=== PATIENT | male | born 1945 | race Caucasian/White ===

== ENCOUNTER 2018-06-16 11:11 | Inpatient (IN) | payer MEDICARE, SELFPAY ==
[2018-06-16] VITALS (32 sets, daily range): BP systolic 93–190; BP diastolic 40–164; PULSE 57–224; RESP 13–23; TEMP 36.3–37.4; O2SAT 92–99
--- NOTE | 2018-06-16 11:27 | DI.RAD_ITS ---
SYMPTOMS/DIAGNOSIS: COUGH CHEST X-RAY: Comparison is 12/05/15. Comparison x-ray of the left shoulder is 08/25/16. The heart size and pulmonary vasculature are stable and within normal limits. There is an opacity seen in the left upper lobe, not present on prior examinations. The lungs are otherwise clear. There are degenerative changes seen in the spine. Old right rib fractures are seen. IMPRESSION: Left upper lobe opacity suspicious for pneumonia. A follow-up chest x-ray is recommended in this patient to document complete resolution of the left upper lobe infiltrate.
[2018-06-16 11:43] LABS: Lactate-non-spesis 3.7 mmol/L (0.6-1.4)
[2018-06-16 11:46] LABS: Abs Immature Grans 0.09 k/cumm (0.0-0.09); Absolute Basophil Count 0.01 k/cumm (0.0-0.2); Absolute Monocyte Count 1.35 k/cumm (0.11-0.7); Basophils % 0.1; Eosinophils % 0.7; HCT 44.3 % (40.0-50.0); HGB 14.6 g/dL (13.5-17.5); Immature Grans % 0.7; Lymphocytes % 14.6; Mean Corpuscular Hemoglobin 30.6 pg (27.0-33.0); Mean Corpuscular Volume 92.9 fL (80-95); Mean Platelet Volume 10.7 fL (8.0-11.0); Monocytes % 9.8; Neutrophils % 74.1; Platelet Count 268 x1000/uL (130-400); RBC 4.77 m/cumm (4.50-6.00); RBC Distribution Width 13.6 % (11.8-14.1); White Blood Cell Count 13.73 k/cumm (4.4-10.8)
[2018-06-16 11:50] LABS: Absolute Neutrophil Count 10.17 k/cumm (1.2-6.7)
[2018-06-16 12:10] LABS: ALT 31 U/L (12-78); AST 24 U/L (15-37); Albumin 3.4 g/dL (3.4-5.0); Alkaline Phosphatase 129 U/L (46-116); Anion Gap 12.5 mmol/L (3-11); BUN 28 mg/dL (7-18); CO2 27.5 mmol/L (21.0-32.0); CREATININE 2.22 mg/dL (0.70-1.30); Calcium 10.7 mg/dL (8.5-10.1); Chloride 94 mmol/L (98-107); Estimated GFR 29.26 (mL/min/1.73m2); Glucose 130 mg/dL (70-100); Potassium 4.2 mmol/L (3.5-5.1); Sodium 134 mmol/L (136-145)
[2018-06-16 12:14] LABS: NT-proBNP 307 pg/mL; Troponin I < 0.02 ng/mL (0.00-0.06)
--- NOTE | 2018-06-16 12:44 | DI.CT_ITS ---
SYMPTOMS/DIAGNOSIS: ABDOMINAL PAIN CT SCAN OF THE ABDOMEN AND PELVIS: A noncontrast CT scan of the abdomen and pelvis was performed due to the patient 's decreased renal function. Emphysematous changes are seen in the lung bases. Lack of IV contrast does limit evaluation of the abdominal and pelvic organs. There is patient motion artifact, which does limit the examination. The unenhanced visualized portions of the liver, spleen, pancreas, gallbladder and adrenal glands are unremarkable. The kidneys show no evidence of nephrolithiasis or hydronephrosis. The urinary bladder is intact. The reproductive organs are grossly unremarkable. There is atherosclerosis of the abdominal aorta and an infrarenal abdominal aortic aneurysm. Maximum diameter is 4.5 cm. This compares with the ultrasound from 12/05/15, at which time it was measured at 4.9 cm. The bowel shows no evidence of obstruction or inflammation. There is diverticulosis of the colon but no evidence of acute diverticulitis. No evidence of an acute appendix is present. No abdominal or pelvic ascites, adenopathy or pneumoperitoneum is present. Degenerative changes are seen in the spine. IMPRESSION: 1. Stable 4.5 cm infrarenal abdominal aortic aneurysm. 2. No evidence of an acute abdomen. The findings were discussed with Dr. Stefanie Gutierrez of the Emergency Department on the date of the examination.
[2018-06-16] MEDS: LEVOFLOXACIN 500 MG, LEVOFLOXACIN 250 MG 750 MG PO (13:49)
[2018-06-16] MEDS: Normal Saline 1,000 ML 1000 ML IV (13:49)
--- NOTE | 2018-06-16 13:55 | W.ED.GENAD ---
Discharge Plan Disposition Condition: Improving Discharge Details Chief Complaint: Abd Prob Reason For Visit: PNEUMONIA Admit Date/Time: 06/16/18 13:54 Admit Provider: Boaz Ohara Attending Provider: Boaz Ohara Primary Care Provider: Fidelina Goodman ED Provider: Stefanie Gutierrez Discharge Instructions Activity:: Activity as Tolerated Equipment/Supplies:: No Equipment Needed Diet:: As Tolerated Discharge Orders Discharge Orders: Discharge Order (Routine); Ordered 06/19/18 Ordered By: Judith Chen Discharge Data Discharge Date/Time-TO BE ENTERED AT DEPARTURE: 06/16/18 14:27 Medical Decision Making Angelita Segal is a 73 y/o man with h/o multiple medical problems presenting to the emergency department with 2 weeks of abdominal pain, unchanged over that time, several episodes of vomiting. Also notes SOB and cough. On exam Pt is non-toxic appearing, mild diffuse abd TTP without peritoneal signs. Concern for gasritis vs pancreatitis vs IBS vs UTI vs PNA vs metabolic/lyte derangement vs CHF vs other. Given time course doubt acute aortic process, appy, mesenteric ischemia. Doubt ACS. Plan for EKG, CXR, screening labs, IVF hydration. Likely w/o contrast given CKD. Poor GFR. Considered risks/benefits of CTA, CT a/p with contrast, and given 2 week time course without change in abd pain, will hold contrast and perform CT w/o. CT okay. CXR shows PNA. Will treat for CAP and admit. Pt initially wanted to leave AMA, but reconsidered and agrees to stay. Clinical Impession: PNA Disposition: [facility] inpatient Medical Records Medical records reviewed: Yes I reviewed the patient's medical records. Imaging Data Radiologic Study: Attestation: I personally reviewed and interpreted this imaging study as follows: Radiologist's impression: CHEST X-RAY: Comparison is 12/05/15. Comparison x-ray of the left shoulder is 08/25/16. The heart size and pulmonary vasculature are stable and within normal limits. There is an opacity seen in the left upper lobe, not present on prior examinations. The lungs are otherwise clear. There are degenerative changes seen in the spine. Old right rib fractures are seen. IMPRESSION: Left upper lobe opacity suspicious for pneumonia. A follow-up chest x-ray is recommended in this patient to document complete resolution of the left upper lobe infiltrate. Patient Name: ANGELITA SEGAL #: [id number]: [place] Ordering Provider: Stefanie Gutierrez M.D. : ADM IN Primary Care Provider: Fidelina Goodman NPDate of Exam: 06/16/18ex: M : 1945ge: [id number] Exam(s) a CT:CT abdomen & pelvis wo SYMPTOMS/DIAGNOSIS: ABDOMINAL PAIN CT SCAN OF THE ABDOMEN AND PELVIS: A noncontrast CT scan of the abdomen and pelvis was performed due to the patient's decreased renal function. Emphysematous changes are seen in the lung bases. Lack of IV contrast does limit evaluation of the abdominal and pelvic organs. There is patient motion artifact, which does limit the examination. The unenhanced visualized portions of the liver, spleen, pancreas, gallbladder and adrenal glands are unremarkable. The kidneys show no evidence of nephrolithiasis or hydronephrosis. The urinary bladder is intact. The reproductive organs are grossly unremarkable. There is atherosclerosis of the abdominal aorta and an infrarenal abdominal aortic aneurysm. Maximum diameter is 4.5 cm. This compares with the ultrasound from 12/05/15, at which time it was measured at 4.9 cm. The bowel shows no evidence of obstruction or inflammation. There is diverticulosis of the colon but no evidence of acute diverticulitis. No evidence of an acute appendix is present. No abdominal or pelvic ascites, adenopathy or pneumoperitoneum is present. Degenerative changes are seen in the spine. IMPRESSION: 1. Stable 4.5 cm infrarenal abdominal aortic aneurysm. 2. No evidence of an acute abdomen. Lab Data Lab results reviewed: Yes I reviewed the patient's lab results. ECG Data Attestation: I personally reviewed and interpreted this ECG (s) as follows: Interpretation: EKG shows normal sinus rhythm at 78 with normal axis, diffuse ST changes with similar morphology seen on prior, no STEMI. HPI General Date/Time Provider Initiated Documentation: 06/16/18 11:26. Limitations to Documentation: no limitations. Information obtained by: patient, RN notes reviewed and old records reviewed. HPI Narrative: Angelita Segal is a 73-year-old man with h/o COPD, HLD, AAA, HTN, IBS, CKD, CAD presenting to the emergency department with 2 weeks of abdominal pain. Pt reports that pain is per-umbilical, non-radiating, and unchanged since onset. Pain is dull and constant. Pt was sent here for further eval by PCP's office. He reports that he feels essentially at baseline, but pain is nagging. Has continued to eat and drink normally. He denies any other pain, fever, d/c, weakness, n/t, lightheadedness. He reports that he has had a few episodes of non-bilious non-bloody emesis and cough over the past few days, also has been mildly SOB. Abdominal worse with movement and improved with rest, no other modifiers. No recent travel. No other recent illness. Not hospitalized in the past few months. Related Data Home Medications Medication Instructions Recorded Confirmed aspirin [Aspir-81] 81 mg PO DAILY tab-cap 12/12/15 06/23/18 fluticasone-salmeterol [Advair 1 ea INHALATION BID #3 inhaler 08/12/17 06/23/18 Diskus] albuterol sulfate [ProAir HFA] 1 - 2 puff INHALATION Q4-6H PRN #3 09/06/17 06/23/18 inhaler nitroglycerin [Nitrostat] 0.4 mg SUBLINGUAL PRN #25 tab 11/26/17 06/23/18 umeclidinium [Incruse Ellipta] 62.5 mcg INHALATION DAILY #3 11/26/17 06/23/18 inhaler hydrochlorothiazide 12.5 mg PO DAILY #90 tab-cap 12/19/17 06/23/18 lisinopril 20 mg PO DAILY #90 tab 12/19/17 06/23/18 loratadine 10 mg PO DAILY #90 tab-cap 12/19/17 06/23/18 metoprolol succinate 100 mg PO DAILY #90 tab 12/19/17 06/23/18 omeprazole 40 mg PO BID #30 cap 06/19/18 06/23/18 sennosides 8.6 mg tablet 8.6 mg PO BID PRN #20 tab 06/23/18 06/23/18 Previous Rx's Medication Instructions Recorded fluticasone-salmeterol [Advair 1 ea INHALATION BID #3 inhaler 08/12/17 Diskus] albuterol sulfate [ProAir HFA] 1 - 2 puff INHALATION Q4-6H PRN #3 09/06/17 inhaler nitroglycerin [Nitrostat] 0.4 mg SUBLINGUAL PRN #25 tab 11/26/17 umeclidinium [Incruse Ellipta] 62.5 mcg INHALATION DAILY #3 11/26/17 inhaler hydrochlorothiazide 12.5 mg PO DAILY #90 tab-cap 12/19/17 lisinopril 20 mg PO DAILY #90 tab 12/19/17 loratadine 10 mg PO DAILY #90 tab-cap 12/19/17 metoprolol succinate 100 mg PO DAILY #90 tab 12/19/17 omeprazole 40 mg PO BID #30 cap 06/19/18 sennosides 8.6 mg tablet 8.6 mg PO BID PRN #20 tab 06/23/18 Allergies Allergy/AdvReac Type Severity Reaction Status Date / Time benazepril Allergy Mild unknown Unverified 06/23/18 14:10 ezetimibe Allergy Mild NO Unverified 06/23/18 14:10 REACTION NOTED pravastatin Allergy Mild NO Unverified 06/23/18 14:10 REACTION NOTED erythromycin base AdvReac Mild GI SYMPTOMS Unverified 06/23/18 14:10 fenofibrate AdvReac Mild ABDOMINAL Unverified 06/23/18 14:10 PAIN niacin AdvReac Mild FLUSHING Unverified 06/23/18 14:10 REDNESS nortriptyline AdvReac Mild NAUSEA Unverified 06/23/18 14:10 omeprazole AdvReac Mild BACK PAIN Unverified 06/23/18 14:10 General Stated Complaint: Abd Prob LUIS: 2 Review of Systems Review of Systems Constitutional: denies fevers Eyes: denies eye pain ENT: denies facial pain, dental pain, sore throat Cardiovascular: denies chest pain, edema Respiratory: reports SOB, cough GI: reports abdominal pain, vomiting, denies diarrhea : denies flank pain MSK: denies back pain, neck pain, arthralgias, myalgias Skin: denies rash Neuro: denies headaches, lightheadedness, weakness PFSH Family History Mother No problems noted. Father Myocardial infarction Medical History AAA (abdominal aortic aneurysm) ASCVD (arteriosclerotic cardiovascular disease) Headache HLD (hyperlipidemia) COPD (chronic obstructive pulmonary disease) GERD (gastroesophageal reflux disease) HTN (hypertension) IBS (irritable bowel syndrome) ASCVD (arteriosclerotic cardiovascular disease) (Chronic 03/04/13) Essential hypertension (Chronic 03/04/13) PVD (peripheral vascular disease) (Chronic 04/08/15) Hyperlipidemia, unspecified (Chronic 03/04/13) Gastroesophageal reflux disease (Chronic 10/02/11) Chronic obstructive pulmonary disease (COPD) (Chronic 10/02/11) Chronic kidney disease (CKD), stage III (moderate) (Chronic 09/23/13) 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) Anxiety (Chronic 10/02/11) Abdominal aortic aneurysm (AAA) (Chronic 10/02/11) Hypercalcemia (Resolved 07/19/16) Social History Smoking/Tobacco Use Status: Former Tobacco Use Surgical History Coronary Stent (08/05/06) Repair of inguinal hernia Trigger Finger release (05/06/16) Exam Narrative Exam Narrative: Constitutional: [id number], pleasant, conversing normally HENT: head atraumatic, normocephalic normal inspection, mucous membranes moist Eyes: conjunctiva normal, sclera normal, pupils 3mm b/l Neck: no stridor, normal ROM, trachea midline Chest: normal inspection Resp: normal work of breathing, LCTAB Cardio: normal rate, normal rhythm, no murmur appreciated GI: abdomen soft, non-distended, mild generalized TTP without peritoneal signs, neg McBpt TTP, neg murphys, no mass Back: normal inspection, no rash Skin: warm, dry, normal color, no rash Neuro: alert, not altered, grossly non-focal, normal tone Ext: no edema Psych: normal mood, normal affect, normal behavior Course Vital Signs Temperature 36.3 C L 06/16/18 11:17 Pulse 78 06/16/18 11:17 Respiratory Rate 20 06/16/18 11:17 Blood Pressure 102/51 L 06/16/18 11:17 Pulse Oximetry 98 06/16/18 11:17 Temperature 37 C 06/16/18 12:27 Temperature Source Temporal Artery Scan 06/16/18 12:27 Pulse 80 06/16/18 12:27 Respiratory Rate 14 06/16/18 12:27 Respiratory Effort Non-Labored 06/16/18 11:25 Blood Pressure 93/52 L 06/16/18 12:27 Blood Pressure Position Sitting 06/16/18 11:17 Pulse Oximetry 97 06/16/18 12:27 Oxygen Delivery Method Room Air 06/16/18 12:27 Oxygen Flow Rate 0 06/16/18 12:27 Pain Level 10 06/16/18 12:27 Lab/Test Results Lab/Test Results: 06/16/18 11:30 Nasopharynx Influenza Types A,B Antigen - Final Laboratory Tests Range/Units 06/16/18 06/16/18 06/16/18 11:25 11:25 11:25 WBC (4.4-10.8) k/cumm 13.73 H RBC (4.50-6.00) m/cumm 4.77 Hgb (13.5-17.5) g/dL 14.6 Hct (40.0-50.0) % 44.3 MCV (80-95) fL 92.9 MCH (27.0-33.0) pg 30.6 MCHC (32.0-36.0) g/dL 33.0 RDW (11.8-14.1) % 13.6 Plt Count (130-400) x1000/uL 268 MPV (8.0-11.0) fL 10.7 Immature Gran % 0.7 Neutrophils % 74.1 Lymphocytes % 14.6 Monocytes % 9.8 Eosinophils % 0.7 Basophils % 0.1 Absolute Neutrophils (1.2-6.7) k/cumm 10.17 H Absolute Lymphocytes (1.2-3.4) k/cumm 2.00 Absolute Monocytes (0.11-0.7) k/cumm 1.35 H Absolute Eosinophils (0.0-0.7) k/cumm 0.10 Absolute Basophils (0.0-0.2) k/cumm 0.01 Sodium (136-145) mmol/L 134 L Potassium (3.5-5.1) mmol/L 4.2 Chloride (98-107) mmol/L 94 L Carbon Dioxide (21.0-32.0) mmol/L 27.5 Anion Gap (3-11) mmol/L 12.5 H BUN (7-18) mg/dL 28 H Creatinine (0.70-1.30) mg/dL 2.22 H Estimated GFR/1.73 m2 (mL/min/1.73m2) 29.26 Glucose (70-100) mg/dL 130 H Lactate (0.6-1.4) mmol/L Calcium (8.5-10.1) mg/dL 10.7 H Total Bilirubin (0.2-1.0) mg/dL 1.0 AST (15-37) U/L 24 ALT (12-78) U/L 31 Alkaline Phosphatase (46-116) U/L 129 H Troponin I (0.00-0.06) ng/mL < 0.02 NT-Pro-B Natriuret Pep ( - 299) pg/mL 307 H Total Protein (6.4-8.2) g/dL 8.0 Albumin (3.4-5.0) g/dL 3.4 Range/Units 06/16/18 11:25 WBC (4.4-10.8) k/cumm RBC (4.50-6.00) m/cumm Hgb (13.5-17.5) g/dL Hct (40.0-50.0) % MCV (80-95) fL MCH (27.0-33.0) pg MCHC (32.0-36.0) g/dL RDW (11.8-14.1) % Plt Count (130-400) x1000/uL MPV (8.0-11.0) fL Immature Gran % Neutrophils % Lymphocytes % Monocytes % Eosinophils % Basophils % Absolute Neutrophils (1.2-6.7) k/cumm Absolute Lymphocytes (1.2-3.4) k/cumm Absolute Monocytes (0.11-0.7) k/cumm Absolute Eosinophils (0.0-0.7) k/cumm Absolute Basophils (0.0-0.2) k/cumm Sodium (136-145) mmol/L Potassium (3.5-5.1) mmol/L Chloride (98-107) mmol/L Carbon Dioxide (21.0-32.0) mmol/L Anion Gap (3-11) mmol/L BUN (7-18) mg/dL Creatinine (0.70-1.30) mg/dL Estimated GFR/1.73 m2 (mL/min/1.73m2) Glucose (70-100) mg/dL Lactate (0.6-1.4) mmol/L 3.7 H Calcium (8.5-10.1) mg/dL Total Bilirubin (0.2-1.0) mg/dL AST (15-37) U/L ALT (12-78) U/L Alkaline Phosphatase (46-116) U/L Troponin I (0.00-0.06) ng/mL NT-Pro-B Natriuret Pep ( - 299) pg/mL Total Protein (6.4-8.2) g/dL Albumin (3.4-5.0) g/dL
[2018-06-16] MEDS: LEVOFLOXACIN 750 MG/150 ML BAG 150 MG IVPB (14:08)
--- NOTE | 2018-06-16 14:27 | W.PM.HP.N ---
Date of service: 06/16/18 Time of Service: 14:27 Assessment and Plan (1) Pneumonia involving left lung: Current visit: Yes Status: Acute Mild leukocytosis with cough. The abdominal pain could be related to his left-sided pneumonia. Empirically treated with Levofloxacin. He received a 750 mg IV bolus. Given his acute renal dysfunction will put him on 48-hour dosing of 500 mg daily. He is not hypoxic nor in any respiratory distress. PRN albuterol updrafts. (2) Abdominal pain: Current visit: Yes Status: Acute He has had this abdominal pain off and on for the last 2 weeks. He has a number of potential reasons for the abdominal pain including an abdominal aortic aneurysm, irritable bowel disease, pneumonia, heart disease. No clear etiology at this time. His exam is quite benign and the abdominal CT scan is reassuring. Will repeat his lactate level and troponins. Monitor for any signs or symptoms of bleeding. (3) AAA (abdominal aortic aneurysm): Current visit: Yes Status: None 4.9 cm aortic aneurysm by ultrasound 12/05/2015. This does not appear further enlarged by CT scan today. No evidence of leakage. Serial exams and close monitoring. (4) IBS (irritable bowel syndrome): Current visit: Yes Status: None Likely cause of his ongoing intermittent abdominal pain. Continue as needed Levsin. (5) ASCVD (arteriosclerotic cardiovascular disease): Current visit: No Status: Chronic History of prior stent placement. There does not appear to be an acute coronary syndrome at this time. History of Present Illness Chief Complaint: Abdominal pain with cough Narrative: This is a 73-year-old male who has had about a 2-week history of diffuse abdominal pain. Workup to date has been negative. He states there is been associated vomiting. He described the pain as so bad he cannot lay down flat. He describes the pain as around his umbilicus. Workup in the emergency room was negative including a noncontrast abdominal CT scan. He does have a mild leukocytosis and chest x-ray shows a left upper lobe pneumonia. He does have an associated cough but denied fever chills or Reiger's. He is admitted for further monitoring. He does have a history of an abdominal aortic aneurysm but that does not appear to be playing a role in his symptomatology at this time. He will be treated for pneumonia and serial abdominal exams. Review of Systems Review of Systems All systems reviewed & are unremarkable except as noted in HPI and below Constitutional Denies excessive sweating, Denies frequent falls and Denies headache(s) Comments: Describes severe periumbilical abdominal pain such that he cannot even lay down flat ENT Denies headache(s) and Denies throat swelling Cardiovascular Denies chest pain, Denies edema, Denies dyspnea, Denies dyspnea on exertion and Denies orthopnea Respiratory Reports cough (He states this is better), Denies dyspnea and Denies dyspnea on exertion Gastrointestinal Reports abdominal pain (Naveen umbilical), Denies coffee ground emesis, Denies diarrhea and Reports vomiting Genitourinary Denies urinary frequency and Denies urinary incontinence Musculoskeletal Denies back pain and Denies deformity Integumentary/Breasts Denies rash, Denies sores and Denies wounds Neurologic Denies confusion, Denies frequent falls and Denies headache(s) Psychiatric Denies confusion, Denies depression and Denies suicidal ideation Endocrine Denies excessive sweating Hematologic/Lymphatic Denies easy bleeding and Denies easy bruising Allergic/Immunologic Denies urticaria and Denies throat swelling PFSH Family History Mother No problems noted. Father Myocardial infarction Medical History AAA (abdominal aortic aneurysm) ASCVD (arteriosclerotic cardiovascular disease) Headache HLD (hyperlipidemia) COPD (chronic obstructive pulmonary disease) GERD (gastroesophageal reflux disease) HTN (hypertension) IBS (irritable bowel syndrome) ASCVD (arteriosclerotic cardiovascular disease) (Chronic 03/04/13) Essential hypertension (Chronic 03/04/13) PVD (peripheral vascular disease) (Chronic 04/08/15) Hyperlipidemia, unspecified (Chronic 03/04/13) Gastroesophageal reflux disease (Chronic 10/02/11) Chronic obstructive pulmonary disease (COPD) (Chronic 10/02/11) Chronic kidney disease (CKD), stage III (moderate) (Chronic 09/23/13) 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) Anxiety (Chronic 10/02/11) Abdominal aortic aneurysm (AAA) (Chronic 10/02/11) Hypercalcemia (Resolved 07/19/16) Social History Smoking/Tobacco Use Status: Former Tobacco Use Surgical History Coronary Stent (08/05/06) Repair of inguinal hernia Trigger Finger release (05/06/16) Meds Home Medications Medication Instructions Recorded Confirmed Type aspirin [Aspir-81] 81 mg PO DAILY tab-cap 12/12/15 06/16/18 History hyoscyamine sulfate [Levsin] 0.125 - 0.25 mg PO Q4H PRN #100 tab 07/24/17 06/16/18 Rx dexlansoprazole [Dexilant] 30 mg PO DAILY #90 tab-cap 08/12/17 06/16/18 Rx fluticasone-salmeterol [Advair 1 ea INHALATION BID #3 inhaler 08/12/17 06/16/18 Rx Diskus] albuterol sulfate [ProAir HFA] 1 - 2 puff INHALATION Q4-6H PRN #3 09/06/17 06/16/18 Rx inhaler nitroglycerin [Nitrostat] 0.4 mg SUBLINGUAL PRN #25 tab 11/26/17 06/16/18 Rx umeclidinium [Incruse Ellipta] 62.5 mcg INHALATION DAILY #3 11/26/17 06/16/18 Rx inhaler hydrochlorothiazide 12.5 mg PO DAILY #90 tab-cap 12/19/17 06/16/18 Rx lisinopril 20 mg PO DAILY #90 tab 12/19/17 06/16/18 Rx loratadine 10 mg PO DAILY #90 tab-cap 12/19/17 06/16/18 Rx metoprolol succinate 100 mg PO DAILY #90 tab 12/19/17 06/16/18 Rx Atorvastatin Calcium 20 mg PO DAILY #90 tab-cap 04/02/18 06/16/18 Clinic Allergies Allergy/AdvReac Type Severity Reaction Status Date / Time benazepril Allergy Mild unknown Unverified 06/16/18 10:41 ezetimibe Allergy Mild NO Unverified 06/16/18 10:41 REACTION NOTED pravastatin Allergy Mild NO Unverified 06/16/18 10:41 REACTION NOTED erythromycin base AdvReac Mild GI SYMPTOMS Unverified 06/16/18 10:41 fenofibrate AdvReac Mild ABDOMINAL Unverified 06/16/18 10:41 PAIN niacin AdvReac Mild FLUSHING Unverified 06/16/18 10:41 REDNESS nortriptyline AdvReac Mild NAUSEA Unverified 06/16/18 10:41 omeprazole AdvReac Mild BACK PAIN Unverified 06/16/18 10:41 Exam Narrative Exam Narrative: Generally pleasant and in no apparent distress. He is lying flat on the stretcher. He had no cough or dyspnea during my exam Const General: cooperative, comfortable, no acute distress and not diaphoretic Nutritional Appearance: overweight Orientation: alert, awake and oriented x3 HENMT Head: normal to inspection Ears: hearing grossly normal bilaterally General nose exam: external nose normal Face and sinus: normal facial exam Mouth: oral mucosae normal Eyes General: appearance normal, both eyes and all related structures Neck Neck: normal visual inspection Chest Chest: normal inspection of the chest Resp Effort & Inspection: normal respiratory effort Auscultation: clear to auscultation bilaterally Cardio Rate: regular rate Rhythm: regular rhythm Heart Sounds: S1 normal, S2 normal and no murmurs GI Inspection: normal to inspection and no abdominal wall ecchymosis Palpation: soft, no hepatosplenomegaly, no aortic enlargement, no hepatosplenomegaly and nontender (Subjective tenderness in a bandlike pattern across the upper abdomen) Percussion: normal to percussion Auscultation: normal bowel sounds Back/Spine/Pelvis Back: no CVA tenderness Thoracic/Lumbar Spine: thoracic and lumbar spine normal to inspection Skin General skin exam: no rashes or lesions noted Lesions: no lesions Neuro General: moves all extremities Speech: speech normal Extrem General: normal to inspection and no edema Psych Appearance: grossly normal Mental Status: mental status grossly normal Speech and Movement: speech and movement normal Mood: congruent mood Affect: normal affect Attitude: cooperative Thought Process: normal Results Labs : 06/16/18 11:25 06/16/18 11:25 Laboratory Results - last 24 hr 06/16/18 06/16/18 06/16/18 11:25 11:25 11:25 WBC 13.73 H RBC 4.77 Hgb 14.6 Hct 44.3 MCV 92.9 MCH 30.6 MCHC 33.0 RDW 13.6 Plt Count 268 MPV 10.7 Immature Gran % 0.7 Neutrophils % 74.1 Lymphocytes % 14.6 Monocytes % 9.8 Eosinophils % 0.7 Basophils % 0.1 Absolute Neutrophils 10.17 H Absolute Lymphocytes 2.00 Absolute Monocytes 1.35 H Absolute Eosinophils 0.10 Absolute Basophils 0.01 Sodium 134 L Potassium 4.2 Chloride 94 L Carbon Dioxide 27.5 Anion Gap 12.5 H BUN 28 H Creatinine 2.22 H Estimated GFR/1.73 m2 29.26 Glucose 130 H Lactate Calcium 10.7 H Total Bilirubin 1.0 AST 24 ALT 31 Alkaline Phosphatase 129 H Troponin I < 0.02 NT-Pro-B Natriuret Pep 307 H Total Protein 8.0 Albumin 3.4 06/16/18 11:25 WBC RBC Hgb Hct MCV MCH MCHC RDW Plt Count MPV Immature Gran % Neutrophils % Lymphocytes % Monocytes % Eosinophils % Basophils % Absolute Neutrophils Absolute Lymphocytes Absolute Monocytes Absolute Eosinophils Absolute Basophils Sodium Potassium Chloride Carbon Dioxide Anion Gap BUN Creatinine Estimated GFR/1.73 m2 Glucose Lactate 3.7 H Calcium Total Bilirubin AST ALT Alkaline Phosphatase Troponin I NT-Pro-B Natriuret Pep Total Protein Albumin Last Vital Signs Temp 37 C 06/16/18 12:27 Pulse 80 06/16/18 12:27 Resp 14 06/16/18 12:27 BP 93/52 L 06/16/18 12:27 Pulse Ox 97 06/16/18 12:27
[2018-06-16] MEDS: Normal Saline 1,000 ML 75 ML IV (15:04)
[2018-06-16] MEDS: Enoxaparin 30 MG/0.3 ML SYR SC (15:14)
[2018-06-16] MEDS: Normal Saline Flush 10 ML SYR (15:41)
[2018-06-16 15:45] LABS: Lactate-non-spesis 1.7 mmol/L (0.6-1.4)
[2018-06-16 16:29] LABS: Troponin I < 0.02 ng/mL (0.00-0.06)
--- NOTE | 2018-06-16 17:01 | PDOC.CMIN ---
- If Service Date Differs Date of service: 06/16/18 Time of Service: 17:01 Care Management Initial Assess REASON FOR HOSPITALIZATION:: Pneumonia PAST MEDICAL HISTORY/PAST SURGICAL HISTORY:: AAA, ASCVD, COPD, HTN, IBS, GERD, CKD, Nava's esophagus, anxiety. PREVIOUS FUNCTIONAL STATUS/SOCIAL/FAMILY SUPPORTS:: John is retierd from [place] after 45 years. He has no children he and his brother care for his 97 year old mother. He lives in his own home with his mother and brother. He is independent at baseline with ADL's and transportation. CURRENT FUNCTIONAL STATUS:: Jhon is in the ED when CM into visit he alert and engaged. He is worried about being admitted to the hospital and the cost. CM reviewed benefits with the patient related to his medicare and offered to complete fiancial assitance applicaiton with the patient. He agrees to be admitted for IV antibiotics. ADVANCE DIRECTIVES:: None on file at [facility] Has patient been provided with information about the portal?: Yes Did the patient sign up for the portal?: No CODE STATUS:: Full Code INSURANCE COVERAGE / FINANCIAL ISSUES:: Medicare CURRENT HOME/COMMUNITY SERVICES/EQUIPMENT:: None at this time per pt report. PRIMARY CARE PHYSICIAN:: [facility] Internal med POTENTIAL DISCHARGE NEEDS:: Follow up appointment ivette with primary care provider prior to discharge. PATIENT/FAMILY EDUCATION NEEDS:: Discharge education. limitations and follow up plan of care. ANTICIPATED BARRIERS TO DISCHARGE:: None identified TRANSPORTATION:: Via private car at time of discharge. PLAN:: John is being admitted for abdomial pain and pneumonia. He is receiving IV antibiotics and fluids. He will be discharged home when medically ready no anticipated services at time of discharge. CM to complete financial assistance application with patient prior to discharge.
--- NOTE | 2018-06-16 17:22 | INITIAL_ITS ---
- If Service Date Differs Date of service: 06/16/18 Time of Service: 17:01 Care Management Initial Assess REASON FOR HOSPITALIZATION:: Pneumonia PAST MEDICAL HISTORY/PAST SURGICAL HISTORY:: AAA, ASCVD, COPD, HTN, IBS, GERD, CKD, Nava's esophagus, anxiety. PREVIOUS FUNCTIONAL STATUS/SOCIAL/FAMILY SUPPORTS:: John is retierd from [place] after 45 years. He has no children he and his brother care for his 97 year old mother. He lives in his own home with his mother and brother. He is independent at baseline with ADL's and transportation. CURRENT FUNCTIONAL STATUS:: John is in the ED when CM into visit he alert and engaged. He is worried about being admitted to the hospital and the cost. CM reviewed benefits with the patient related to his medicare and offered to complete fiancial assitance applicaiton with the patient. He agrees to be admitted for IV antibiotics. ADVANCE DIRECTIVES:: None on file at [facility] Has patient been provided with information about the portal?: Yes Did the patient sign up for the portal?: No CODE STATUS:: Full Code INSURANCE COVERAGE / FINANCIAL ISSUES:: Medicare CURRENT HOME/COMMUNITY SERVICES/EQUIPMENT:: None at this time per pt report. PRIMARY CARE PHYSICIAN:: [facility] Internal med POTENTIAL DISCHARGE NEEDS:: Follow up appointment ivette with primary care provider prior to discharge. PATIENT/FAMILY EDUCATION NEEDS:: Discharge education. limitations and follow up plan of care. ANTICIPATED BARRIERS TO DISCHARGE:: None identified TRANSPORTATION:: Via private car at time of discharge. PLAN:: John is being admitted for abdomial pain and pneumonia. He is receiving IV antibiotics and fluids. He will be discharged home when medically ready no anticipated services at time of discharge. CM to complete financial assistance application with patient prior to discharge.
[2018-06-16] MEDS: Budesonide/Formoterol 160/4.5 6 GM 60 PUFF INH IH (19:42)
[2018-06-16 21:07] LABS: Troponin I < 0.02 ng/mL (0.00-0.06)
[2018-06-16] MEDS: Atorvastatin 20 MG TAB PO (21:21)
[2018-06-16] MEDS: Acetaminophen 325 MG TAB PO (23:38)
[2018-06-17] VITALS (10 sets, daily range): BP systolic 105–179; BP diastolic 57–80; PULSE 54–89; RESP 4–19; TEMP 36.3–37.3; O2SAT 92–97
[2018-06-17] MEDS: Normal Saline 1,000 ML 75 ML IV (04:04)
[2018-06-17 05:59] LABS: Bilirubin Negative (Negative); Blood Negative (Negative); Clarity Sl Cloudy; Glucose Negative (Negative); Ketones Trace mg/dL (Negative); Leukocyte Esterase Negative (Negative); Nitrite Negative (Negative); Urobilinogen 0.2 EU/dL (Up TO 0.2); pH 5.5 (5-8)
[2018-06-17] MEDS: Acetaminophen 325 MG TAB PO ×2 (06:49→21:17)
[2018-06-17 06:57] LABS: Abs Immature Grans 0.04 k/cumm (0.0-0.09); Absolute Basophil Count 0.01 k/cumm (0.0-0.2); Absolute Eosinophil Count 0.12 k/cumm (0.0-0.7); Absolute Lymphocyte Count 1.31 k/cumm (1.2-3.4); Absolute Monocyte Count 0.75 k/cumm (0.11-0.7); Basophils % 0.2; Eosinophils % 1.9; HCT 36.8 % (40.0-50.0); HGB 12.1 g/dL (13.5-17.5); Immature Grans % 0.6; Lymphocytes % 21.2; Mean Corp. HGB Concentration 32.9 g/dL (32.0-36.0); Mean Corpuscular Hemoglobin 30.7 pg (27.0-33.0); Mean Corpuscular Volume 93.4 fL (80-95); Mean Platelet Volume 10.4 fL (8.0-11.0); Monocytes % 12.1; Platelet Count 162 x1000/uL (130-400); RBC 3.94 m/cumm (4.50-6.00); RBC Distribution Width 13.2 % (11.8-14.1); White Blood Cell Count 6.18 k/cumm (4.4-10.8)
[2018-06-17 06:58] LABS: Absolute Neutrophil Count 3.96 k/cumm (1.2-6.7)
[2018-06-17 07:18] LABS: ALT 22 U/L (12-78); AST 20 U/L (15-37); Albumin 2.4 g/dL (3.4-5.0); Alkaline Phosphatase 97 U/L (46-116); Anion Gap 6.2 mmol/L (3-11); BUN 26 mg/dL (7-18); Bilirubin, Total 0.5 mg/dL (0.2-1.0); CO2 27.8 mmol/L (21.0-32.0); CREATININE 1.83 mg/dL (0.70-1.30); Calcium 9.2 mg/dL (8.5-10.1); Chloride 104 mmol/L (98-107); Estimated GFR 36.57 (mL/min/1.73m2); Glucose 101 mg/dL (70-100); Potassium 4.7 mmol/L (3.5-5.1); Sodium 138 mmol/L (136-145); Total Protein 6.1 g/dL (6.4-8.2)
[2018-06-17] MEDS: Umeclidinium 7 CAP INHALER 1 CAP IH (07:42)
[2018-06-17] MEDS: Budesonide/Formoterol 160/4.5 6 GM 60 PUFF INH IH ×2 (07:45→21:13)
[2018-06-17] MEDS: Dexlansoprazole 30 MG CAP PO (08:00)
[2018-06-17 09:16] LABS: Lactate-non-spesis 0.9 mmol/L (0.6-1.4)
--- NOTE | 2018-06-17 10:07 | PT.INIE ---
Date of service: 06/17/18 Time of Service: 10:07 PT Notes Inpatient Physical Therapy Evaluation Date: 06/17/18 Referring Doctor: Boaz Ohara PT Orders: PT CONSULT: elderly male with pneumonia and abdominal pain. deconditioned. Precautions: Fall precautions Patient Profile/Admitting Diagnosis: Pt is a 73yr old male admitted abdominal pain and pneumonia. PMHX: chronic obstructive pulmonary disease, abdominal aortic aneurysm, arteriosclerotic cardiovascular disease, myocardial infarction, peripheral vascular disease, compression fracture, anxiety, chronic kidney disease, hypertension, hyperlipidemia, gastroesophageal reflux disease, Nava's Esophagus Social History/Home Situation: Lives in a house, 2 steps with railing to enter, baseline mobility independent gait with no device, independent with ADLS. Equipment Owned/DME: none Subjective: Pt sitting in recliner chair, alert and agreeable to PT Consult. Pt states he can walk. Objective: General Observation: telemetry Mental Status: A & Ox3 Pain: no c/o pain Bed Mobility/Transfers: Sit-stand: independent Stand-sit: independent Gait: independent with no device 300ft, steady step through gait pattern no loss of balance Stairs: up/down 5 steps with single railing, independent, step over step sequence Balance: Static Sitting: normal Dynamic Sitting: normal Static Standing: normal Dynamic Standing: good Special Tests: Mobility Limitations Standardized Measure [facility] 6 clicks Basic Mobility Inpatient Short Form: Raw Score: 24 Standardized Score: 61.14 CMS Score: 0% CMS Modifier: CH Informed Consent/Education: Patient instructed in purpose of PT consult and plan of care. Assessment: Pt is a 73yr old male admitted abdominal pain and pneumonia in setting of chronic obstructive pulmonary disease, abdominal aortic aneurysm. Patient presents at baseline level of functional mobility, independent with transfers, independent gait with no device, independent with stairs. Pt is not in need of skilled therapy services, recommend nursing walk patient's in hallway until discharge to maintain, anticipate return to home setting when medically cleared. Impairments are contributing to the following functional limitations: AMPAC score CMS Score: 0% Patient is assessed as a Low 29841 complexity based on the following: History: see above Examination: see above Presentation: stable Decision Making: AMPAC score CMS Score: 0% Goals: not applicable Plan of Care/Treatment Plan: PT eval DISCHARGE RECOMMENDATIONS: Home TREATMENT CODE/TIME: 24 IE 10:05 G Codes in the area mobility of walking and moving around: current status [id number] []; projected status GP G8979-[]. Discharge status (if discharging) GP G8980 -[facility] score [facility] Score: 0% Sue Cm PT
--- NOTE | 2018-06-17 10:24 | PDOC.CMPRO ---
- If Service Date Differs Date of service: 06/17/18 Time of Service: 10:24 Care Management Progress Note S/O: CM met with the patient at the bedside and provided the financial assistance application and will follow up with patient in the morning. CM to send it to patient accounts he will need to follow up with additional information. John will have an ultra sound today to evaluate his aortic aneurism. He continues on IV antibiotics and pain control for his abdominal pain. A:John is a 73 year old male admitted with pneumonia and abdominal pain P:John remains on IV antibiotic he will have an ultra sound today. John will be discharged home when medically ready per provider.
[2018-06-17] MEDS: Pantoprazole 40 MG VIAL IVP (10:38)
--- NOTE | 2018-06-17 11:43 | NUR.NOTE ---
Nursing Note: Pt arrived from PACU, VSS, A&Ox3, denies pain. Home CPAP with Pt. Goodwin in place, cryo cuff on, IV patent. HR reg, LS clear. Back sl bloody from spinal, not actively bleeding. CMST's WNL. will con't to monitor.
--- NOTE | 2018-06-17 14:16 | CHAPLAIN ---
John was up in his chair when I visited. He was pleasant and engaged in a conversation. He doesn't expect any family member will be in to visit, due to the weather. He and his brother care for their mother in John's home. John tells me he retired 5 years ago from working at [employer] for many years, at a job he really enjoyed. I explained my role and offered support. John said he knew there were chaplains here at the [facility].
--- NOTE | 2018-06-17 14:43 | PHARADMIT ---
Admission Pharmacy Clinical Review pneumonia Code Status Full Code Current Weight 75.3 kg Renally Cleared and Narrow Therapeutic Index Meds Crcl ~34.00 mL/min current meds okay QTc Value / Action Taken QTc 483 has levofloxacin and formotorol ordered BP Control, Fever BP 179/73 afebrile Electrolytes reviewed within normal limits DVT Prophylaxis enoxaparin Opiate Usage / Scheduled Bowel Regimen Ordered no/prn Plt/SCr for Heparin / Enoxaparin plt 162 (down from 268) SCr 1.83 INR for Warfarin n/a H/H stable, WBC/Bands h/h 12.1/36.8 wbc 6.18 Antibiotic appropriateness levofloxacin Cultures and Sensitivities influenza negative Surgical ABX d/c within 24 hr n/a DM control / Insulin Dosing BG 101 none Heart Failure (Check EF%) (ALYSSIA's, B-Block, Diuretics) lisinopril, HCTZ, metoprolol (all home meds/not currently ordered) IV to PO Switch n/a Home Meds Reviewed multiple anticholinergic meds- umeclidinium, hyoscyamine, loratadine Home Meds Not Ordered aspirin, dexlansoprazole (has pantoprazole ordered), advair (has symbicort ordered), HCTZ, lisinopril, loratadine, metoprolol Comments watch platelets
--- NOTE | 2018-06-17 15:47 | PGE_ITS ---
Date of Service Date of service: 06/17/18 Time of Service: 15:46 Assessment and Plan (1) Pneumonia involving left lung: Current visit: Yes Status: Acute Continue Levofloxacin day #2 - increase dose secondary to improved renal function. Continue prn nebs. (2) Abdominal pain: Current visit: Yes Status: Acute Intermittent, mild, achy upper abdominal pain over the last few weeks. CT with stable AAA, as confirmed by conversation with radiologist. Patient also with a prior history of IBS, but cannot perform CT with contrast to rule out potential mesenteric ischemia given history of Global Vascular Disease, but symptoms are not related to eating. No clear etiology at this time. LFTs are normal. Check a lipase but doubt pancreatitis. Change oral to IV PPI therapy. Mild anemia, not microcytic - monitor. His exam is and remains benign, and abdominal imaging is reassuring. Monitor for any signs or symptoms of bleeding. (3) AAA (abdominal aortic aneurysm): Current visit: Yes Status: None 4.9 cm aortic aneurysm by ultrasound 12/05/2015, confirmed stable by CT as above. Discussed with radiology - while cannot confirm lack of dissection without IV Contrast, no utility in repeat imaging with Ultrasound. Monitor. Plan on reinitiation of ALYSSIA-I and BB tomorrow. Continue statin therapy as well. Chronically on antiplatelet therapy with aspirin. (4) IBS (irritable bowel syndrome): Current visit: Yes Status: None Potential cause of his ongoing intermittent abdominal pain. (5) ASCVD (arteriosclerotic cardiovascular disease): Current visit: No Status: Chronic History of prior stent placement. Appears quiescent. BB on hold. Continue ASA, statin. (6) ROGER (acute kidney injury): Current visit: Yes Status: Acute ROGER superimposed on CKD. Improved. Monitor renal function, renally dose medications, and avoid nephrotoxins. (7) DVT prophylaxis: Current visit: Yes Status: Acute Renally dosed SC Lovenox. Subjective Interval history since last seen: 73-year-old man with a prior history of Global Vascular disease with AAA, PVD, and CAD s/p stents, as well as IBS, COPD , and CKD III admitted on 06/16 from [facility] emergency department with a diagnosis of Pneumonia. Mr. Segal initially reported a 2-week history of diffuse abdominal pain and vomiting, which today he states has been ongoing for approximately one month. Workup to date has been reportedly negative. Workup in the emergency room was negative including a noncontrast abdominal CT scan that showed a stable 4.5 cm infrarenal AAA without other acute abnormalities. CXR performed however showed evidence of a PAU infiltrate. He also had mild leukocytosis, elevated lactate, and chest x-ray shows a left upper lobe pneumonia. He also reported an associated cough but denied fevers or chills. The patient's leukocytosis has resolved and lactate normalized this morning. His vitals have improved, and he feels better from a respiratory standpoint. However, he reports a continued, dull, and mild epigastric pain that is essentially unchanged. No other events reported. Remains afebrile. Exam Narrative Exam Narrative: General: Patient appears comfortable, AAOX3, NAD Neck: Supple CV: Regular, nontachycardic, S1S2, No rubs, murmurs, or gallops. Pulmonary: Decreased left sided breath sounds, more pronounced in the upper lobe , no crackles, wheezing, or rhonchi Abdomen: + Bowel Sounds, soft, nondistended, minimal tenderness with palpation of epigastrium/LUQ Vascular: No lower extremity edema Psych: Normal mood and affect. Objective Objective Clinical Data: Abnormal lab results 06/16/18 06/16/18 06/17/18 Range/Units 15:37 23:10 06:15 RBC (4.50-6.00) m/cumm Hgb (13.5-17.5) g/dL Hct (40.0-50.0) % Absolute Monocytes (0.11-0.7) k/cumm BUN 26 H (7-18) mg/dL Creatinine 1.83 H (0.70-1.30) mg/dL Glucose 101 H (70-100) mg/dL Lactate 1.7 H (0.6-1.4) mmol/L Total Protein 6.1 L (6.4-8.2) g/dL Albumin 2.4 L (3.4-5.0) g/dL Urine Ketones Trace H (Negative) mg/dL 06/17/18 Range/Units 06:15 RBC 3.94 L (4.50-6.00) m/cumm Hgb 12.1 L D (13.5-17.5) g/dL Hct 36.8 L (40.0-50.0) % Absolute Monocytes 0.75 H (0.11-0.7) k/cumm BUN (7-18) mg/dL Creatinine (0.70-1.30) mg/dL Glucose (70-100) mg/dL Lactate (0.6-1.4) mmol/L Total Protein (6.4-8.2) g/dL Albumin (3.4-5.0) g/dL Urine Ketones (Negative) mg/dL Vital Signs Temperature 36.9 C 06/17/18 15:26 Temperature Source Tympanic 06/17/18 15:26 Pulse 83 06/17/18 15:26 Pulse Rhythm Regular 06/17/18 08:03 Pulse 83 06/16/18 14:20 Respiratory Rate 19 06/17/18 15:26 Respiratory Effort 06/17/18 08:03 Respiratory Depth Normal 06/17/18 08:03 Respiratory Pattern Normal 06/17/18 08:03 Blood Pressure 145/78 H 06/17/18 15:26 Blood Pressure Mean 50 06/16/18 14:16 Blood Pressure Position Sitting 06/16/18 11:17 Pulse Oximetry 95 06/17/18 15:26 Oxygen Delivery Method Room Air 06/17/18 15:26 Oxygen Flow Rate 0 06/17/18 15:26 Pain Level 0 06/16/18 19:40 Intake & Output 06/16/18 06/17/18 06/17/18 23:59 11:59 23:59 Intake Total 2490 / 2490 1215 / 1215 240 / 240 Output Total 600 / 600 800 / 800 800 / 800 Balance 1890 / 1890 415 / 415 -560 / -560 Weight 79.379 kg 75.3 kg Intake: IV 1999 / 1999 975 / 975 Oral 490 / 490 240 / 240 240 / 240 Output: Urine 600 / 600 800 / 800 800 / 800 Other: Urine Color Yellow Yellow Yellow Urine Appearance Clear Clear Clear Urine Odor Normal Normal Voiding Methods Toilet Toilet Toilet Laboratory Results WBC 6.18 k/cumm (4.4-10.8) D 06/17/18 06:15 RBC 3.94 m/cumm (4.50-6.00) L 06/17/18 06:15 Hgb 12.1 g/dL (13.5-17.5) L D 06/17/18 06:15 Hct 36.8 % (40.0-50.0) L 06/17/18 06:15 MCV 93.4 fL (80-95) 06/17/18 06:15 MCH 30.7 pg (27.0-33.0) 06/17/18 06:15 MCHC 32.9 g/dL (32.0-36.0) 06/17/18 06:15 RDW 13.2 % (11.8-14.1) 06/17/18 06:15 Plt Count 162 x1000/uL (130-400) D 06/17/18 06:15 MPV 10.4 fL (8.0-11.0) 06/17/18 06:15 Immature Gran % 0.6 06/17/18 06:15 Neutrophils % 64.0 06/17/18 06:15 Lymphocytes % 21.2 06/17/18 06:15 Monocytes % 12.1 06/17/18 06:15 Eosinophils % 1.9 06/17/18 06:15 Basophils % 0.2 06/17/18 06:15 Absolute Neutrophils 3.96 k/cumm (1.2-6.7) 06/17/18 06:15 Absolute Lymphocytes 1.31 k/cumm (1.2-3.4) 06/17/18 06:15 Absolute Monocytes 0.75 k/cumm (0.11-0.7) H 06/17/18 06:15 Absolute Eosinophils 0.12 k/cumm (0.0-0.7) 06/17/18 06:15 Absolute Basophils 0.01 k/cumm (0.0-0.2) 06/17/18 06:15 Sodium 138 mmol/L (136-145) 06/17/18 06:15 Potassium 4.7 mmol/L (3.5-5.1) 06/17/18 06:15 Chloride 104 mmol/L (98-107) 06/17/18 06:15 Carbon Dioxide 27.8 mmol/L (21.0-32.0) 06/17/18 06:15 Anion Gap 6.2 mmol/L (3-11) 06/17/18 06:15 BUN 26 mg/dL (7-18) H 06/17/18 06:15 Creatinine 1.83 mg/dL (0.70-1.30) H 06/17/18 06:15 Estimated GFR/1.73 m2 36.57 (mL/min/1.73m2) 06/17/18 06:15 Glucose 101 mg/dL (70-100) H 06/17/18 06:15 Lactate 0.9 mmol/L (0.6-1.4) 06/17/18 09:10 Calcium 9.2 mg/dL (8.5-10.1) 06/17/18 06:15 Total Bilirubin 0.5 mg/dL (0.2-1.0) 06/17/18 06:15 AST 20 U/L (15-37) 06/17/18 06:15 ALT 22 U/L (12-78) 06/17/18 06:15 Alkaline Phosphatase 97 U/L (46-116) 06/17/18 06:15 Troponin I < 0.02 ng/mL (0.00-0.06) 06/16/18 20:19 NT-Pro-B Natriuret Pep 307 pg/mL (-299) H 06/16/18 11:25 Total Protein 6.1 g/dL (6.4-8.2) L 06/17/18 06:15 Albumin 2.4 g/dL (3.4-5.0) L 06/17/18 06:15 Urine Color Cancelled 06/16/18 23:17 Urine Clarity Cancelled 06/16/18 23:17 Urine pH Cancelled 06/16/18 23:17 Ur Specific [place] Cancelled 06/16/18 23:17 Urine Protein Cancelled 06/16/18 23:17 Urine Ketones Cancelled 06/16/18 23:17 Urine Blood Cancelled 06/16/18 23:17 Urine Nitrite Cancelled 06/16/18 23:17 Urine Bilirubin Cancelled 06/16/18 23:17 Urine Urobilinogen Cancelled 06/16/18 23:17 Ur Leukocyte Esterase Cancelled 06/16/18 23:17 Urine Glucose Cancelled 06/16/18 23:17
[2018-06-17] MEDS: Enoxaparin 30 MG/0.3 ML SYR SC (17:23)
[2018-06-17] MEDS: Normal Saline Flush 10 ML SYR IVP (17:46)
[2018-06-17] MEDS: Albuterol 2.5 MG/3 ML INH SOLN VIAL UPD (17:52)
[2018-06-17] MEDS: Hyoscyamine 0.125 MG SL/ORAL/CHEW PO (18:33)
[2018-06-17] MEDS: Mylanta Suspension 30 ML CUP PO (18:33)
[2018-06-17] MEDS: Docusate Sodium 100 MG CAP PO (21:13)
[2018-06-17] MEDS: Atorvastatin 20 MG TAB PO (22:07)
[2018-06-18] VITALS (9 sets, daily range): BP systolic 120–141; BP diastolic 54–83; PULSE 62–87; RESP 16–19; TEMP 36.3–37; O2SAT 95–98
[2018-06-18] MEDS: Acetaminophen 325 MG TAB PO ×4 (01:40→22:44)
[2018-06-18] MEDS: Normal Saline 1,000 ML 75 ML IV (06:02)
[2018-06-18 07:01] LABS: Abs Immature Grans 0.01 k/cumm (0.0-0.09); Absolute Eosinophil Count 0.13 k/cumm (0.0-0.7); Absolute Lymphocyte Count 1.11 k/cumm (1.2-3.4); Absolute Monocyte Count 0.41 k/cumm (0.11-0.7); Absolute Neutrophil Count 3.51 k/cumm (1.2-6.7); Eosinophils % 2.5; HCT 33.5 % (40.0-50.0); HGB 11.2 g/dL (13.5-17.5); Immature Grans % 0.2; Lymphocytes % 21.5; Mean Corp. HGB Concentration 33.4 g/dL (32.0-36.0); Mean Corpuscular Hemoglobin 30.9 pg (27.0-33.0); Mean Corpuscular Volume 92.3 fL (80-95); Mean Platelet Volume 10.3 fL (8.0-11.0); Monocytes % 7.9; Neutrophils % 67.9; Platelet Count 154 x1000/uL (130-400); RBC 3.63 m/cumm (4.50-6.00); White Blood Cell Count 5.17 k/cumm (4.4-10.8)
[2018-06-18 07:10] LABS: Anion Gap 8.6 mmol/L (3-11); BUN 21 mg/dL (7-18); CO2 25.4 mmol/L (21.0-32.0); CREATININE 1.25 mg/dL (0.70-1.30); Calcium 8.8 mg/dL (8.5-10.1); Chloride 104 mmol/L (98-107); Estimated GFR 56.78 (mL/min/1.73m2); Glucose 108 mg/dL (70-100); Lipase 253 U/L (73-393); Potassium 3.9 mmol/L (3.5-5.1); Sodium 138 mmol/L (136-145)
[2018-06-18] MEDS: Budesonide/Formoterol 160/4.5 6 GM 60 PUFF INH IH ×2 (08:36→20:58)
[2018-06-18] MEDS: Umeclidinium 7 CAP INHALER 1 CAP IH (08:37)
[2018-06-18] MEDS: Normal Saline Flush 10 ML SYR IVP ×2 (08:54→20:59)
[2018-06-18] MEDS: Pantoprazole 40 MG VIAL IVP ×2 (08:54→20:58)
[2018-06-18] MEDS: Hyoscyamine 0.125 MG SL/ORAL/CHEW PO ×2 (08:54→17:01)
[2018-06-18] MEDS: Potassium Chloride 10 MEQ TABCR PO (08:54)
[2018-06-18] MEDS: Mylanta Suspension 30 ML CUP PO (08:55)
[2018-06-18] MEDS: LEVOFLOXACIN 750 MG/150 ML BAG 150 MG IVPB (08:55)
[2018-06-18] MEDS: Milk of Magnesia 30 ML CUP PO (11:35)
[2018-06-18 11:41] LABS: Amylase 35 U/L (25-115); PHOSPHORUS 2.8 mg/dL (2.6-4.7)
--- NOTE | 2018-06-18 11:51 | PDOC.CMPRO ---
- If Service Date Differs Date of service: 06/18/18 Time of Service: 11:52 Care Management Progress Note S/O: SHANAE met with John in the room completed the financial assistance application and sent it to Nataliya Gilmore. He is concerned that he is paying a large amount of money out of pocket for his inhalers including ADVAIR which is costing him 200.00 a month after his Medicare. CM faxed a referral to [employer] for options to assist with insurance and application for [employer]. John is receiving a fixed income and may qualify for additional insurance to assist with medications. John states he feels better, his abdominal pain is minimal and he feels that his breathing has improved. He is on scheduled PPI and IV antibiotics. CM provided education r/t symptom management of GERD and types of foods to avoid including not eating before bed. John states he enjoys ice cream at night before going to bed. A: John is a 73 year old admitted with pneumonia with a history of COPD and abdominal pain. P: John will return home when medically ready per provider. He will transition to oral antibiotics and discharged on BID PPI. CM sent referral to [facility] [employer] to assist with additional insurance coverage and patient assistance application. John will transport home with his brother via private car at time of discharge.
--- NOTE | 2018-06-18 12:02 | CMPROGNOTE_ITS ---
- If Service Date Differs Date of service: 06/18/18 Time of Service: 11:52 Care Management Progress Note S/O: SHANAE met with John in the room completed the financial assistance application and sent it to Nataliya Gilmore. He is concerned that he is paying a large amount of money out of pocket for his inhalers including ADVAIR which is costing him 200.00 a month after his Medicare. CM faxed a referral to [employer] for options to assist with insurance and application for [employer]. John is receiving a fixed income and may qualify for additional insurance to assist with medications. oJhn states he feels better, his abdominal pain is minimal and he feels that his breathing has improved. He is on scheduled PPI and IV antibiotics. CM provided education r/t symptom management of GERD and types of foods to avoid including not eating before bed. John states he enjoys ice cream at night before going to bed. A: John is a 73 year old admitted with pneumonia with a history of COPD and abdominal pain. P: John will return home when medically ready per provider. He will transition to oral antibiotics and discharged on BID PPI. CM sent referral to [employer] to assist with additional insurance coverage and patient assistance application. John will transport home with his brother via private car at time of discharge.
--- NOTE | 2018-06-18 12:12 | W.PM.PROGNOT ---
Date of Service Date of service: 06/18/18 Time of Service: 12:12 Assessment and Plan (1) Pneumonia involving left lung: Current visit: Yes Status: Acute Improving. Leukocytosis has resolved. He is not hypoxic on room air. He is on Levofloxacin day #3, transition to oral today. Continue PRN nebulizer treatments. (2) Abdominal pain: Current visit: Yes Status: Acute Improving with increased PPI dose. CT with stable AAA. Patient also with a prior history of IBS, but cannot perform CT with contrast to rule out potential mesenteric ischemia given history of Global Vascular Disease, but symptoms are not related to eating. Amylase, lipase and phosphorus all normal. Seems to be improving with increased PPI dose. Plan to heme test stools. Reassess hgb and hct in the morning. (3) AAA (abdominal aortic aneurysm): Current visit: Yes Status: None 4.9 cm aortic aneurysm by ultrasound 12/05/2015, confirmed stable by CT as above. (4) IBS (irritable bowel syndrome): Current visit: Yes Status: None Possible cause of abdominal pain. Continue to monitor. (5) ASCVD (arteriosclerotic cardiovascular disease): Current visit: No Status: Chronic With history of prior stent placement. Restart aspirin, metoprolol and lisinopril. Continue statin. (6) ROGER (acute kidney injury): Current visit: Yes Status: Acute Renal function improved today. Continue to monitor. (7) DVT prophylaxis: Current visit: Yes Status: Acute Subcutaneous lovenox. (8) Discharge planning issues: Current visit: Yes Status: Acute He is a full code. This case was discussed with Dr. Lancaster who is in agreement. Subjective Interval history since last seen: John Segal is a 73-year-old man with a prior history of Global Vascular disease with AAA, PVD, and CAD s/p stents, as well as IBS, COPD, and CKD III admitted on 06/16 from [facility] emergency department with a diagnosis of Pneumonia. At the time of his presentation, he reported abdominal pain and vomiting. Workup to date has been negative including a noncontrast abdominal CT scan that showed a stable 4.5 cm infrarenal AAA without other acute abnormalities. Lipase was normal. His PPI was increased. Today he reports improvement in his abdominal pain. His pain is now a 2/10. The pain is primarily epigastric and LUQ. He has not had a bowel movement in a few days. He is passing flatus. He continues to have some shortness of breath with activity, none at rest. His cough has improved, it is nonproductive and less frequent. He denies wheezing. No chest pain, he is eating and drinking without nausea or vomiting. He verbalizes no other concerns. Exam Narrative Exam Narrative: General: Pleasant and cooperative, he is alert and oriented X3, in no acute distress, sitting up in the chair. Neck: Supple, no JVD. Cardiovascular: Regular, nontachycardic, S1S2, No rubs, murmurs, or gallops. Pulmonary: Lung sounds diminished on the left, no rales, rhonchi or wheezing. Abdomen: Normoactive bowel sounds, soft, nondistended, mild tenderness on palpation of epigastric region and LUQ. Extremities: No clubbing, cyanosis or edema. Psych: Normal mood and affect. Objective Objective Clinical Data: Abnormal lab results 06/18/18 06/18/18 Range/Units 06:20 06:20 RBC 3.63 L (4.50-6.00) m/cumm Hgb 11.2 L (13.5-17.5) g/dL Hct 33.5 L (40.0-50.0) % Absolute Lymphocytes 1.11 L (1.2-3.4) k/cumm BUN 21 H (7-18) mg/dL Glucose 108 H (70-100) mg/dL Vital Signs Temperature 36.8 C 06/18/18 11:44 Temperature Source Tympanic 06/18/18 11:44 Pulse 81 06/18/18 11:44 Pulse Rhythm Regular 06/18/18 01:48 Pulse 83 06/16/18 14:20 Respiratory Rate 18 06/18/18 11:44 Respiratory Effort 06/18/18 01:48 Respiratory Depth Shallow 06/18/18 01:48 Respiratory Pattern Normal 06/18/18 01:48 Blood Pressure 141/83 H 06/18/18 11:44 Blood Pressure Mean 50 06/16/18 14:16 Blood Pressure Position Sitting 06/16/18 11:17 Pulse Oximetry 96 06/18/18 11:44 Oxygen Delivery Method Room Air 06/18/18 11:44 Oxygen Flow Rate 0 06/18/18 11:44 Pain Level 2 06/18/18 11:44 Comment 06/18/18 04:05 Intake & Output 06/17/18 06/18/18 06/18/18 23:59 11:59 23:59 Intake Total 1600 / 1600 433.75 / 433.75 Output Total 1000 / 1000 1100 / 1100 Balance 600 / 600 -666.25 / -666.25 Weight 76.3 kg Intake: IV 1000 / 1000 433.75 / 433.75 Oral 600 / 600 Output: Urine 1000 / 1000 1100 / 1100 Other: Urine Color Yellow Yellow Urine Appearance Clear Clear Urine Odor Normal None Voiding Methods Toilet Toilet Laboratory Results WBC 5.17 k/cumm (4.4-10.8) 06/18/18 06:20 RBC 3.63 m/cumm (4.50-6.00) L 06/18/18 06:20 Hgb 11.2 g/dL (13.5-17.5) L 06/18/18 06:20 Hct 33.5 % (40.0-50.0) L 06/18/18 06:20 MCV 92.3 fL (80-95) 06/18/18 06:20 MCH 30.9 pg (27.0-33.0) 06/18/18 06:20 MCHC 33.4 g/dL (32.0-36.0) 06/18/18 06:20 RDW 13.0 % (11.8-14.1) 06/18/18 06:20 Plt Count 154 x1000/uL (130-400) 06/18/18 06:20 MPV 10.3 fL (8.0-11.0) 06/18/18 06:20 Immature Gran % 0.2 06/18/18 06:20 Neutrophils % 67.9 06/18/18 06:20 Lymphocytes % 21.5 06/18/18 06:20 Monocytes % 7.9 06/18/18 06:20 Eosinophils % 2.5 06/18/18 06:20 Basophils % 0.0 06/18/18 06:20 Absolute Neutrophils 3.51 k/cumm (1.2-6.7) 06/18/18 06:20 Absolute Lymphocytes 1.11 k/cumm (1.2-3.4) L 06/18/18 06:20 Absolute Monocytes 0.41 k/cumm (0.11-0.7) 06/18/18 06:20 Absolute Eosinophils 0.13 k/cumm (0.0-0.7) 06/18/18 06:20 Absolute Basophils 0.00 k/cumm (0.0-0.2) 06/18/18 06:20 Sodium 138 mmol/L (136-145) 06/18/18 06:20 Potassium 3.9 mmol/L (3.5-5.1) 06/18/18 06:20 Chloride 104 mmol/L (98-107) 06/18/18 06:20 Carbon Dioxide 25.4 mmol/L (21.0-32.0) 06/18/18 06:20 Anion Gap 8.6 mmol/L (3-11) 06/18/18 06:20 BUN 21 mg/dL (7-18) H 06/18/18 06:20 Creatinine 1.25 mg/dL (0.70-1.30) D 06/18/18 06:20 Estimated GFR/1.73 m2 56.78 (mL/min/1.73m2) 06/18/18 06:20 Glucose 108 mg/dL (70-100) H 06/18/18 06:20 Lactate 0.9 mmol/L (0.6-1.4) 06/17/18 09:10 Calcium 8.8 mg/dL (8.5-10.1) 06/18/18 06:20 Phosphorus 2.8 mg/dL (2.6-4.7) 06/18/18 06:20 Total Bilirubin 0.5 mg/dL (0.2-1.0) 06/17/18 06:15 AST 20 U/L (15-37) 06/17/18 06:15 ALT 22 U/L (12-78) 06/17/18 06:15 Alkaline Phosphatase 97 U/L (46-116) 06/17/18 06:15 Troponin I < 0.02 ng/mL (0.00-0.06) 06/16/18 20:19 NT-Pro-B Natriuret Pep 307 pg/mL (-299) H 06/16/18 11:25 Total Protein 6.1 g/dL (6.4-8.2) L 06/17/18 06:15 Albumin 2.4 g/dL (3.4-5.0) L 06/17/18 06:15 Amylase 35 U/L (25-115) 06/18/18 06:20 Lipase 253 U/L (73-393) 06/18/18 06:20 Urine Color Cancelled 06/16/18 23:17 Urine Clarity Cancelled 06/16/18 23:17 Urine pH Cancelled 06/16/18 23:17 Ur Specific [place] Cancelled 06/16/18 23:17 Urine Protein Cancelled 06/16/18 23:17 Urine Ketones Cancelled 06/16/18 23:17 Urine Blood Cancelled 06/16/18 23:17 Urine Nitrite Cancelled 06/16/18 23:17 Urine Bilirubin Cancelled 06/16/18 23:17 Urine Urobilinogen Cancelled 06/16/18 23:17 Ur Leukocyte Esterase Cancelled 06/16/18 23:17 Urine Glucose Cancelled 06/16/18 23:17
[2018-06-18 12:17] LABS: Iron 49 ug/dL (50-175); Total Iron Binding Capacity 213 ug/dL (250-450); Transferrin Sat 23 % (20-55)
[2018-06-18 13:09] LABS: Ferritin 550 ng/mL (8-388)
[2018-06-18] MEDS: Enoxaparin 30 MG/0.3 ML SYR SC (17:02)
[2018-06-18] MEDS: Atorvastatin 20 MG TAB PO (21:00)
[2018-06-19 03:48] VITALS: BP 150/76; PULSE 57; RESP 17; TEMP 36.3; O2SAT 96
[2018-06-19] MEDS: Acetaminophen 325 MG TAB PO (05:10)
[2018-06-19 07:20] LABS: Abs Immature Grans 0.01 k/cumm (0.0-0.09); Absolute Eosinophil Count 0.16 k/cumm (0.0-0.7); Absolute Lymphocyte Count 1.31 k/cumm (1.2-3.4); Absolute Monocyte Count 0.53 k/cumm (0.11-0.7); Absolute Neutrophil Count 4.91 k/cumm (1.2-6.7); Anion Gap 6.9 mmol/L (3-11); BUN 18 mg/dL (7-18); CO2 27.1 mmol/L (21.0-32.0); CREATININE 1.19 mg/dL (0.70-1.30); Calcium 9.6 mg/dL (8.5-10.1); Chloride 102 mmol/L (98-107); Eosinophils % 2.3; Glucose 96 mg/dL (70-100); HCT 37.6 % (40.0-50.0); HGB 12.4 g/dL (13.5-17.5); Immature Grans % 0.1; Lymphocytes % 18.9; Mean Corpuscular Hemoglobin 30.5 pg (27.0-33.0); Mean Corpuscular Volume 92.4 fL (80-95); Mean Platelet Volume 10.5 fL (8.0-11.0); Monocytes % 7.7; Platelet Count 184 x1000/uL (130-400); Potassium 4.1 mmol/L (3.5-5.1); RBC 4.07 m/cumm (4.50-6.00); RBC Distribution Width 13.1 % (11.8-14.1); Sodium 136 mmol/L (136-145); White Blood Cell Count 6.92 k/cumm (4.4-10.8)
[2018-06-19] MEDS: Normal Saline Flush 10 ML SYR IVP (07:41)
[2018-06-19] MEDS: Metoprolol CR 100 MG TABCR PO (07:42)
[2018-06-19] MEDS: Lisinopril 20 MG TAB PO (07:42)
[2018-06-19] MEDS: Aspirin E.C. 81 MG TABEC PO (07:42)
[2018-06-19 07:45] VITALS: BP 147/81; PULSE 62; RESP 18; TEMP 36.6; O2SAT 96
[2018-06-19] MEDS: Pantoprazole 40 MG VIAL IVP (07:47)
[2018-06-19 07:55] VITALS: O2SAT 95
[2018-06-19] MEDS: Umeclidinium 7 CAP INHALER 1 CAP IH (07:57)
[2018-06-19] MEDS: Budesonide/Formoterol 160/4.5 6 GM 60 PUFF INH IH (07:58)
[2018-06-19] MEDS: LEVOFLOXACIN 750 MG/150 ML BAG 150 MG IVPB (09:57)
--- NOTE | 2018-06-19 10:34 | DSE_ITS ---
Date of service: 06/19/18 Time of Service: 10:32 DS: Diagnosis Discharge Diagnosis (1) Pneumonia involving left lung: Status: Acute (2) Abdominal pain: Status: Acute (3) AAA (abdominal aortic aneurysm): Status: None (4) IBS (irritable bowel syndrome): Status: None (5) ASCVD (arteriosclerotic cardiovascular disease): Status: Chronic (6) ROGER (acute kidney injury): Status: Acute Discharge Plan Disposition Patient Disposition: HOME Condition: Improving Discharge Details Reason For Visit: PNEUMONIA Admit Date/Time: 06/16/18 13:54 Admit Provider: Boaz Ohara Attending Provider: Boaz Ohara Primary Care Provider: RexFidelina tsai Hospital Course Hospital Course: Mr. Segal is a 73-year-old male with a past medical history of stable AAA, ASCVD with history of [place] and stent placement, COPD, GERD, Nava's esophagus, IBS, HTN, and chronic kidney disease. He presented to the ED on 06/16/18 with a 2-week history of diffuse abdominal pain and vomiting. In the ED, he had a noncontrast abdominal CT scan which showed a stable 4.5 cm infrarenal abdominal aortic aneurysm, no acute process. Chest x-ray revealed a Left upper lobe opacity suspicious for pneumonia. He also reported a cough and some shortness of breath with activity. A follow up x-ray was recommended to document complete resolution of the left upper lobe infiltrate. This can be done as an outpatient when he has completed his course of antibiotics. He was admitted to the [facility] floor and started on antibiotics including IV Levaquin. He improved from a respiratory standpoint. He did continue to have some abdominal pain, so his PPI was increased to twice daily dosing and his abdominal pain almost completely resolved. The abdominal pain is likely due to GERD versus gastritis. He did have a dip in his hemoglobin and hematocrit while on IV fluids, however, his hemoglobin and hematocrit are stable on the day of discharge. He did have a bowel movement but nursing was unable to collect a sample for heme testing. Heme testing could be completed as an outpatient if there is ongoing concern for blood loss. He will be discharged home on twice daily dosing of a PPI. He will complete a 7 -day course of Levaquin. He will follow-up with his primary care provider as scheduled on 06/24/2018 at 1300. Home Meds and New Rx's Prescriptions: New levofloxacin 750 mg tablet 750 mg PO DAILY Qty: 3 RF: 0 omeprazole 40 mg capsule,delayed release(DR/EC) 40 mg PO BID Qty: 30 RF: 0 Continue aspirin [Aspir-81] 81 MG tablet,delayed release (DR/EC) 81 mg PO DAILY RF: 0 hyoscyamine sulfate [Levsin] 0.125 MG tablet 0.125 - 0.25 mg PO Q4H PRN Qty: 100 RF: 6 fluticasone-salmeterol [Advair Diskus] 1 EACH blister with device 1 ea Inhalation BID Qty: 3 RF: 3 albuterol sulfate [ProAir HFA] 8.5 GM HFA aerosol inhaler 1 - 2 puff Inhalation Q4-6H PRN Qty: 3 RF: 3 nitroglycerin [Nitrostat] 0.4 MG tablet, sublingual 0.4 mg Sublingual PRN Qty: 25 RF: 3 umeclidinium [Incruse Ellipta] 62.5 MCG blister with device 62.5 mcg Inhalation DAILY Qty: 3 RF: 3 lisinopril 20 MG tablet 20 mg PO DAILY Qty: 90 RF: 3 metoprolol succinate 100 MG tablet extended release 24 hr 100 mg PO DAILY Qty: 90 RF: 3 loratadine 10 MG tablet 10 mg PO DAILY Qty: 90 RF: 3 hydrochlorothiazide 12.5 MG tablet 12.5 mg PO DAILY Qty: 90 RF: 3 Atorvastatin Calcium 20 MG tablet 20 mg PO DAILY Qty: 90 RF: 3 Discontinued dexlansoprazole [Dexilant] 30 MG capsule,biphase delayed releas 30 mg PO DAILY Qty: 90 RF: 3 Discharge Instructions Instructions: Gastroesophageal Reflux Disease (DC), Community Acquired Pneumonia (DC) Additional Instructions: Take Levaquin (antibiotics) until they are gone, 3 more days. Take the omeprazole twice daily (morning and night). Follow up with your PCP as scheduled. Take care! Activity:: Activity as Tolerated Equipment/Supplies:: No Equipment Needed Diet:: As Tolerated Discharge Orders Discharge Orders: Discharge Order (Routine); Ordered 06/19/18 Ordered By: Judith Chen Exam Narrative Exam Narrative: General: Pleasant and cooperative, he is alert and oriented X3, in no acute distress, sitting up in the chair. Neck: Supple, no JVD. Cardiovascular: Regular, nontachycardic, S1S2, No rubs, murmurs, or gallops. Pulmonary: Lung sounds diminished on the left, no rales, rhonchi or wheezing. Abdomen: Normoactive bowel sounds, soft, nondistended, minimal tenderness on palpation of the LUQ. Extremities: No clubbing, cyanosis or edema. Psych: Normal mood and affect. DS: Data Vitals/I&O Vitals and I&O: Vital Signs Temperature 36.6 C 06/19/18 07:45 Temperature Source Tympanic 06/19/18 07:45 Pulse 62 06/19/18 07:45 Pulse Rhythm Regular 06/19/18 08:00 Pulse 83 06/16/18 14:20 Respiratory Rate 18 06/19/18 07:45 Respiratory Effort Non-Labored 06/19/18 08:00 Respiratory Depth Normal 06/19/18 08:00 Respiratory Pattern Normal 06/19/18 08:00 Blood Pressure 147/81 H 06/19/18 07:45 Blood Pressure Mean 50 06/16/18 14:16 Blood Pressure Position Sitting 06/16/18 11:17 Pulse Oximetry 96 06/19/18 07:45 Oxygen Delivery Method Room Air 06/19/18 07:45 Oxygen Flow Rate 0 06/19/18 07:45 Pain Level 2 06/19/18 07:45 Comment 06/18/18 04:05 Intake & Output 06/18/18 06/18/18 06/19/18 11:59 23:59 11:59 Intake Total 823.75 / 823.75 993.75 / 993.75 400 / 400 Output Total 1400 / 1400 400 / 400 1500 / 1500 Balance -576.25 / -576.25 593.75 / 593.75 -1100 / -1100 Weight 76.3 kg 74.2 kg Intake: IV 583.75 / 583.75 433.75 / 433.75 Oral 240 / 240 560 / 560 400 / 400 Output: Urine 1400 / 1400 400 / 400 1500 / 1500 Other: Urine Color Yellow Yellow Yellow Urine Appearance Clear Clear Clear Urine Odor None Normal None Comment Void x1 in the toilet. Stool Characteristics Liquid Voiding Methods Toilet Toilet Toilet Completed studies during hospitalization [Text1]: 06/16/18: CT SCAN OF THE ABDOMEN AND PELVIS: A noncontrast CT scan of the abdomen and pelvis was performed due to the patient 's decreased renal function. Emphysematous changes are seen in the lung bases. Lack of IV contrast does limit evaluation of the abdominal and pelvic organs. There is patient motion artifact, which does limit the examination. The unenhanced visualized portions of the liver, spleen, pancreas, gallbladder and adrenal glands are unremarkable. The kidneys show no evidence of nephrolithiasis or hydronephrosis. The urinary bladder is intact. The reproductive organs are grossly unremarkable. There is atherosclerosis of the abdominal aorta and an infrarenal abdominal aortic aneurysm. Maximum diameter is 4.5 cm. This compares with the ultrasound from 12/05/15, at which time it was measured at 4.9 cm. The bowel shows no evidence of obstruction or inflammation. There is diverticulosis of the colon but no evidence of acute diverticulitis. No evidence of an acute appendix is present. No abdominal or pelvic ascites, adenopathy or pneumoperitoneum is present. Degenerative changes are seen in the spine. IMPRESSION: 1. Stable 4.5 cm infrarenal abdominal aortic aneurysm. 2. No evidence of an acute abdomen. CHEST X-RAY: Comparison is 12/05/15. Comparison x-ray of the left shoulder is 08/25/16. The heart size and pulmonary vasculature are stable and within normal limits. There is an opacity seen in the left upper lobe, not present on prior examinations. The lungs are otherwise clear. There are degenerative changes seen in the spine. Old right rib fractures are seen. IMPRESSION: Left upper lobe opacity suspicious for pneumonia. A follow-up chest x-ray is recommended in this patient to document complete resolution of the left upper lobe infiltrate. Labs on day of discharge: Labs from last 24 hours 06/19/18 06/19/18 06/18/18 06:27 06:27 11:15 WBC 6.92 D RBC 4.07 L Hgb 12.4 L Hct 37.6 L MCV 92.4 MCH 30.5 MCHC 33.0 RDW 13.1 Plt Count 184 MPV 10.5 Immature Gran % 0.1 Neutrophils % 71.0 Lymphocytes % 18.9 Monocytes % 7.7 Eosinophils % 2.3 Basophils % 0.0 Absolute Neutrophils 4.91 Absolute Lymphocytes 1.31 Absolute Monocytes 0.53 Absolute Eosinophils 0.16 Absolute Basophils 0.00 Sodium 136 Potassium 4.1 Chloride 102 Carbon Dioxide 27.1 Anion Gap 6.9 BUN 18 Creatinine 1.19 Estimated GFR/1.73 m2 >= 60.00 Glucose 96 Calcium 9.6 Phosphorus Iron TIBC Transferrin % Sat Ferritin 550 H Amylase 06/18/18 06/18/18 11:15 06:20 WBC RBC Hgb Hct MCV MCH MCHC RDW Plt Count MPV Immature Gran % Neutrophils % Lymphocytes % Monocytes % Eosinophils % Basophils % Absolute Neutrophils Absolute Lymphocytes Absolute Monocytes Absolute Eosinophils Absolute Basophils Sodium Potassium Chloride Carbon Dioxide Anion Gap BUN Creatinine Estimated GFR/1.73 m2 Glucose Calcium Phosphorus 2.8 Iron 49 L TIBC 213 L Transferrin % Sat 23 Ferritin Amylase 35 PFSH Family History Mother No problems noted. Father Myocardial infarction Medical History AAA (abdominal aortic aneurysm) ASCVD (arteriosclerotic cardiovascular disease) Headache HLD (hyperlipidemia) COPD (chronic obstructive pulmonary disease) GERD (gastroesophageal reflux disease) HTN (hypertension) IBS (irritable bowel syndrome) ASCVD (arteriosclerotic cardiovascular disease) (Chronic 03/04/13) Essential hypertension (Chronic 03/04/13) PVD (peripheral vascular disease) (Chronic 04/08/15) Hyperlipidemia, unspecified (Chronic 03/04/13) Gastroesophageal reflux disease (Chronic 10/02/11) Chronic obstructive pulmonary disease (COPD) (Chronic 10/02/11) Chronic kidney disease (CKD), stage III (moderate) (Chronic 09/23/13) 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) Anxiety (Chronic 10/02/11) Abdominal aortic aneurysm (AAA) (Chronic 10/02/11) Hypercalcemia (Resolved 07/19/16) Social History Smoking/Tobacco Use Status: Former Tobacco Use Surgical History Coronary Stent (08/05/06) Repair of inguinal hernia Trigger Finger release (05/06/16)
[2018-06-19 11:40] VITALS: BP 118/81; PULSE 64; RESP 18; TEMP 36.8; O2SAT 96
--- NOTE | 2018-06-19 11:41 | PDOC.CMDIS ---
- If Service Date Differs Date of service: 06/19/18 Time of Service: 11:41 LACE Index Scoring Tool - Questions: Length of Stay (in days): 4 - 6 Acuity (Admit via E.D.?): Yes Comorbidities: Chronic Pulmonary Disease E.D. Visits: 2 - Answers: Total Score: 11 Risk of Readmission: High Risk Care Management Discharge Reason for Hospitalization: Pneumonia Discharge Plan: John will be discharged home today with antibiotics and follow up with his primary care. CM reviewed the importance of completing antibioitcs and PPI twice a day to relieve symptoms of GERD. He reports he feels better and is ready to return home. CM compelted and sent Pt finanical assitance application to patient accounts, Pt will need to suppy taxes and statement of his SSI to the business office. John will be transported home via private car with his brother at time of discharge. CM did fax a referral to vocational rehabilitation counselor on aging follow-up options counseling. Patient/Family Education Needs: Education, limitations, follow-up plan of care, ask me 3 and self-management discussion.
--- NOTE | 2018-06-19 11:45 | CMDISCH_ITS ---
- If Service Date Differs Date of service: 06/19/18 Time of Service: 11:41 LACE Index Scoring Tool - Questions: Length of Stay (in days): 4 - 6 Acuity (Admit via E.D.?): Yes Comorbidities: Chronic Pulmonary Disease E.D. Visits: 2 - Answers: Total Score: 11 Risk of Readmission: High Risk Care Management Discharge Reason for Hospitalization: Pneumonia Discharge Plan: John will be discharged home today with antibiotics and follow up with his primary care. CM reviewed the importance of completing antibioitcs and PPI twice a day to relieve symptoms of GERD. He reports he feels better and is ready to return home. CM compelted and sent Pt finanical assitance application to patient accounts, Pt will need to suppy taxes and statement of his SSI to the business office. John will be transported home via private car with his brother at time of discharge. CM did fax a referral to area counselor on aging follow-up options counseling. Patient/Family Education Needs: Education, limitations, follow-up plan of care, ask me 3 and self-management discussion.
--- NOTE | 2018-06-21 20:44 | ED.GENADUL_ITS ---
Discharge Plan Disposition Condition: Improving Discharge Details Chief Complaint: Abd Prob Reason For Visit: PNEUMONIA Admit Date/Time: 06/16/18 13:54 Admit Provider: Boaz Ohara Attending Provider: Boaz Ohara Primary Care Provider: Fidelina Goodman ED Provider: Stefanie Gutierrez Discharge Instructions Activity:: Activity as Tolerated Equipment/Supplies:: No Equipment Needed Diet:: As Tolerated Discharge Orders Discharge Orders: Discharge Order (Routine); Ordered 06/19/18 Ordered By: Judith Chen Discharge Data Discharge Date/Time-TO BE ENTERED AT DEPARTURE: 06/16/18 14:27 Medical Decision Making Angelita Segal is a 73 y/o man with h/o multiple medical problems presenting to the emergency department with 2 weeks of abdominal pain, unchanged over that time, several episodes of vomiting. Also notes SOB and cough. On exam Pt is non- toxic appearing, mild diffuse abd TTP without peritoneal signs. Concern for gasritis vs pancreatitis vs IBS vs UTI vs PNA vs metabolic/lyte derangement vs CHF vs other. Given time course doubt acute aortic process, appy, mesenteric ischemia. Doubt ACS. Plan for EKG, CXR, screening labs, IVF hydration. Likely w/ o contrast given CKD. Poor GFR. Considered risks/benefits of CTA, CT a/p with contrast, and given 2 week time course without change in abd pain, will hold contrast and perform CT w /o. CT okay. CXR shows PNA. Will treat for CAP and admit. Pt initially wanted to leave AMA, but reconsidered and agrees to stay. Clinical Impession: PNA Disposition: [facility] inpatient Medical Records Medical records reviewed: Yes I reviewed the patient's medical records. Imaging Data Radiologic Study: Attestation: I personally reviewed and interpreted this imaging study as follows: Radiologist's impression: CHEST X-RAY: Comparison is 12/05/15. Comparison x-ray of the left shoulder is 08/25/16. The heart size and pulmonary vasculature are stable and within normal limits. There is an opacity seen in the left upper lobe, not present on prior examinations. The lungs are otherwise clear. There are degenerative changes seen in the spine. Old right rib fractures are seen. IMPRESSION: Left upper lobe opacity suspicious for pneumonia. A follow-up chest x-ray is recommended in this patient to document complete resolution of the left upper lobe infiltrate. Patient Name: ANGELITA SEGAL #: [id number]: MS Ordering Provider: Stefanie Gutierrez M.D. : ADM IN Primary Care Provider: Fidelina Goodman NPDate of Exam: 06/16/18ex: M : 1945ge: [id number] Exam(s) a CT:CT abdomen & pelvis wo SYMPTOMS/DIAGNOSIS: ABDOMINAL PAIN CT SCAN OF THE ABDOMEN AND PELVIS: A noncontrast CT scan of the abdomen and pelvis was performed due to the patient 's decreased renal function. Emphysematous changes are seen in the lung bases. Lack of IV contrast does limit evaluation of the abdominal and pelvic organs. There is patient motion artifact, which does limit the examination. The unenhanced visualized portions of the liver, spleen, pancreas, gallbladder and adrenal glands are unremarkable. The kidneys show no evidence of nephrolithiasis or hydronephrosis. The urinary bladder is intact. The reproductive organs are grossly unremarkable. There is atherosclerosis of the abdominal aorta and an infrarenal abdominal aortic aneurysm. Maximum diameter is 4.5 cm. This compares with the ultrasound from 12/05/15, at which time it was measured at 4.9 cm. The bowel shows no evidence of obstruction or inflammation. There is diverticulosis of the colon but no evidence of acute diverticulitis. No evidence of an acute appendix is present. No abdominal or pelvic ascites, adenopathy or pneumoperitoneum is present. Degenerative changes are seen in the spine. IMPRESSION: 1. Stable 4.5 cm infrarenal abdominal aortic aneurysm. 2. No evidence of an acute abdomen. Lab Data Lab results reviewed: Yes I reviewed the patient's lab results. ECG Data Attestation: I personally reviewed and interpreted this ECG (s) as follows: Interpretation: EKG shows normal sinus rhythm at 78 with normal axis, diffuse ST changes with similar morphology seen on prior, no STEMI. HPI General Date/Time Provider Initiated Documentation: 06/16/18 11:26 . Limitations to Documentation: no limitations . Information obtained by: patient, RN notes reviewed and old records reviewed . HPI Narrative: Angelita Segal is a 73-year-old man with h/o COPD, HLD, AAA, HTN , IBS, CKD, CAD presenting to the emergency department with 2 weeks of abdominal pain. Pt reports that pain is per-umbilical, non-radiating, and unchanged since onset. Pain is dull and constant. Pt was sent here for further eval by PCP's office. He reports that he feels essentially at baseline, but pain is nagging. Has continued to eat and drink normally. He denies any other pain, fever, d/c, weakness, n/t, lightheadedness. He reports that he has had a few episodes of non-bilious non-bloody emesis and cough over the past few days, also has been mildly SOB. Abdominal worse with movement and improved with rest, no other modifiers. No recent travel. No other recent illness. Not hospitalized in the past few months. Related Data Home Medications Medication Instructions Recorded Confirmed aspirin [Aspir-81] 81 mg PO DAILY tab-cap 12/12/15 06/23/18 fluticasone-salmeterol [Advair 1 ea INHALATION BID #3 inhaler 08/12/17 06/23/18 Diskus] albuterol sulfate [ProAir HFA] 1 - 2 puff INHALATION Q4-6H PRN #3 09/06/1706/23 inhaler nitroglycerin [Nitrostat] 0.4 mg SUBLINGUAL PRN #25 tab 11/26/17 06/23/18 umeclidinium [Incruse Ellipta] 62.5 mcg INHALATION DAILY #3 11/26/17 06/23/18 inhaler hydrochlorothiazide 12.5 mg PO DAILY #90 tab-cap 12/19/17 06/23/18 lisinopril 20 mg PO DAILY #90 tab 12/19/17 06/23/18 loratadine 10 mg PO DAILY #90 tab-cap 12/19/17 06/23/18 metoprolol succinate 100 mg PO DAILY #90 tab 12/19/17 06/23/18 omeprazole 40 mg PO BID #30 cap 06/19/18 06/23/18 sennosides 8.6 mg tablet 8.6 mg PO BID PRN #20 tab 06/23/18 06/23/18 Previous Rx's Medication Instructions Recorded fluticasone-salmeterol [Advair 1 ea INHALATION BID #3 inhaler 08/12/17 Diskus] albuterol sulfate [ProAir HFA] 1 - 2 puff INHALATION Q4-6H PRN #3 09/06/17 inhaler nitroglycerin [Nitrostat] 0.4 mg SUBLINGUAL PRN #25 tab 11/26/17 umeclidinium [Incruse Ellipta] 62.5 mcg INHALATION DAILY #3 11/26/17 inhaler hydrochlorothiazide 12.5 mg PO DAILY #90 tab-cap 12/19/17 lisinopril 20 mg PO DAILY #90 tab 12/19/17 loratadine 10 mg PO DAILY #90 tab-cap 12/19/17 metoprolol succinate 100 mg PO DAILY #90 tab 12/19/17 omeprazole 40 mg PO BID #30 cap 06/19/18 sennosides 8.6 mg tablet 8.6 mg PO BID PRN #20 tab 06/23/18 Allergies Allergy/AdvReac Type Severity Reaction Status Date / Time benazepril Allergy Mild unknown Unverified 06/23/18 14:10 ezetimibe Allergy Mild NO Unverified 06/23/18 14:10 REACTION NOTED pravastatin Allergy Mild NO Unverified 06/23/18 14:10 REACTION NOTED erythromycin base AdvReac Mild GI SYMPTOMS Unverified 06/23/18 14:10 fenofibrate AdvReac Mild ABDOMINAL Unverified 06/23/18 14:10 PAIN niacin AdvReac Mild FLUSHING Unverified 06/23/18 14:10 REDNESS nortriptyline AdvReac Mild NAUSEA Unverified 06/23/18 14:10 omeprazole AdvReac Mild BACK PAIN Unverified 06/23/18 14:10 General Stated Complaint: Abd Prob LUIS: 2 Review of Systems Review of Systems Constitutional: denies fevers Eyes: denies eye pain ENT: denies facial pain, dental pain, sore throat Cardiovascular: denies chest pain, edema Respiratory: reports SOB, cough GI: reports abdominal pain, vomiting, denies diarrhea : denies flank pain MSK: denies back pain, neck pain, arthralgias, myalgias Skin: denies rash Neuro: denies headaches, lightheadedness, weakness PFSH Family History Mother No problems noted. Father Myocardial infarction Medical History AAA (abdominal aortic aneurysm) ASCVD (arteriosclerotic cardiovascular disease) Headache HLD (hyperlipidemia) COPD (chronic obstructive pulmonary disease) GERD (gastroesophageal reflux disease) HTN (hypertension) IBS (irritable bowel syndrome) ASCVD (arteriosclerotic cardiovascular disease) (Chronic 03/04/13) Essential hypertension (Chronic 03/04/13) PVD (peripheral vascular disease) (Chronic 04/08/15) Hyperlipidemia, unspecified (Chronic 03/04/13) Gastroesophageal reflux disease (Chronic 10/02/11) Chronic obstructive pulmonary disease (COPD) (Chronic 10/02/11) Chronic kidney disease (CKD), stage III (moderate) (Chronic 09/23/13) 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) Anxiety (Chronic 10/02/11) Abdominal aortic aneurysm (AAA) (Chronic 10/02/11) Hypercalcemia (Resolved 07/19/16) Social History Smoking/Tobacco Use Status: Former Tobacco Use Surgical History Coronary Stent (08/05/06) Repair of inguinal hernia Trigger Finger release (05/06/16) Exam Narrative Exam Narrative: Constitutional: [id number], pleasant, conversing normally HENT: head atraumatic, normocephalic normal inspection, mucous membranes moist Eyes: conjunctiva normal, sclera normal, pupils 3mm b/l Neck: no stridor, normal ROM, trachea midline Chest: normal inspection Resp: normal work of breathing, LCTAB Cardio: normal rate, normal rhythm, no murmur appreciated GI: abdomen soft, non-distended, mild generalized TTP without peritoneal signs, neg McBpt TTP, neg murphys, no mass Back: normal inspection, no rash Skin: warm, dry, normal color, no rash Neuro: alert, not altered, grossly non-focal, normal tone Ext: no edema Psych: normal mood, normal affect, normal behavior Course Vital Signs Temperature 36.3 C L 06/16/18 11:17 Pulse 78 06/16/18 11:17 Respiratory Rate 20 06/16/18 11:17 Blood Pressure 102/51 L 06/16/18 11:17 Pulse Oximetry 98 06/16/18 11:17 Temperature 37 C 06/16/18 12:27 Temperature Source Temporal Artery Scan 06/16/18 12:27 Pulse 80 06/16/18 12:27 Respiratory Rate 14 06/16/18 12:27 Respiratory Effort Non-Labored 06/16/18 11:25 Blood Pressure 93/52 L 06/16/18 12:27 Blood Pressure Position Sitting 06/16/18 11:17 Pulse Oximetry 97 06/16/18 12:27 Oxygen Delivery Method Room Air 06/16/18 12:27 Oxygen Flow Rate 0 06/16/18 12:27 Pain Level 10 06/16/18 12:27 Lab/Test Results Lab/Test Results: 06/16/18 11:30 Nasopharynx Influenza Types A,B Antigen - Final Laboratory Tests Range/Units 06/16/18 06/16/18 06/16/18 11:25 11:25 11:25 WBC (4.4-10.8) k/cumm 13.73 H RBC (4.50-6.00) m/cumm 4.77 Hgb (13.5-17.5) g/dL 14.6 Hct (40.0-50.0) % 44.3 MCV (80-95) fL 92.9 MCH (27.0-33.0) pg 30.6 MCHC (32.0-36.0) g/dL 33.0 RDW (11.8-14.1) % 13.6 Plt Count (130-400) x1000/uL 268 MPV (8.0-11.0) fL 10.7 Immature Gran % 0.7 Neutrophils % 74.1 Lymphocytes % 14.6 Monocytes % 9.8 Eosinophils % 0.7 Basophils % 0.1 Absolute Neutrophils (1.2-6.7) k/cumm 10.17 H Absolute Lymphocytes (1.2-3.4) k/cumm 2.00 Absolute Monocytes (0.11-0.7) k/cumm 1.35 H Absolute Eosinophils (0.0-0.7) k/cumm 0.10 Absolute Basophils (0.0-0.2) k/cumm 0.01 Sodium (136-145) mmol/L 134 L Potassium (3.5-5.1) mmol/L 4.2 Chloride (98-107) mmol/L 94 L Carbon Dioxide (21.0-32.0) mmol/L 27.5 Anion Gap (3-11) mmol/L 12.5 H BUN (7-18) mg/dL 28 H Creatinine (0.70-1.30) mg/dL 2.22 H Estimated GFR/1.73 m2 (mL/min/1.73m2) 29.26 Glucose (70-100) mg/dL 130 H Lactate (0.6-1.4) mmol/L Calcium (8.5-10.1) mg/dL 10.7 H Total Bilirubin (0.2-1.0) mg/dL 1.0 AST (15-37) U/L 24 ALT (12-78) U/L 31 Alkaline Phosphatase (46-116) U/L 129 H Troponin I (0.00-0.06) ng/mL < 0.02 NT-Pro-B Natriuret Pep ( - 299) pg/mL 307 H Total Protein (6.4-8.2) g/dL 8.0 Albumin (3.4-5.0) g/dL 3.4 Range/Units 06/16/18 11:25 WBC (4.4-10.8) k/cumm RBC (4.50-6.00) m/cumm Hgb (13.5-17.5) g/dL Hct (40.0-50.0) % MCV (80-95) fL MCH (27.0-33.0) pg MCHC (32.0-36.0) g/dL RDW (11.8-14.1) % Plt Count (130-400) x1000/uL MPV (8.0-11.0) fL Immature Gran % Neutrophils % Lymphocytes % Monocytes % Eosinophils % Basophils % Absolute Neutrophils (1.2-6.7) k/cumm Absolute Lymphocytes (1.2-3.4) k/cumm Absolute Monocytes (0.11-0.7) k/cumm Absolute Eosinophils (0.0-0.7) k/cumm Absolute Basophils (0.0-0.2) k/cumm Sodium (136-145) mmol/L Potassium (3.5-5.1) mmol/L Chloride (98-107) mmol/L Carbon Dioxide (21.0-32.0) mmol/L Anion Gap (3-11) mmol/L BUN (7-18) mg/dL Creatinine (0.70-1.30) mg/dL Estimated GFR/1.73 m2 (mL/min/1.73m2) Glucose (70-100) mg/dL Lactate (0.6-1.4) mmol/L 3.7 H Calcium (8.5-10.1) mg/dL Total Bilirubin (0.2-1.0) mg/dL AST (15-37) U/L ALT (12-78) U/L Alkaline Phosphatase (46-116) U/L Troponin I (0.00-0.06) ng/mL NT-Pro-B Natriuret Pep ( - 299) pg/mL Total Protein (6.4-8.2) g/dL Albumin (3.4-5.0) g/dL
== END 2018-06-19 13:00 | disposition home or self-care (01) | DRG 194 ==
LOC: ER 14:29 → MS 14:37
PROVIDERS: Nurse Practitioner; Admitting Provider Family Medicine; Emergency Provider Student in an Organized Health Care Education/Training Program; PCP Nurse Practitioner Family; Visit Provider Internal Medicine
DX: J18.9 Pneumonia, unspecified organism (principal); N17.9 Acute kidney failure, unspecified; R10.9 Unspecified abdominal pain; I71.4 Abdominal aortic aneurysm, without rupture; K58.9 Irritable bowel syndrome, unspecified; N18.3 Chronic kidney disease, stage 3 (moderate)
CPT/HCPCS: 36415; 80048; 80053; 83690; 87449; 93005; 94640; 96361; 96368; 97161; 99222; 99232; 99233; 99239; 99285; 71046; 74176; 81003; 82150; 82728; 83540; 83550; 83605; 83880; 84100; 84484; 85025; 93010; J1650; J1956; J3490; J7613

== ENCOUNTER 2018-07-03 11:29 | Inpatient (IN) | payer MEDICARE, SELFPAY ==
[2018-07-03] VITALS (60 sets, daily range): BP systolic 124–158; BP diastolic 63–100; PULSE 86–125; RESP 15–36; TEMP 36.4–37; O2SAT 88–100
--- NOTE | 2018-07-03 12:19 | W.ED.GENAD ---
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 Primary Care Provider: Fidelina Goodman ED Provider: Marco Antonio Gutierrez Home Meds and New Rx's Prescriptions: No Action hyoscyamine sulfate 0.125 mg tablet 0.125 - 0.25 mg PO QID PRN (Reason: dyspepsia) Qty: 90 RF: 3 aspirin [Aspir-81] 81 MG tablet,delayed release (DR/EC) 81 mg PO DAILY RF: 0 fluticasone-salmeterol [Advair Diskus] 1 EACH blister with device 1 ea Inhalation BID Qty: 3 RF: 3 albuterol sulfate [ProAir HFA] 8.5 GM HFA aerosol inhaler 1 - 2 puff Inhalation Q4-6H PRN Qty: 3 RF: 3 nitroglycerin [Nitrostat] 0.4 MG tablet, sublingual 0.4 mg Sublingual PRN Qty: 25 RF: 3 umeclidinium [Incruse Ellipta] 62.5 MCG blister with device 62.5 mcg Inhalation DAILY Qty: 3 RF: 3 lisinopril 20 MG tablet 20 mg PO DAILY Qty: 90 RF: 3 metoprolol succinate 100 MG tablet extended release 24 hr 100 mg PO DAILY Qty: 90 RF: 3 loratadine 10 MG tablet 10 mg PO DAILY Qty: 90 RF: 3 hydrochlorothiazide 12.5 MG tablet 12.5 mg PO DAILY Qty: 90 RF: 3 Atorvastatin Calcium 20 MG tablet 20 mg PO DAILY Qty: 90 RF: 3 omeprazole 40 mg capsule,delayed release(DR/EC) 40 mg PO BID Qty: 30 RF: 0 Medical Decision Making 73yo m with multiple medical problems including COPD, recent PNA, AAA, here with diffuse abdominal pain over the past 1 week. Patient also with some cough and wheezing. Diffuse abdominal tenderness. Patient is tachycardic and normotensive. Concern for ruptured AAA versus ischemic bowel. Plan to obtain stat CTA chest/ab/pelv. ECG reviewed and interpreted by me: Sinus tachycardia 104 bpm, frequent PVCs, low voltage in precordial leads, ECG is nondiagnostic. --Lactate is elevated. 13:52 -- Patient having increasing SOB and wheezing. Will give duoneb. 15:00 -- Patient reassessed: pain improved after dilaudid. Breathing improved, currently on second neb treatment. CT interpreted by radiology: CONCLUSION: 1. Stable abdominal aortic aneurysm with no evidence of leakage or dissection. 2. Spiculated left upper lobe perihilar lung mass highly suspicious for carcinoma with involvement of left hilar and central mediastinal nodes. 3. Apparent destructive lesion of T6 vertebral body highly suspicious for bony metastatic disease from lung carcinoma. Spoke with Dr. Johnson ([facility] medical oncology): she recommends outpatient workup including biopsy - agrees with admission for pain control. 16:50 -- Patient reassessed and pain returning. WIll give another dose of dilaudid. 16:55 -- Spoke with Dr. Lancaster who will admit. Care transferred to Dr. Lancaster. HPI General Mode of arrival: ambulatory. Date/Time Provider Initiated Documentation: 07/03/18 12:06. Limitations to Documentation: no limitations. Information obtained by: patient. HPI Narrative: 73-year-old male with multiple medical problems including history of AAA, IBS, ASCVD, coronary artery disease status post WI and stent placement, COPD, hypertension, ROGER, recent diagnosis of pneumonia left lung requiring inpatient admission, presents from primary care physician's office with abdominal pain. Pain is severe. Pain is localized to his diffuse abdomen worse in the upper abdomen and and radiates bandlike to his back. He denies associated vomiting. He has had some nausea. No bright red blood per rectum or melena. Patient continues to have cough but denies fever. Related Data Home Medications Medication Instructions Recorded Confirmed aspirin [Aspir-81] 81 mg PO DAILY tab-cap 12/12/15 07/03/18 fluticasone-salmeterol [Advair 1 ea INHALATION BID #3 inhaler 08/12/17 07/03/18 Diskus] albuterol sulfate [ProAir HFA] 1 - 2 puff INHALATION Q4-6H PRN #3 09/06/17 07/03/18 inhaler nitroglycerin [Nitrostat] 0.4 mg SUBLINGUAL PRN #25 tab 11/26/17 07/03/18 umeclidinium [Incruse Ellipta] 62.5 mcg INHALATION DAILY #3 11/26/17 07/03/18 inhaler hydrochlorothiazide 12.5 mg PO DAILY #90 tab-cap 12/19/17 07/03/18 lisinopril 20 mg PO DAILY #90 tab 12/19/17 07/03/18 loratadine 10 mg PO DAILY #90 tab-cap 12/19/17 07/03/18 metoprolol succinate 100 mg PO DAILY #90 tab 12/19/17 07/03/18 omeprazole 40 mg PO BID #30 cap 06/19/18 07/03/18 hyoscyamine sulfate 0.125 mg tablet 0.125 - 0.25 mg PO QID PRN #90 07/03/18 07/03/18 tab-cap Previous Rx's Medication Instructions Recorded fluticasone-salmeterol [Advair 1 ea INHALATION BID #3 inhaler 08/12/17 Diskus] albuterol sulfate [ProAir HFA] 1 - 2 puff INHALATION Q4-6H PRN #3 09/06/17 inhaler nitroglycerin [Nitrostat] 0.4 mg SUBLINGUAL PRN #25 tab 11/26/17 umeclidinium [Incruse Ellipta] 62.5 mcg INHALATION DAILY #3 11/26/17 inhaler hydrochlorothiazide 12.5 mg PO DAILY #90 tab-cap 12/19/17 lisinopril 20 mg PO DAILY #90 tab 12/19/17 loratadine 10 mg PO DAILY #90 tab-cap 12/19/17 metoprolol succinate 100 mg PO DAILY #90 tab 12/19/17 omeprazole 40 mg PO BID #30 cap 06/19/18 hyoscyamine sulfate 0.125 mg tablet 0.125 - 0.25 mg PO QID PRN #90 07/03/18 tab-cap Allergies Allergy/AdvReac Type Severity Reaction Status Date / Time benazepril Allergy Mild unknown Unverified 07/03/18 11:41 ezetimibe Allergy Mild NO Unverified 07/03/18 11:41 REACTION NOTED pravastatin Allergy Mild NO Unverified 07/03/18 11:41 REACTION NOTED erythromycin base AdvReac Mild GI SYMPTOMS Unverified 07/03/18 11:41 fenofibrate AdvReac Mild ABDOMINAL Unverified 07/03/18 11:41 PAIN niacin AdvReac Mild FLUSHING Unverified 07/03/18 11:41 REDNESS nortriptyline AdvReac Mild NAUSEA Unverified 07/03/18 11:41 omeprazole AdvReac Mild BACK PAIN Unverified 07/03/18 11:41 General Stated Complaint: Abd Prob LUIS: 2 Review of Systems Review of Systems All systems reviewed & are unremarkable except as noted in HPI and below Cardiovascular Denies chest pain Respiratory Reports cough and Reports wheezing Allergic/Immunologic Reports wheezing PFSH Family History Mother No problems noted. Father Myocardial infarction Medical History Headache HLD (hyperlipidemia) GERD (gastroesophageal reflux disease) HTN (hypertension) IBS (irritable bowel syndrome) (Chronic) ASCVD (arteriosclerotic cardiovascular disease) (Chronic 03/04/13) Essential hypertension (Chronic 03/04/13) PVD (peripheral vascular disease) (Chronic 04/08/15) Hyperlipidemia, unspecified (Chronic 03/04/13) Gastroesophageal reflux disease (Chronic 10/02/11) Compression fracture of vertebral column (Resolved 10/02/11) Chronic obstructive pulmonary disease (COPD) (Chronic 10/02/11) Chronic kidney disease (CKD), stage III (moderate) (Chronic 09/23/13) 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 He states he quit smoking and drinking several years ago. Surgical History Coronary Stent (08/05/06) Repair of inguinal hernia Trigger Finger release (05/06/16) Exam Const General: cooperative, uncomfortable, well developed and acute distress moderate Orientation: alert and awake HENMT Head: normocephalic and atraumatic Mouth: moist mucous membranes Eyes Conjunctivae: normal conjunctivae Sclera: normal sclerae Neck Neck: trachea midline and supple Resp Auscultation: rales bilaterally, no rhonchi and wheezes Cardio Jugular venous pressure: no JVD Rate: regular rate and not tachycardic Rhythm: regular rhythm GI Palpation: soft, not firm, no guarding, no masses, not rigid and nontender Skin General skin exam: no rashes or lesions noted Neuro General: alert, awake, oriented x3 and tone normal Extrem General: no edema Psych Appearance: grossly normal Mental Status: mental status grossly normal Speech and Movement: speech and movement normal Course Vital Signs Temperature 36.4 C L 07/03/18 11:38 Pulse 111 H 07/03/18 11:38 Respiratory Rate 24 07/03/18 11:38 Blood Pressure 144/90 H 07/03/18 11:38 Pulse Oximetry 97 07/03/18 11:38 Temperature 36.4 C L 07/03/18 11:38 Temperature Source Temporal Artery Scan 07/03/18 11:38 Pulse 111 H 07/03/18 11:38 Respiratory Rate 24 07/03/18 11:38 Respiratory Effort Incrsd Work of Breathing 07/03/18 11:40 Blood Pressure 144/90 H 07/03/18 11:38 Blood Pressure Position Sitting 07/03/18 11:38 Pulse Oximetry 97 07/03/18 11:38 Oxygen Delivery Method Room Air 07/03/18 11:38 Oxygen Flow Rate 0 07/03/18 11:38 Pain Level 10 07/03/18 11:38
[2018-07-03 12:34] LABS: Abs Immature Grans 0.03 k/cumm (0.0-0.09); Absolute Basophil Count 0.01 k/cumm (0.0-0.2); Absolute Eosinophil Count 0.07 k/cumm (0.0-0.7); Absolute Lymphocyte Count 1.11 k/cumm (1.2-3.4); Absolute Monocyte Count 0.74 k/cumm (0.11-0.7); Absolute Neutrophil Count 8.95 k/cumm (1.2-6.7); Basophils % 0.1; Eosinophils % 0.6; HCT 44.7 % (40.0-50.0); HGB 14.5 g/dL (13.5-17.5); Immature Grans % 0.3; Lactate 2.8 mmol/L (0.6-1.4); Lymphocytes % 10.2; Mean Corp. HGB Concentration 32.4 g/dL (32.0-36.0); Mean Corpuscular Hemoglobin 29.7 pg (27.0-33.0); Mean Corpuscular Volume 91.6 fL (80-95); Mean Platelet Volume 9.9 fL (8.0-11.0); Monocytes % 6.8; Platelet Count 407 x1000/uL (130-400); RBC 4.88 m/cumm (4.50-6.00); RBC Distribution Width 13.5 % (11.8-14.1); White Blood Cell Count 10.91 k/cumm (4.4-10.8)
[2018-07-03] MEDS: Normal Saline 1,000 ML 1000 ML IV ×2 (12:37→14:52)
[2018-07-03] MEDS: HYDROmorphone 2 MG/ML VIAL 0.5 MG IVP ×3 (12:37→18:49)
[2018-07-03 12:56] LABS: ALT 33 U/L (12-78); AST 35 U/L (15-37); Albumin 3.6 g/dL (3.4-5.0); Alkaline Phosphatase 143 U/L (46-116); Anion Gap 12.8 mmol/L (3-11); BUN 31 mg/dL (7-18); Bilirubin, Total 0.7 mg/dL (0.2-1.0); CO2 29.2 mmol/L (21.0-32.0); CREATININE 1.42 mg/dL (0.70-1.30); Calcium 10.6 mg/dL (8.5-10.1); Chloride 94 mmol/L (98-107); Estimated GFR 49.01 (mL/min/1.73m2); Glucose 151 mg/dL (70-100); Lipase 391 U/L (73-393); Magnesium 2.1 mg/dL (1.8-2.4); Potassium 3.5 mmol/L (3.5-5.1); Sodium 136 mmol/L (136-145); Total Protein 8.6 g/dL (6.4-8.2); Troponin I 0.04 ng/mL (0.00-0.06)
--- NOTE | 2018-07-03 13:10 | NUR.NOTE ---
MD Gutierrez aware of elevated creatinine, plan to proceed with CT scan.
--- NOTE | 2018-07-03 13:24 | NUR.NOTE ---
MD Gutierrez aware that pt. requires 2L NC to maintain 02 sat greater than 90% on RA, pt. admits to only a little improvement after dilaudid.
--- NOTE | 2018-07-03 13:57 | ED.GENADUL_ITS ---
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 Primary Care Provider: Fidelina Goodman ED Provider: Marco Antonio Gutierrez Home Meds and New Rx's Prescriptions: No Action hyoscyamine sulfate 0.125 mg tablet 0.125 - 0.25 mg PO QID PRN (Reason: dyspepsia) Qty: 90 RF: 3 aspirin [Aspir-81] 81 MG tablet,delayed release (DR/EC) 81 mg PO DAILY RF: 0 fluticasone-salmeterol [Advair Diskus] 1 EACH blister with device 1 ea Inhalation BID Qty: 3 RF: 3 albuterol sulfate [ProAir HFA] 8.5 GM HFA aerosol inhaler 1 - 2 puff Inhalation Q4-6H PRN Qty: 3 RF: 3 nitroglycerin [Nitrostat] 0.4 MG tablet, sublingual 0.4 mg Sublingual PRN Qty: 25 RF: 3 umeclidinium [Incruse Ellipta] 62.5 MCG blister with device 62.5 mcg Inhalation DAILY Qty: 3 RF: 3 lisinopril 20 MG tablet 20 mg PO DAILY Qty: 90 RF: 3 metoprolol succinate 100 MG tablet extended release 24 hr 100 mg PO DAILY Qty: 90 RF: 3 loratadine 10 MG tablet 10 mg PO DAILY Qty: 90 RF: 3 hydrochlorothiazide 12.5 MG tablet 12.5 mg PO DAILY Qty: 90 RF: 3 Atorvastatin Calcium 20 MG tablet 20 mg PO DAILY Qty: 90 RF: 3 omeprazole 40 mg capsule,delayed release(DR/EC) 40 mg PO BID Qty: 30 RF: 0 Medical Decision Making 73yo m with multiple medical problems including COPD, recent PNA, AAA, here with diffuse abdominal pain over the past 1 week. Patient also with some cough and wheezing. Diffuse abdominal tenderness. Patient is tachycardic and normotensive. Concern for ruptured AAA versus ischemic bowel. Plan to obtain stat CTA chest/ab/pelv. ECG reviewed and interpreted by me: Sinus tachycardia 104 bpm, frequent PVCs, low voltage in precordial leads, ECG is nondiagnostic. --Lactate is elevated. 13:52 -- Patient having increasing SOB and wheezing. Will give duoneb. 15:00 -- Patient reassessed: pain improved after dilaudid. Breathing improved, currently on second neb treatment. CT interpreted by radiology: CONCLUSION: 1. Stable abdominal aortic aneurysm with no evidence of leakage or dissection. 2. Spiculated left upper lobe perihilar lung mass highly suspicious for carcinoma with involvement of left hilar and central mediastinal nodes. 3. Apparent destructive lesion of T6 vertebral body highly suspicious for bony metastatic disease from lung carcinoma. Spoke with Dr. Johnson ([facility] medical oncology): she recommends outpatient workup including biopsy - agrees with admission for pain control. 16:50 -- Patient reassessed and pain returning. WIll give another dose of dilaudid. 16:55 -- Spoke with Dr. Lancaster who will admit. Care transferred to Dr. Lancaster. HPI General Mode of arrival: ambulatory . Date/Time Provider Initiated Documentation: 07/03/18 12:06 . Limitations to Documentation: no limitations . Information obtained by: patient . HPI Narrative: 73-year-old male with multiple medical problems including history of AAA, IBS, ASCVD, coronary artery disease status post HI and stent placement, COPD, hypertension, ROGER, recent diagnosis of pneumonia left lung requiring inpatient admission, presents from primary care physician's office with abdominal pain. Pain is severe. Pain is localized to his diffuse abdomen worse in the upper abdomen and and radiates bandlike to his back. He denies associated vomiting. He has had some nausea. No bright red blood per rectum or melena. Patient continues to have cough but denies fever. Related Data Home Medications Medication Instructions Recorded Confirmed aspirin [Aspir-81] 81 mg PO DAILY tab-cap 12/12/15 07/03/18 fluticasone-salmeterol [Advair 1 ea INHALATION BID #3 inhaler 08/12/17 07/03/18 Diskus] albuterol sulfate [ProAir HFA] 1 - 2 puff INHALATION Q4-6H PRN #3 09/06/1707/03 inhaler nitroglycerin [Nitrostat] 0.4 mg SUBLINGUAL PRN #25 tab 11/26/17 07/03/18 umeclidinium [Incruse Ellipta] 62.5 mcg INHALATION DAILY #3 11/26/17 07/03/18 inhaler hydrochlorothiazide 12.5 mg PO DAILY #90 tab-cap 12/19/17 07/03/18 lisinopril 20 mg PO DAILY #90 tab 12/19/17 07/03/18 loratadine 10 mg PO DAILY #90 tab-cap 12/19/17 07/03/18 metoprolol succinate 100 mg PO DAILY #90 tab 12/19/17 07/03/18 omeprazole 40 mg PO BID #30 cap 06/19/18 07/03/18 hyoscyamine sulfate 0.125 mg tablet 0.125 - 0.25 mg PO QID PRN #90 07/03/18 tab-cap Previous Rx's Medication Instructions Recorded fluticasone-salmeterol [Advair 1 ea INHALATION BID #3 inhaler 08/12/17 Diskus] albuterol sulfate [ProAir HFA] 1 - 2 puff INHALATION Q4-6H PRN #3 09/06/17 inhaler nitroglycerin [Nitrostat] 0.4 mg SUBLINGUAL PRN #25 tab 11/26/17 umeclidinium [Incruse Ellipta] 62.5 mcg INHALATION DAILY #3 11/26/17 inhaler hydrochlorothiazide 12.5 mg PO DAILY #90 tab-cap 12/19/17 lisinopril 20 mg PO DAILY #90 tab 12/19/17 loratadine 10 mg PO DAILY #90 tab-cap 12/19/17 metoprolol succinate 100 mg PO DAILY #90 tab 12/19/17 omeprazole 40 mg PO BID #30 cap 06/19/18 hyoscyamine sulfate 0.125 mg tablet 0.125 - 0.25 mg PO QID PRN #90 07/03/18 tab-cap Allergies Allergy/AdvReac Type Severity Reaction Status Date / Time benazepril Allergy Mild unknown Unverified 07/03/18 11:41 ezetimibe Allergy Mild NO Unverified 07/03/18 11:41 REACTION NOTED pravastatin Allergy Mild NO Unverified 07/03/18 11:41 REACTION NOTED erythromycin base AdvReac Mild GI SYMPTOMS Unverified 07/03/18 11:41 fenofibrate AdvReac Mild ABDOMINAL Unverified 07/03/18 11:41 PAIN niacin AdvReac Mild FLUSHING Unverified 07/03/18 11:41 REDNESS nortriptyline AdvReac Mild NAUSEA Unverified 07/03/18 11:41 omeprazole AdvReac Mild BACK PAIN Unverified 07/03/18 11:41 General Stated Complaint: Abd Prob LUIS: 2 Review of Systems Review of Systems All systems reviewed & are unremarkable except as noted in HPI and below Cardiovascular Denies chest pain Respiratory Reports cough and Reports wheezing Allergic/Immunologic Reports wheezing PFSH Family History Mother No problems noted. Father Myocardial infarction Medical History Headache HLD (hyperlipidemia) GERD (gastroesophageal reflux disease) HTN (hypertension) IBS (irritable bowel syndrome) (Chronic) ASCVD (arteriosclerotic cardiovascular disease) (Chronic 03/04/13) Essential hypertension (Chronic 03/04/13) PVD (peripheral vascular disease) (Chronic 04/08/15) Hyperlipidemia, unspecified (Chronic 03/04/13) Gastroesophageal reflux disease (Chronic 10/02/11) Compression fracture of vertebral column (Resolved 10/02/11) Chronic obstructive pulmonary disease (COPD) (Chronic 10/02/11) Chronic kidney disease (CKD), stage III (moderate) (Chronic 09/23/13) 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 He states he quit smoking and drinking several years ago. Surgical History Coronary Stent (08/05/06) Repair of inguinal hernia Trigger Finger release (05/06/16) Exam Const General: cooperative, uncomfortable, well developed and acute distress moderate Orientation: alert and awake HENMT Head: normocephalic and atraumatic Mouth: moist mucous membranes Eyes Conjunctivae: normal conjunctivae Sclera: normal sclerae Neck Neck: trachea midline and supple Resp Auscultation: rales bilaterally, no rhonchi and wheezes Cardio Jugular venous pressure: no JVD Rate: regular rate and not tachycardic Rhythm: regular rhythm GI Palpation: soft, not firm, no guarding, no masses, not rigid and nontender Skin General skin exam: no rashes or lesions noted Neuro General: alert, awake, oriented x3 and tone normal Extrem General: no edema Psych Appearance: grossly normal Mental Status: mental status grossly normal Speech and Movement: speech and movement normal Course Vital Signs Temperature 36.4 C L 07/03/18 11:38 Pulse 111 H 07/03/18 11:38 Respiratory Rate 24 07/03/18 11:38 Blood Pressure 144/90 H 07/03/18 11:38 Pulse Oximetry 97 07/03/18 11:38 Temperature 36.4 C L 07/03/18 11:38 Temperature Source Temporal Artery Scan 07/03/18 11:38 Pulse 111 H 07/03/18 11:38 Respiratory Rate 24 07/03/18 11:38 Respiratory Effort Incrsd Work of Breathing 07/03/18 11:40 Blood Pressure 144/90 H 07/03/18 11:38 Blood Pressure Position Sitting 07/03/18 11:38 Pulse Oximetry 97 07/03/18 11:38 Oxygen Delivery Method Room Air 07/03/18 11:38 Oxygen Flow Rate 0 07/03/18 11:38 Pain Level 10 07/03/18 11:38
--- NOTE | 2018-07-03 13:59 | NUR.NOTE ---
Pt. to CT scan.
[2018-07-03] MEDS: Omnipaque 350 MG/ML 100 ML BTL IJ (14:14)
[2018-07-03] MEDS: Albuterol/Ipratropium 3 ML UPD VIAL UPD ×2 (14:20→14:53)
--- NOTE | 2018-07-03 14:23 | DI.CT_ITS ---
SYMPTOMS/DIAGNOSIS: ABD PAIN SEVERE, H/O AAA CT ANGIOGRAPHY CHEST, ABDOMEN AND PELVIS: CT angiography was performed with multi slice acquisition and multi planar and 3D reconstruction. CT Angiography of the chest, abdomen and pelvis was performed with a bolus infusion of 100 cc's of Omnipaque 350. The patient has a known abdominal aortic aneurysm, this measures 4.5 cm in diameter and is infrarenal. No change in size in comparison with recent abdominal CT of 06/16/18. No evidence of leaking aneurysm. No additional aneurysm identified. No thoracic aortic dissection or aneurysm. Major arterial branches of thoracic and abdominal aorta appear patent. Common external and internal iliac arteries appear patent as well with severe atheromatous disease. There is a left upper lobe spiculated lung mass adjacent to the hilum measuring up to about 27 mm in diameter. Central mediastinal lymph node enlargement is noted, the largest group of nodes about 3.6 cm in diameter in the AP window. There are small poorly defined perilesional nodules associated with the left upper lobe mass. No additional evidence of intrapulmonary metastatic disease noted. Note is made of vertebral body lesion of T 6 with apparent bony destruction and an associated soft tissue mass extending into the right paraspinal tissues at this level. There may be erosion of the superior endplate of T 7 as well. Additionally there is somewhat demineralized appearance of multiple vertebral bodies, additional metastatic bony involvement is possible. The liver and spleen are unremarkable in appearance. The adrenals appear normal. The kidneys appear normal. The pancreas appears normal. The gallbladder and bile ducts are unremarkable. No significant abdominal wall hernia. No abdominal or pelvic adenopathy seen. CONCLUSION: 1. Stable abdominal aortic aneurysm with no evidence of leakage or dissection. 2. Spiculated left upper lobe perihilar lung mass highly suspicious for carcinoma with involvement of left hilar and central mediastinal nodes. 3. Apparent destructive lesion of T 6 vertebral body highly suspicious for bony metastatic disease from lung carcinoma.
--- NOTE | 2018-07-03 15:29 | NUR.NOTE ---
Pt. feels much better after 2nd albuterol nebulizer, pain improved as well. MD Gutierrez is at the bedside updating patient.
--- NOTE | 2018-07-03 15:37 | NUR.NOTE ---
02 down to high 80s again on RA, placed back on 2L NC.
--- NOTE | 2018-07-03 17:55 | W.PM.HP.N ---
Date of service: 07/03/18 Time of Service: 17:55 Assessment and Plan (1) Lung mass: Current visit: Yes Status: Acute Previously thought to be Pneumonia by CXR, treated with one week of antibiotic therapy, confirmed as lung mass highly suspicious for malignancy. Plan will be for discussion with patient regarding his wishes, followed by plans for outpatient follow-up and work-up if deemed appropriate by patient. Will likely need tissue biopsy, oncology follow-up after attempts at adequate pain control. (2) Abdominal pain: Current visit: Yes Status: Acute Ongoing for some time, previously described as intermittent, mild, achy upper abdominal pain of a few weeks' duration. Etiology very likely on the basis of T6 vertebral body destructive lesion, as described by patient with a band-like area of pain across the epigastrium. Plan will be for pain control - initiate on Duragesic patch, with oral MSIR for mild to moderate pain and IV Dilaudid for severe pain. Ensure bowel regimen as well. (3) GERD (gastroesophageal reflux disease): Current visit: No Status: None Continue PPI therapy. (4) Chronic obstructive pulmonary disease (COPD): Current visit: No Status: Chronic With current wheezing. Continue home inhalers, initiate IV Steroids, and maintain on nebs. (5) HTN (hypertension): Current visit: No Status: None Continue thiazide, ALYSSIA-I, and BB with hold parameters. (6) ASCVD (arteriosclerotic cardiovascular disease): Current visit: No Status: Chronic History of prior stent placement. Appears quiescent. BB on hold. Continue ASA, statin. (7) Chronic kidney disease (CKD), stage III (moderate): Current visit: No Status: Chronic Creatinine higher than last checked, but appears at baseline. Monitor. (8) Abdominal aortic aneurysm (AAA): Current visit: No Status: Chronic 4.9 cm aortic aneurysm by ultrasound 12/05/2015, confirmed stable by CT 06/2018. (9) DVT prophylaxis: Current visit: No Status: Acute Renally dosed SC Lovenox. (10) Advance directive discussed with patient: Current visit: Yes Status: Acute DNR/DNI per discussion at time of admission. History of Present Illness Chief Complaint: Abdominal Pain Narrative: 73-year-old man with a past medical history significant for stable AAA, CAD with history of OR and stent placement, and recent hospitalization and treatment for pneumonia, admitted from [facility] Emergency Department with complaints of abdominal pain. Mr. Segal has a past history of CAD s/p stents, stable AAA, COPD, GERD with a diagnosis of Nava's esophagus, IBS, HTN, and chronic kidney disease. He initially presented to the ED on 06/16/18 with a 2-week history of diffuse abdominal pain and vomiting. In the ED, he had a noncontrast abdominal CT scan which showed a stable 4.5 cm infrarenal abdominal aortic aneurysm, with no acute process. Chest x-ray revealed a Left upper lobe opacity suspicious for pneumonia. He also reported a cough and some shortness of breath with activity. A follow up x-ray was recommended to document complete resolution of the left upper lobe infiltrate, and recommended at time of discharge. He was maintained on antibiotic therapy with subjective improvement from a respiratory standpoint. He did continue to have some abdominal pain, so his PPI was increased to twice daily dosing and his abdominal pain markedly improved at time of dishcarge. The patient presents back to the ED today with complaint of continued upper abdominal pain, complaining that it had been keeping him awake. He was evaluated in the ED with a CT of the chest and abdomen that showed the PAU process previously thought to be pneumonia to be a spiculated PAU lung mass highly suspicious for malignancy. He also had apparent destructive lesion of the T6 vertebral body suspicious for a bony met as potential explanation for the banding epigastric pain. Mr. Segal was referred for admission for pain control. Review of Systems Review of Systems All systems reviewed & are unremarkable except as noted in HPI and below PFSH Family History Mother No problems noted. Father Myocardial infarction Medical History Headache HLD (hyperlipidemia) GERD (gastroesophageal reflux disease) HTN (hypertension) IBS (irritable bowel syndrome) (Chronic) ASCVD (arteriosclerotic cardiovascular disease) (Chronic 03/04/13) Essential hypertension (Chronic 03/04/13) PVD (peripheral vascular disease) (Chronic 04/08/15) Hyperlipidemia, unspecified (Chronic 03/04/13) Gastroesophageal reflux disease (Chronic 10/02/11) Compression fracture of vertebral column (Resolved 10/02/11) Chronic obstructive pulmonary disease (COPD) (Chronic 10/02/11) Chronic kidney disease (CKD), stage III (moderate) (Chronic 09/23/13) 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 He states he quit smoking and drinking several years ago. Surgical History Coronary Stent (08/05/06) Repair of inguinal hernia Trigger Finger release (05/06/16) Social History Smoking/Tobacco Use Status: Former Tobacco Use additional social history: He lives with his brother and 97-year-old mother who has severe dementia. 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 He states he quit smoking and drinking several years ago. Meds Home Medications Medication Instructions Recorded Confirmed Type aspirin [Aspir-81] 81 mg PO DAILY tab-cap 12/12/15 07/03/18 History fluticasone-salmeterol [Advair 1 ea INHALATION BID #3 inhaler 08/12/17 07/03/18 Rx Diskus] albuterol sulfate [ProAir HFA] 1 - 2 puff INHALATION Q4-6H PRN #3 09/06/17 07/03/18 Rx inhaler nitroglycerin [Nitrostat] 0.4 mg SUBLINGUAL PRN #25 tab 11/26/17 07/03/18 Rx umeclidinium [Incruse Ellipta] 62.5 mcg INHALATION DAILY #3 11/26/17 07/03/18 Rx inhaler hydrochlorothiazide 12.5 mg PO DAILY #90 tab-cap 12/19/17 07/03/18 Rx lisinopril 20 mg PO DAILY #90 tab 12/19/17 07/03/18 Rx loratadine 10 mg PO DAILY #90 tab-cap 12/19/17 07/03/18 Rx metoprolol succinate 100 mg PO DAILY #90 tab 12/19/17 07/03/18 Rx Atorvastatin Calcium 20 mg PO DAILY #90 tab-cap 04/02/18 07/03/18 Clinic omeprazole 40 mg PO BID #30 cap 06/19/18 07/03/18 Rx hyoscyamine sulfate 0.125 mg tablet 0.125 - 0.25 mg PO QID PRN #90 07/03/18 07/03/18 Rx tab-cap Allergies Allergy/AdvReac Type Severity Reaction Status Date / Time benazepril Allergy Mild unknown Unverified 07/03/18 11:41 ezetimibe Allergy Mild NO Unverified 07/03/18 11:41 REACTION NOTED pravastatin Allergy Mild NO Unverified 07/03/18 11:41 REACTION NOTED erythromycin base AdvReac Mild GI SYMPTOMS Unverified 07/03/18 11:41 fenofibrate AdvReac Mild ABDOMINAL Unverified 07/03/18 11:41 PAIN niacin AdvReac Mild FLUSHING Unverified 07/03/18 11:41 REDNESS nortriptyline AdvReac Mild NAUSEA Unverified 07/03/18 11:41 omeprazole AdvReac Mild BACK PAIN Unverified 07/03/18 11:41 Exam Narrative Exam Narrative: General: Patient appears uncomfortable but not acutely distressed, AAOX3. Pleasant and cooperative. Neck: Supple CV: Regular, borderline tachycardic, S1S2, No rubs, murmurs, or gallops. Pulmonary: diffuse but mild wheezing, with good air entry throughout. Limited anterior and lateral exam due to pain. Abdomen: + Bowel Sounds, soft, nontender, nondistended Vascular: No lower extremity edema Psych: Normal mood and affect. Results Imaging Additional studies: Exam(s) a CT:CT thorax & abd/pel CTA SYMPTOMS/DIAGNOSIS: ABD PAIN SEVERE, H/O AAA CT ANGIOGRAPHY CHEST, ABDOMEN AND PELVIS: CT angiography was performed with multi slice acquisition and multi planar and 3D reconstruction. CT Angiography of the chest, abdomen and pelvis was performed with a bolus infusion of 100 cc's of Omnipaque 350. The patient has a known abdominal aortic aneurysm, this measures 4.5 cm in diameter and is infrarenal. No change in size in comparison with recent abdominal CT of 06/16/18. No evidence of leaking aneurysm. No additional aneurysm identified. No thoracic aortic dissection or aneurysm. Major arterial branches of thoracic and abdominal aorta appear patent. Common external and internal iliac arteries appear patent as well with severe atheromatous disease. There is a left upper lobe spiculated lung mass adjacent to the hilum measuring up to about 27 mm in diameter. Central mediastinal lymph node enlargement is noted, the largest group of nodes about 3.6 cm in diameter in the AP window. There are small poorly defined perilesional nodules associated with the left upper lobe mass. No additional evidence of intrapulmonary metastatic disease noted. Note is made of vertebral body lesion of T 6 with apparent bony destruction and an associated soft tissue mass extending into the right paraspinal tissues at this level. There may be erosion of the superior endplate of T 7 as well. Additionally there is somewhat demineralized appearance of multiple vertebral bodies, additional metastatic bony involvement is possible. The liver and spleen are unremarkable in appearance. The adrenals appear normal. The kidneys appear normal. The pancreas appears normal. The gallbladder and bile ducts are unremarkable. No significant abdominal wall hernia. No abdominal or pelvic adenopathy seen. CONCLUSION: 1. Stable abdominal aortic aneurysm with no evidence of leakage or dissection. 2. Spiculated left upper lobe perihilar lung mass highly suspicious for carcinoma with involvement of left hilar and central mediastinal nodes. 3. Apparent destructive lesion of T6 vertebral body highly suspicious for bony metastatic disease from lung carcinoma. Labs : 07/03/18 12:20 07/03/18 12:20 Laboratory Results - last 24 hr 07/03/18 07/03/18 07/03/18 12:20 12:20 12:20 WBC 10.91 H RBC 4.88 Hgb 14.5 Hct 44.7 MCV 91.6 MCH 29.7 MCHC 32.4 RDW 13.5 Plt Count 407 H D MPV 9.9 Immature Gran % 0.3 Neutrophils % 82.0 Lymphocytes % 10.2 Monocytes % 6.8 Eosinophils % 0.6 Basophils % 0.1 Absolute Neutrophils 8.95 H Absolute Lymphocytes 1.11 L Absolute Monocytes 0.74 H Absolute Eosinophils 0.07 Absolute Basophils 0.01 Sodium 136 Potassium 3.5 Chloride 94 L Carbon Dioxide 29.2 Anion Gap 12.8 H BUN 31 H Creatinine 1.42 H Estimated GFR/1.73 m2 49.01 Glucose 151 H Lactate 2.8 H* Calcium 10.6 H Magnesium 2.1 Total Bilirubin 0.7 AST 35 ALT 33 Alkaline Phosphatase 143 H Troponin I 0.04 Total Protein 8.6 H Albumin 3.6 Lipase 391 Patient ABO/Rh A Negative Antibody Screen Negative Last Vital Signs Temp 36.4 C L 07/03/18 11:38 Pulse 93 H 07/03/18 17:30 Resp 17 07/03/18 17:31 BP 136/66 07/03/18 17:30 Pulse Ox 95 07/03/18 17:31
[2018-07-03] MEDS: Omeprazole 20 MG CAPCR 40 MG PO (22:31)
[2018-07-03] MEDS: Senna TAB 2 TAB PO (22:31)
[2018-07-03] MEDS: methylPREDNISolone SUCC 40 MG VIAL IVP (22:31)
[2018-07-03] MEDS: fentaNYL 25 MCG PATCH TD (22:32)
[2018-07-03] MEDS: Normal Saline Flush 10 ML SYR (22:32)
[2018-07-03] MEDS: Docusate Sodium 100 MG CAP PO (22:33)
[2018-07-03] MEDS: Enoxaparin 30 MG/0.3 ML SYR SC (22:33)
[2018-07-04 00:47] VITALS: BP 133/74; PULSE 84; RESP 18; TEMP 37.1; O2SAT 96
--- NOTE | 2018-07-04 02:37 | NUR.NOTE ---
Nursing Note: At 1935 hrs. , pt was brought up via stretcher from ER. He is alert and oriented x 3. Has continuous O2 regulated at 2L/NC. Noticed of SOB on exertion, audible wheeziness throughout. Has bearable abdominal pain. Admission care rendered. Skin intact with multiple tiny bruises on both arms. Oriented to call lights system and compliant to it. Cotinue to monitor.
[2018-07-04 07:44] LABS: Abs Immature Grans 0.01 k/cumm (0.0-0.09); Absolute Lymphocyte Count 0.36 k/cumm (1.2-3.4); Absolute Monocyte Count 0.08 k/cumm (0.11-0.7); Absolute Neutrophil Count 4.97 k/cumm (1.2-6.7); HCT 34.1 % (40.0-50.0); HGB 10.9 g/dL (13.5-17.5); Immature Grans % 0.2; Lymphocytes % 6.6; Mean Corpuscular Hemoglobin 29.9 pg (27.0-33.0); Mean Corpuscular Volume 93.7 fL (80-95); Mean Platelet Volume 10.1 fL (8.0-11.0); Monocytes % 1.5; Neutrophils % 91.7; Platelet Count 289 x1000/uL (130-400); RBC 3.64 m/cumm (4.50-6.00); RBC Distribution Width 13.2 % (11.8-14.1); White Blood Cell Count 5.42 k/cumm (4.4-10.8)
[2018-07-04 07:50] VITALS: BP 140/92; PULSE 78; RESP 19; TEMP 36.9; O2SAT 96
[2018-07-04 08:00] LABS: Anion Gap 7.2 mmol/L (3-11); BUN 26 mg/dL (7-18); CO2 26.8 mmol/L (21.0-32.0); CREATININE 0.93 mg/dL (0.70-1.30); Calcium 9.3 mg/dL (8.5-10.1); Chloride 102 mmol/L (98-107); Glucose 136 mg/dL (70-100); Magnesium 1.8 mg/dL (1.8-2.4); Potassium 4.4 mmol/L (3.5-5.1); Sodium 136 mmol/L (136-145)
[2018-07-04] MEDS: Aspirin E.C. 81 MG TABEC PO (08:33)
[2018-07-04] MEDS: Docusate Sodium 100 MG CAP PO ×3 (08:33→20:17)
[2018-07-04] MEDS: methylPREDNISolone SUCC 40 MG VIAL IVP ×2 (08:34→20:16)
[2018-07-04] MEDS: Metoprolol CR 100 MG TABCR PO (08:34)
[2018-07-04] MEDS: Lisinopril 20 MG TAB PO (08:34)
[2018-07-04] MEDS: Omeprazole 20 MG CAPCR 40 MG PO ×2 (08:34→20:16)
[2018-07-04] MEDS: Loratidine 10 MG TAB PO (08:35)
[2018-07-04] MEDS: Umeclidinium 7 CAP INHALER 1 CAP IH (08:55)
[2018-07-04] MEDS: Budesonide/Formoterol 160/4.5 6 GM 60 PUFF INH IH ×2 (08:55→20:19)
--- NOTE | 2018-07-04 10:13 | PT.INIE ---
Date of service: 07/04/18 Time of Service: 10:13 PT Notes Date: 07/04/18 Referring Doctor: Bradley Lancaster PT Orders: PT CONSULT: a Precautions: standard precautions Patient Profile/Admitting Diagnosis: Pt is a 73yr old male admitted abdominal pain, lung mass and T6 vertebral body destructive lesion PMHX: chronic obstructive pulmonary disease, abdominal aortic aneurysm, arteriosclerotic cardiovascular disease, myocardial infarction, peripheral vascular disease, compression fracture, anxiety, chronic kidney disease, hypertension, hyperlipidemia, gastroesophageal reflux disease, Nava's Esophagus Social History/Home Situation: Lives in a house with his brother and 97year old mother with dementia, 2 steps with railing to enter, baseline mobility independent gait with no device, independent with ADLS. Equipment Owned/DME: none Subjective: Pt sitting in recliner chair, states he is scared, that he doesn't know what is going on with him and he was told he had Cancer. Pt wanting to talk with doctor about his diagnosis, wanting to talk with someone about his hospital bill. Objective: General Observation: 2 liters 02 NC Mental Status: A & Ox3 Pain: no c/o pain Bed Mobility/Transfers: Sit-stand: SBA with no device Stand-sit: SBA Gait: CGA with no device, 60ftx2, slow steady, step through gait pattern. Pt short of breath with exertion but able to carry on converstation using 2 liters 02 NC. Pt instructed in pacing and energy conservation techniques. Returned to chair in room after gait session. Balance: Static Sitting: normal Dynamic Sitting: normal Static Standing: Fair Dynamic Standing: Fair Special Tests: Mobility Limitations Standardized Measure [facility] AM-PAC 6 clicks Basic Mobility Inpatient Short Form: Raw Score: 18 Standardized Score: 43.63 CMS Score: 46.58% [facility] Modifier: CK Informed Consent/Education: Patient instructed in purpose of PT consult and plan of care. Assessment: Pt is a 73yr old male admitted abdominal pain, lung mass and T6 vertebral body destructive lesion, in setting of chronic obstructive pulmonary disease, abdominal aortic aneurysm, arteriosclerotic cardiovascular disease, myocardial infarction, peripheral vascular disease, compression fracture, anxiety. Pt presents with the following impairment level findings: shortness of breath with exertion requiring pacing and energy conservation with activity and 2 liters 02 NC, decreased strength and dynamic standing balance with transfers and gait compared to baseline. Pt is not in need of assistive device at this time but will benefit from short term gait and mobility training to assist return to fully independent, anticipate return to home setting at discharge. Impairments are contributing to the following functional limitations: AMPAC score CMS Score: 46.58% Patient is assessed as a Low 14477 complexity based on the following: History: see above Examination: see above Presentation: stable Decision Making: AMPAC score CMS Score: 46.58% Goals: 1. Supine-sit: independent 2. Sit-supine: independent 3. Sit-stand: independent 4. Stand-sit: independent 5. Bed-chair: supervision 6. Chair-bed: supervision 7. Gait: supervision with no device 200ft 8. Stairs: up/down 2 steps with railing, supervision Plan of Care/Treatment Plan: 1-2x/day, 7 days/week x 1 week CLAIMS CONFIGURATION ANALYST instructed in plan of care Initiate PT services for strengthening, bed mobility, transfers, gait and stair training, balance training, instruction in pacing and energy conservation techniques DISCHARGE RECOMMENDATIONS: Home TREATMENT CODE/TIME: 26 min IE 10:13 G Codes in the area mobility of walking and moving around: current status [id number] []; projected status GP [id number]-[]. Discharge status (if discharging) GP [id number] - AMPAC score CMS Score: 46.58% Sue Cm PT
--- NOTE | 2018-07-04 10:24 | PDOC.CMIN ---
Care Management Initial Assess REASON FOR HOSPITALIZATION:: Intractable Pain PAST MEDICAL HISTORY/PAST SURGICAL HISTORY:: AAA, ASCVD, COPD, HTN, IBS, GERD, CKD, Nava's esophagus, anxiety PREVIOUS FUNCTIONAL STATUS/SOCIAL/FAMILY SUPPORTS:: John resides in [place], [place] with his mother who he reports will be 96 in September and his brother, who is ten years younger than himself and helps care for his mother. John was independent at baseline but has been struggling the last few weeks with increased medical issues and was recently presented with new findings of metastatic cancer per MD. CURRENT FUNCTIONAL STATUS:: John is sitting in his chair after finishing a session with PT, he reports his pain is well managed at this time but was unmanageable prior to admission. He shares multiple concerns regarding his current medical status and is agreeable to Palliative Care Consult. ADVANCE DIRECTIVES:: None on file at [facility]-this will be attended to during PC consult. Has patient been provided with information about the portal?: Yes Did the patient sign up for the portal?: No CODE STATUS:: DNR/DNI INSURANCE COVERAGE / FINANCIAL ISSUES:: Medicare CURRENT HOME/COMMUNITY SERVICES/EQUIPMENT:: No current services or equipment at this time. PRIMARY CARE PHYSICIAN:: Fidelina Goodman POTENTIAL DISCHARGE NEEDS:: Palliative Care Consult, follow up appointments scheduled, PT evaluation. PATIENT/FAMILY EDUCATION NEEDS:: Review of discharge instruction, follow up appointments scheduled, patient education central to insurance limitations and patient assistance process. ANTICIPATED BARRIERS TO DISCHARGE:: None identified. TRANSPORTATION:: Via private vehicle with his brother. PLAN:: John will be monitored closely and his pain managed. He will have a Palliative Care consult with Dr. Gresham between [id number] to inform next steps in treatment and patient wishes as well as provide needed education around current disease process. CM will continue to support patient and support discharge planning considerations. Readmission - Within the Past 30 Days Yes or No: Y - Date of First Admission Date of 1st Admission: 06/16/18 - Date of this Admission Date of Admission: 07/03/18 This admission was: Through ED - Office Visit Since 1st Admission Have you seen your PCP in the office since discharge?: Yes Date of PCP Appointment: 06/23/18, 07/03/18 - ED visits How many ED visits in the past 12 months: 3 - Assessment for Readmission Summary of readmission circumstances, based upon interviews: John was admitted to [facility] for pneumonia on 06/16/18 after presenting to his PCP for pain in stomach two week history of diffuse abdominal pain with associated vomiting. Chest Xray at this time was positive for L upper lobe pneumonia per MD. He was also seen by PCP 06/05/18 for Chest Congestion. 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
--- NOTE | 2018-07-04 10:27 | IN_ITS ---
Date of service: 07/04/18 Time of Service: 10:13 PT Notes Date: 07/04/18 Referring Doctor: Bradley Lancaster PT Orders: PT CONSULT: a Precautions: standard precautions Patient Profile/Admitting Diagnosis: Pt is a 73yr old male admitted abdominal pain, lung mass and T6 vertebral body destructive lesion PMHX: chronic obstructive pulmonary disease, abdominal aortic aneurysm, arteriosclerotic cardiovascular disease, myocardial infarction, peripheral vascular disease, compression fracture, anxiety, chronic kidney disease, hypertension, hyperlipidemia, gastroesophageal reflux disease, Nava's Esophagus Social History/Home Situation: Lives in a house with his brother and 97year old mother with dementia, 2 steps with railing to enter, baseline mobility independent gait with no device, independent with ADLS. Equipment Owned/DME: none Subjective: Pt sitting in recliner chair, states he is scared, that he doesn't know what is going on with him and he was told he had Cancer. Pt wanting to talk with doctor about his diagnosis, wanting to talk with someone about his hospital bill. Objective: General Observation: 2 liters 02 NC Mental Status: A & Ox3 Pain: no c/o pain Bed Mobility/Transfers: Sit-stand: SBA with no device Stand-sit: SBA Gait: CGA with no device, 60ftx2, slow steady, step through gait pattern. Pt short of breath with exertion but able to carry on converstation using 2 liters 02 NC. Pt instructed in pacing and energy conservation techniques. Returned to chair in room after gait session. Balance: Static Sitting: normal Dynamic Sitting: normal Static Standing: Fair Dynamic Standing: Fair Special Tests: Mobility Limitations Standardized Measure [facility] AM-PAC 6 clicks Basic Mobility Inpatient Short Form: Raw Score: 18 Standardized Score: 43.63 CMS Score: 46.58% [facility] Modifier: CK Informed Consent/Education: Patient instructed in purpose of PT consult and plan of care. Assessment: Pt is a 73yr old male admitted abdominal pain, lung mass and T6 vertebral body destructive lesion, in setting of chronic obstructive pulmonary disease, abdominal aortic aneurysm, arteriosclerotic cardiovascular disease, myocardial infarction, peripheral vascular disease, compression fracture, anxiety. Pt presents with the following impairment level findings: shortness of breath with exertion requiring pacing and energy conservation with activity and 2 liters 02 NC, decreased strength and dynamic standing balance with transfers and gait compared to baseline. Pt is not in need of assistive device at this time but will benefit from short term gait and mobility training to assist return to fully independent, anticipate return to home setting at discharge. Impairments are contributing to the following functional limitations: AMPAC score CMS Score: 46.58% Patient is assessed as a Low 69514 complexity based on the following: History: see above Examination: see above Presentation: stable Decision Making: AMPAC score CMS Score: 46.58% Goals: 1. Supine-sit: independent 2. Sit-supine: independent 3. Sit-stand: independent 4. Stand-sit: independent 5. Bed-chair: supervision 6. Chair-bed: supervision 7. Gait: supervision with no device 200ft 8. Stairs: up/down 2 steps with railing, supervision Plan of Care/Treatment Plan: 1-2x/day, 7 days/week x 1 week BEAUTY SHOP MANAGER instructed in plan of care Initiate PT services for strengthening, bed mobility, transfers, gait and stair training, balance training, instruction in pacing and energy conservation techniques DISCHARGE RECOMMENDATIONS: Home TREATMENT CODE/TIME: 26 min IE 10:13 G Codes in the area mobility of walking and moving around: current status [id number] []; projected status GP [id number]-[]. Discharge status (if discharging) GP G8980 - AMPAC score CMS Score: 46.58% Sue Cm PT
--- NOTE | 2018-07-04 11:17 | INITIAL_ITS ---
Care Management Initial Assess REASON FOR HOSPITALIZATION:: Intractable Pain PAST MEDICAL HISTORY/PAST SURGICAL HISTORY:: AAA, ASCVD, COPD, HTN, IBS, GERD, CKD, Nava's esophagus, anxiety PREVIOUS FUNCTIONAL STATUS/SOCIAL/FAMILY SUPPORTS:: John resides in [place], [place] with his mother who he reports will be 96 in September and his brother , who is ten years younger than himself and helps care for his mother. John was independent at baseline but has been struggling the last few weeks with increased medical issues and was recently presented with new findings of metastatic cancer per MD. CURRENT FUNCTIONAL STATUS:: John is sitting in his chair after finishing a session with PT, he reports his pain is well managed at this time but was unmanageable prior to admission. He shares multiple concerns regarding his current medical status and is agreeable to Palliative Care Consult. ADVANCE DIRECTIVES:: None on file at [facility]-this will be attended to during PC consult. Has patient been provided with information about the portal?: Yes Did the patient sign up for the portal?: No CODE STATUS:: DNR/DNI INSURANCE COVERAGE / FINANCIAL ISSUES:: Medicare CURRENT HOME/COMMUNITY SERVICES/EQUIPMENT:: No current services or equipment at this time. PRIMARY CARE PHYSICIAN:: Fidelina Goodman POTENTIAL DISCHARGE NEEDS:: Palliative Care Consult, follow up appointments scheduled, PT evaluation. PATIENT/FAMILY EDUCATION NEEDS:: Review of discharge instruction, follow up appointments scheduled, patient education central to insurance limitations and patient assistance process. ANTICIPATED BARRIERS TO DISCHARGE:: None identified. TRANSPORTATION:: Via private vehicle with his brother. PLAN:: John will be monitored closely and his pain managed. He will have a Palliative Care consult with Dr. Gresham between [id number] to inform next steps in treatment and patient wishes as well as provide needed education around current disease process. CM will continue to support patient and support discharge planning considerations. Readmission - Within the Past 30 Days Yes or No: Y - Date of First Admission Date of 1st Admission: 06/16/18 - Date of this Admission Date of Admission: 07/03/18 This admission was: Through ED - Office Visit Since 1st Admission Have you seen your PCP in the office since discharge?: Yes Date of PCP Appointment: 06/23/18, 07/03/18 - ED visits How many ED visits in the past 12 months: 3 - Assessment for Readmission Summary of readmission circumstances, based upon interviews: John was admitted to [facility] for pneumonia on 06/16/18 after presenting to his PCP for pain in stomach two week history of diffuse abdominal pain with associated vomiting. Chest Xray at this time was positive for L upper lobe pneumonia per MD. He was also seen by PCP 06/05/18 for Chest Congestion. 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
--- NOTE | 2018-07-04 12:09 | PHARADMIT ---
Addendum entered by Shreya Caba 07/06/18 13:34: Pharmacy Note Subjective Objective Pain / this morning, BP 151/78, afebrile, on 1 liter oxygen w/Sats 94% lytes good, WBC up 12.24 Assessment Prednisone changed back to IV steroids (hence elevated WBC) no changed to BP meds Additional Fentanyl 12mcg patch added as a 1x order to the already 25mcg in place Plan oxygen adjustments being made May need patch removal for the 12mcg fentanyl patch, not sure what MD plans are although anticipate discharge home soon Original Note: Admission Pharmacy Clinical Review intractable pain (has Upper Lobe Mass (new) ) Code Status DNR/DNI Current Weight Wgt-73.5 kg Renally Cleared and Narrow Therapeutic Index Meds CrCl~ 67 mL/min Meds-OK QTc Value / Action Taken QTc-479 na BP Control, Fever BP-140/92 Tmax- 36.9C Electrolytes reviewed Na- 136 K+4.4 Mag-1.8 DVT Prophylaxis Lovenox 30mg ?? Opiate Usage / Scheduled Bowel Regimen Ordered Yes Yes Plt/SCr for Heparin / Enoxaparin Plts-289 SCr- 0.93 INR for Warfarin na H/H stable, WBC/Bands H&H- 10.9/34.1 WBC- 5.42 Antibiotic appropriateness none Cultures and Sensitivities none Surgical ABX d/c within 24 hr na DM control / Insulin Dosing BG-136 Heart Failure (Check EF%) (ALYSSIA's, B-Block, Diuretics) HCTZ, Lisinopril, Toprol-XL, NTG IV to PO Switch No Home Meds Reviewed Yes Home Meds Not Ordered Dexilant, (on Omeprazole) Comments Symbicort for Advair
[2018-07-04 13:10] VITALS: RESP 38
--- NOTE | 2018-07-04 15:16 | PT.INTREAT ---
Date of service: 07/04/18 Time of Service: 15:16 PT Notes Inpatient Physical Therapy Treatment Note Date: 07/04/18 PRECAUTIONS: Fall SUBJECTIVE: Ray reports that he could be better although he feels okay at the moment. OBJECTIVE: PAIN: No c/o pain BED MOBILITY/TRANSFERS Sit-stand: S Stand-sit: S GAIT Assistive Device: No AD Weight bearing: Full Assist: SBA Distance: 120' x2 Deviation: Path deviation to the left, self-corrected STAIRS: Up/down 3x4 and 2x6 using B rails and a step-over pattern independently. ASSESSMENT: Patient tolerated session without complaint. He was able to tolerate a progression in gait distance although demonstrates path deviation to the left, self-corrected. PLAN: Continue with PT's POC TREATMENT CODE/TIME: 23 minutes; TAx2
--- NOTE | 2018-07-04 16:28 | W.PM.PROGNOT ---
Date of Service Date of service: 07/04/18 Time of Service: 18:48 Assessment and Plan (1) Lung mass: Current visit: Yes Status: Acute Previously thought to be Pneumonia by CXR, treated with one week of antibiotic therapy, confirmed as lung mass highly suspicious for malignancy. Care Management discussed patient with interventional pulmonology at [facility] - he will be receiving a call following discharge from Dr. Cerda's office to schedule for appointment. Oncology also aware and will schedule patient once tissue biopsy and pathology are available. (2) Abdominal pain: Current visit: Yes Status: Acute Ongoing for some time, previously described as intermittent, mild, achy upper abdominal pain of a few weeks' duration. Etiology very likely on the basis of T6 vertebral body destructive lesion, as described by patient with a band-like area of pain across the epigastrium. Plan will be for pain control - initiated on Duragesic patch, with oral MSIR for mild to moderate pain and IV Dilaudid for severe pain. Currently reports improvement in symptoms. Ensure bowel regimen as well. (3) GERD (gastroesophageal reflux disease): Current visit: No Status: None Continue PPI therapy. (4) Chronic obstructive pulmonary disease (COPD): Current visit: No Status: Chronic With current wheezing. Continue home inhalers, initiated IV Steroids, and maintain on nebs. Appears improved today. (5) HTN (hypertension): Current visit: No Status: None Continue thiazide, ALYSSIA-I, and BB with hold parameters. (6) ASCVD (arteriosclerotic cardiovascular disease): Current visit: No Status: Chronic History of prior stent placement. Appears quiescent. BB on hold. Continue ASA, statin. (7) Chronic kidney disease (CKD), stage III (moderate): Current visit: No Status: Chronic Creatinine higher than last checked, but appears at baseline. Monitor. (8) Abdominal aortic aneurysm (AAA): Current visit: No Status: Chronic 4.9 cm aortic aneurysm by ultrasound 12/05/2015, confirmed stable by CT 06/2018. (9) DVT prophylaxis: Current visit: No Status: Acute Renally dosed SC Lovenox. (10) Advance directive discussed with patient: Current visit: Yes Status: Acute DNR/DNI per discussion at time of admission. Subjective Interval history since last seen: 73-year-old man with a past medical history significant for stable AAA, CAD with history of NH and stent placement, and recent hospitalization and treatment for pneumonia, admitted from [facility] Emergency Department on 07/03 with a new diagnosis of PAU lung mass with a destructive, likely metastatic lesion to T6. Mr. Segal has a past history of CAD s/p stents, stable AAA, COPD, GERD with a diagnosis of Nava's esophagus, IBS, HTN, and chronic kidney disease. He initially presented to the ED on 06/16/18 with a 2 week history of diffuse abdominal pain and vomiting. In the ED, he had a noncontrast abdominal CT scan which showed a stable 4.5 cm infrarenal abdominal aortic aneurysm, with no acute process. Chest x-ray revealed a Left upper lobe opacity suspicious for pneumonia. He also reported a cough and some shortness of breath with activity. A follow up x-ray was recommended to document complete resolution of the left upper lobe infiltrate, and recommended at time of discharge. He was maintained on antibiotic therapy with subjective improvement from a respiratory standpoint. He did continue to have some abdominal pain, with negative work up that included normal lipase, LFT's, and imaging - his PPI was increased to twice daily dosing and his abdominal pain markedly improved at time of dishcarge. The patient presents back to the ED today with complaint of continued upper abdominal pain, complaining that it had been keeping him awake. He was evaluated in the ED with a CT of the chest and abdomen that showed the PAU process previously thought to be pneumonia to be a spiculated PAU lung mass highly suspicious for malignancy. He also had apparent destructive lesion of the T6 vertebral body suspicious for a bony met as potential explanation for the banding epigastric pain. Mr. Segal was referred for admission for pain control. He was initiated on a duragesic patch and with prn pain medication, today reports vast improvement in overall symptoms. Palliative care was also consulted. Exam Narrative Exam Narrative: General: Patient appears uncomfortable but not acutely distressed, AAOX3. Pleasant and cooperative. Neck: Supple CV: Regular, not tachycardic, S1S2, No rubs, murmurs, or gallops. Pulmonary: diffuse but mild wheezing improved Abdomen: + Bowel Sounds, soft, nontender, nondistended Vascular: No lower extremity edema Psych: Normal mood and affect. Objective Objective Clinical Data: Abnormal lab results 07/04/18 07/04/18 Range/Units 06:05 06:05 RBC 3.64 L (4.50-6.00) m/cumm Hgb 10.9 L D (13.5-17.5) g/dL Hct 34.1 L D (40.0-50.0) % Absolute Lymphocytes 0.36 L (1.2-3.4) k/cumm Absolute Monocytes 0.08 L (0.11-0.7) k/cumm BUN 26 H (7-18) mg/dL Glucose 136 H (70-100) mg/dL Vital Signs Temperature 36.9 C 07/04/18 07:50 Temperature Source Tympanic 07/04/18 07:50 Pulse 78 07/04/18 07:50 Pulse Rhythm Regular 07/04/18 13:12 Pulse 90 07/03/18 19:20 Respiratory Rate 38 H 07/04/18 13:10 Respiratory Effort Incrsd Work of Breathing 07/04/18 13:12 Respiratory Depth Shallow 07/04/18 13:12 Respiratory Pattern Tachypnea 07/04/18 13:12 Blood Pressure 140/92 H 07/04/18 07:50 Blood Pressure Mean 82 07/03/18 19:01 Blood Pressure Position Sitting 07/03/18 11:38 Pulse Oximetry 96 07/04/18 07:50 Oxygen Delivery Method Nasal Cannula 07/04/18 07:50 Oxygen Flow Rate 2 07/04/18 07:50 Pain Level 2 07/03/18 21:09 Intake & Output 07/03/18 07/04/18 07/04/18 23:59 11:59 23:59 Intake Total 250 / 250 1500 / 1500 Output Total 225 / 225 350 / 350 200 / 200 Balance -225 / -225 -100 / -100 1300 / 1300 Weight 73.527 kg Intake: IV 1000 / 1000 Oral 250 / 250 500 / 500 Output: Urine 225 / 225 350 / 350 200 / 200 Other: Urine Color Pale Dark Lois Yellow Urine Appearance Clear Clear Clear Urine Odor Normal Normal Voiding Methods Toilet Urinal Laboratory Results WBC 5.42 k/cumm (4.4-10.8) D 07/04/18 06:05 RBC 3.64 m/cumm (4.50-6.00) L 07/04/18 06:05 Hgb 10.9 g/dL (13.5-17.5) L D 07/04/18 06:05 Hct 34.1 % (40.0-50.0) L D 07/04/18 06:05 MCV 93.7 fL (80-95) 07/04/18 06:05 MCH 29.9 pg (27.0-33.0) 07/04/18 06:05 MCHC 32.0 g/dL (32.0-36.0) 07/04/18 06:05 RDW 13.2 % (11.8-14.1) 07/04/18 06:05 Plt Count 289 x1000/uL (130-400) D 07/04/18 06:05 MPV 10.1 fL (8.0-11.0) 07/04/18 06:05 Immature Gran % 0.2 07/04/18 06:05 Neutrophils % 91.7 07/04/18 06:05 Lymphocytes % 6.6 07/04/18 06:05 Monocytes % 1.5 07/04/18 06:05 Eosinophils % 0.0 07/04/18 06:05 Basophils % 0.0 07/04/18 06:05 Absolute Neutrophils 4.97 k/cumm (1.2-6.7) 07/04/18 06:05 Absolute Lymphocytes 0.36 k/cumm (1.2-3.4) L 07/04/18 06:05 Absolute Monocytes 0.08 k/cumm (0.11-0.7) L 07/04/18 06:05 Absolute Eosinophils 0.00 k/cumm (0.0-0.7) 07/04/18 06:05 Absolute Basophils 0.00 k/cumm (0.0-0.2) 07/04/18 06:05 Sodium 136 mmol/L (136-145) 07/04/18 06:05 Potassium 4.4 mmol/L (3.5-5.1) D 07/04/18 06:05 Chloride 102 mmol/L (98-107) 07/04/18 06:05 Carbon Dioxide 26.8 mmol/L (21.0-32.0) 07/04/18 06:05 Anion Gap 7.2 mmol/L (3-11) 07/04/18 06:05 BUN 26 mg/dL (7-18) H 07/04/18 06:05 Creatinine 0.93 mg/dL (0.70-1.30) 07/04/18 06:05 Estimated GFR/1.73 m2 >= 60.00 (mL/min/1.73m2) 07/04/18 06:05 Glucose 136 mg/dL (70-100) H 07/04/18 06:05 Lactate 2.8 mmol/L (0.6-1.4) H* 07/03/18 12:20 Calcium 9.3 mg/dL (8.5-10.1) 07/04/18 06:05 Magnesium 1.8 mg/dL (1.8-2.4) 07/04/18 06:05 Total Bilirubin 0.7 mg/dL (0.2-1.0) 07/03/18 12:20 AST 35 U/L (15-37) 07/03/18 12:20 ALT 33 U/L (12-78) 07/03/18 12:20 Alkaline Phosphatase 143 U/L (46-116) H 07/03/18 12:20 Troponin I 0.04 ng/mL (0.00-0.06) 07/03/18 12:20 Total Protein 8.6 g/dL (6.4-8.2) H 07/03/18 12:20 Albumin 3.6 g/dL (3.4-5.0) 07/03/18 12:20 Lipase 391 U/L (73-393) 07/03/18 12:20 Patient ABO/Rh A Negative 07/03/18 12:20 Antibody Screen Negative 07/03/18 12:20
[2018-07-04 17:51] VITALS: BP 145/71; PULSE 64; RESP 19; TEMP 36.2; O2SAT 97
--- NOTE | 2018-07-04 17:52 | CHAPLAIN ---
John was sitting up in his chair when I visited. He told me he received good news today and that he needs to go to [facility] to have a spot on his lung checked out but he said he was told by staff not to worry about it. He added that he is having a hard not time not worrying about it. He did seem relieved however to be told not to worry. John and his brother care for their mom at home so John said he will need to find transportation to [facility]. I suggested he check with his care nurse rn about options for that. John shared some personal history, telling me about working at [employer] for many years. He said he has a daughter and a sister who live nearby but they do not help care for his mother at all.
[2018-07-04] MEDS: Atorvastatin 20 MG TAB PO (20:17)
[2018-07-04] MEDS: Normal Saline Flush 10 ML SYR ×2 (20:18→20:19)
[2018-07-04 20:50] VITALS: BP 135/62; PULSE 63; RESP 22; TEMP 36.8; O2SAT 98
[2018-07-04] MEDS: Senna TAB 2 TAB PO (21:07)
[2018-07-04] MEDS: Enoxaparin 30 MG/0.3 ML SYR SC (21:07)
[2018-07-05] MEDS: Omeprazole 20 MG CAPCR 40 MG PO ×2 (07:27→19:36)
[2018-07-05] MEDS: Metoprolol CR 100 MG TABCR PO (07:27)
[2018-07-05] MEDS: methylPREDNISolone SUCC 40 MG VIAL IVP (07:27)
[2018-07-05] MEDS: Loratidine 10 MG TAB PO (07:27)
[2018-07-05] MEDS: Aspirin E.C. 81 MG TABEC PO (07:27)
[2018-07-05] MEDS: Lisinopril 20 MG TAB PO (07:27)
[2018-07-05] MEDS: Normal Saline Flush 10 ML SYR IVP (07:27)
[2018-07-05] MEDS: Docusate Sodium 100 MG CAP PO ×2 (07:27→19:37)
[2018-07-05] MEDS: Budesonide/Formoterol 160/4.5 6 GM 60 PUFF INH IH ×2 (07:35→19:39)
[2018-07-05] MEDS: Umeclidinium 7 CAP INHALER 1 CAP IH (07:36)
[2018-07-05 07:42] VITALS: BP 125/60; PULSE 65; RESP 23; TEMP 36.4; O2SAT 96
[2018-07-05 07:58] LABS: Abs Immature Grans 0.01 k/cumm (0.0-0.09); Absolute Lymphocyte Count 0.64 k/cumm (1.2-3.4); Absolute Monocyte Count 0.36 k/cumm (0.11-0.7); HCT 34.1 % (40.0-50.0); HGB 11.1 g/dL (13.5-17.5); Immature Grans % 0.1; Lymphocytes % 8.6; Mean Corp. HGB Concentration 32.6 g/dL (32.0-36.0); Mean Corpuscular Hemoglobin 30.2 pg (27.0-33.0); Mean Corpuscular Volume 92.7 fL (80-95); Mean Platelet Volume 10.1 fL (8.0-11.0); Monocytes % 4.8; Neutrophils % 86.5; Platelet Count 324 x1000/uL (130-400); RBC 3.68 m/cumm (4.50-6.00); RBC Distribution Width 13.2 % (11.8-14.1); White Blood Cell Count 7.43 k/cumm (4.4-10.8)
[2018-07-05 08:00] LABS: Anion Gap 4.9 mmol/L (3-11); BUN 30 mg/dL (7-18); CO2 28.1 mmol/L (21.0-32.0); CREATININE 0.87 mg/dL (0.70-1.30); Calcium 9.6 mg/dL (8.5-10.1); Chloride 100 mmol/L (98-107); Glucose 139 mg/dL (70-100); Magnesium 1.8 mg/dL (1.8-2.4); Potassium 4.5 mmol/L (3.5-5.1); Sodium 133 mmol/L (136-145)
[2018-07-05 08:05] LABS: Absolute Neutrophil Count 6.43 k/cumm (1.2-6.7)
--- NOTE | 2018-07-05 10:12 | PT.INNT ---
Date of service: 07/05/18 Time of Service: 10:12 PT Notes 07/05/18 Pt is reports that he is having discomfort and would not like to participate in PT today and will try tomorrow.
--- NOTE | 2018-07-05 13:51 | CMPROGNOTE_ITS ---
- If Service Date Differs Date of service: 07/05/18 Time of Service: 13:49 Care Management Progress Note S/O: CM met with John whom was sitting in his chair this morning. John stated to this writer editor I want to know about my appointment on Saturday, I just want it out. CM inquired regarding the appointment on Saturday, John states that he cannot remember who spoke of this appointment to him. CM notified Dr. Nava whom states that she will look into this today. CM did fax information to [facility] in regards to an oncology/form carpenter appointment, however [facility] had stated that they would contact John in regards to an appointment. A: 73 y/o male admitted 06/23/18 with intractable pain. P: John will return home when medically cleared. He will have no services and will F/U with PCP, as well as [facility] at time of DC. Family to transport when ready.
--- NOTE | 2018-07-05 15:11 | PCNE_ITS ---
Date of service: 07/04/18 History of Present Illness Chief Complaint: new PAU lung mass; destructive lesion T6; +LN Narrative: Remy is a 73 yo simple man who lives with his brother and mother. He and his brother are their mother's caregiver. She is 96 with advanced dementia. He tells me that he didn't feel well now for more than a month. He went to the ER on 06/16 and was told her had pneumonia. He took the antibiotics as the doctor told him to. He still didn't feel better. He is a very vague historian. He said he didn't have any fevers. He didn't cough up blood. He has been losing weight without meaning to. He's lost about 10 pounds in the last month or two. He says his energy is good. He stays active. He has to take care of his mother. He says he doesn't cough much but he does have a hard time breathing. He points to his left upper chest and he says If feels heavy inside. He has not had back pain despite his T6 lesion. He is not a complainer. Consults Consult date: 07/04/18 Requesting physician: Bradley Lancaster Assessment and Plan (1) Advance directive discussed with patient: Current visit: Yes Status: Acute Remy is eager to proceed with bronchoscopy and biopsy of his lung lesion. He understands that this is likely lung cancer. He had a hard time understanding that his spine at T6 likely has lung cancer in it that spread. This is hard for him to understand. He does have some pain in his PAU, or heaviness as he explains it. He wants to be FULL CODE and to proceed with full work-up and treatment. (2) Lung mass: Current visit: Yes Status: Acute Needs referral for biopsy. Discussed with Dr. Lancaster and with Remy's PCP office. They will try to expedite this for Remy as he is very anxious about it. Likely cancer. Explained that even though he stopped smoking, his lungs are still affected by his 50+ years of smoking. We reviewed his CT scan report and I gave him a copy of it. (3) Metastatic cancer to spine: Current visit: Yes Status: Acute No significant pain to his spine. Review of Systems Constitutional Reports malaise and Reports weight loss Eyes Reports requires corrective lenses ENT Reports abnormal hearing Cardiovascular Reports lightheadedness, Reports dyspnea and Reports dyspnea on exertion Comments: Ray reports he had a big heart attack a few years back. That's when he stopped smoking. Respiratory Reports chest congestion, Reports pain on inspiration, Reports dyspnea and Reports dyspnea on exertion Gastrointestinal Reports early satiety Genitourinary Reports urinary hesitancy Musculoskeletal Comments: chest pain, not like his heart attack, PAU area Neurologic Reports abnormal hearing and Reports memory loss Psychiatric Reports difficulty concentrating and Reports memory loss PFSH Lung mass (Acute) Abdominal pain (Acute) Headache HLD (hyperlipidemia) GERD (gastroesophageal reflux disease) HTN (hypertension) IBS (irritable bowel syndrome) (Chronic) ASCVD (arteriosclerotic cardiovascular disease) (Chronic 03/04/13) Essential hypertension (Chronic 03/04/13) PVD (peripheral vascular disease) (Chronic 04/08/15) Hyperlipidemia, unspecified (Chronic 03/04/13) Gastroesophageal reflux disease (Chronic 10/02/11) Compression fracture of vertebral column (Resolved 10/02/11) Chronic obstructive pulmonary disease (COPD) (Chronic 10/02/11) Chronic kidney disease (CKD), stage III (moderate) (Chronic 09/23/13) 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 Father Myocardial infarction Coronary Stent (08/05/06) Repair of inguinal hernia Trigger Finger release (05/06/16) Family History Mother Dementia Father Myocardial infarction Medical History Lung mass (Acute) Abdominal pain (Acute) Headache HLD (hyperlipidemia) GERD (gastroesophageal reflux disease) HTN (hypertension) IBS (irritable bowel syndrome) (Chronic) ASCVD (arteriosclerotic cardiovascular disease) (Chronic 03/04/13) Essential hypertension (Chronic 03/04/13) PVD (peripheral vascular disease) (Chronic 04/08/15) Hyperlipidemia, unspecified (Chronic 03/04/13) Gastroesophageal reflux disease (Chronic 10/02/11) Compression fracture of vertebral column (Resolved 10/02/11) Chronic obstructive pulmonary disease (COPD) (Chronic 10/02/11) Chronic kidney disease (CKD), stage III (moderate) (Chronic 09/23/13) 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) Anxiety (Chronic 10/02/11) Abdominal aortic aneurysm (AAA) (Chronic 10/02/11) Hypercalcemia (Resolved 07/19/16) 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) Social History caregiver/support person: Yes household members: family housing: house marital status: single lives independently: No number of children: 0 mcc: No current occupational status: retired well-balanced diet: about half the time high-fat food intake: 2 times daily daily servings fruits/ve-1 daily servings of milk/calcium: 2-4 eating out: rarely or never reads food labels: seldom or never during the past year weight has: decreased > 10 lbs Smoking/Tobacco Use Status: Former Tobacco Use additional social history: He lives with his brother and 97-year-old mother who has severe dementia. 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 He states he quit smoking and drinking several years ago. Surgical History Coronary Stent (08/05/06) Repair of inguinal hernia Trigger Finger release (05/06/16) Social History caregiver/support person: Yes household members: family housing: house marital status: single lives independently: No number of children: 0 mcc: No current occupational status: retired well-balanced diet: about half the time high-fat food intake: 2 times daily daily servings fruits/ve-1 daily servings of milk/calcium: 2-4 eating out: rarely or never reads food labels: seldom or never during the past year weight has: decreased > 10 lbs Smoking/Tobacco Use Status: Former Tobacco Use additional social history: He lives with his brother and 97-year-old mother who has severe dementia. 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 He states he quit smoking and drinking several years ago. Exam Const General: cooperative, healthy appearing and anxious Nutritional Appearance: average body habitus Orientation: alert and awake HENMT Head: normocephalic and atraumatic Mouth: oral mucosae normal Eyes Conjunctivae: conjunctivae normal Sclera: sclerae normal Pupils: PERRL Neck Neck: no lymphadenopathy Thyroid: thyroid normal Resp Effort & Inspection: normal respiratory effort and able to speak in complete sentences Auscultation: clear to auscultation bilaterally and diminished lung sounds Other: he does say he has pain when I palpate his EJ chest Cardio Jugular venous pressure: no JVD Rate: regular rate Rhythm: regular rhythm Heart Sounds: S1 normal and S2 normal GI Palpation: soft Auscultation: normal bowel sounds Back/Spine/Pelvis Back: other (no tenderness, even to palpation of T6) Neuro General: alert, awake, gait normal and confused Cognition: abnormal cognition (he is quite anxious about his new diagnosis; needs things explained slowly, simply, repeatedly; wants to understand ) Speech: speech normal Gait: normal gait Extrem General: clubbing Psych Appearance: grossly normal Mental Status: mental status grossly normal Speech and Movement: delayed speech Mood: anxious mood Affect: anxious affect Attitude: cooperative Thought Process: illogical, impoverished and perseverating Insight: fair Judgment: fair Results Last Vital Signs Temp 97.5 F L 07/05/18 07:42 Pulse 65 07/05/18 07:42 Resp 23 07/05/18 07:42 BP 125/60 07/05/18 07:42 Pulse Ox 96 07/05/18 07:42 Labs : 07/05/18 06:30 07/05/18 06:30 Laboratory Results - last 24 hr 07/05/18 07/05/18 06:30 06:30 WBC 7.43 D RBC 3.68 L Hgb 11.1 L Hct 34.1 L MCV 92.7 MCH 30.2 MCHC 32.6 RDW 13.2 Plt Count 324 MPV 10.1 Immature Gran % 0.1 Neutrophils % 86.5 Lymphocytes % 8.6 Monocytes % 4.8 Eosinophils % 0.0 Basophils % 0.0 Absolute Neutrophils 6.43 Absolute Lymphocytes 0.64 L Absolute Monocytes 0.36 Absolute Eosinophils 0.00 Absolute Basophils 0.00 Sodium 133 L Potassium 4.5 Chloride 100 Carbon Dioxide 28.1 Anion Gap 4.9 BUN 30 H Creatinine 0.87 Estimated GFR/1.73 m2 >= 60.00 Glucose 139 H Calcium 9.6 Magnesium 1.8
[2018-07-05 15:45] VITALS: RESP 36
[2018-07-05 16:01] VITALS: BP 129/59; PULSE 67; RESP 25; TEMP 37.1; O2SAT 96
--- NOTE | 2018-07-05 16:42 | PGE_ITS ---
Date of Service Date of service: 07/05/18 Time of Service: 16:39 Assessment and Plan (1) Lung mass: Current visit: Yes Status: Acute Will follow up with pulmonary and Hem/onc at [facility] as outpatient. (2) Metastatic cancer to spine: Current visit: Yes Status: Acute The abdominal pain is likely radiculopathy due to his vertebral met. Pain control is adequate with PO meds - d/c IV meds. (3) Abdominal aortic aneurysm (AAA): Current visit: No Status: Chronic Stable. Follow up as outpatient. (4) Chronic kidney disease (CKD), stage III (moderate): Current visit: No Status: Chronic Repeat bloodwork in am. Received IV contrast on 07/03. (5) Chronic obstructive pulmonary disease (COPD): Current visit: No Status: Chronic Appears to be improved. Steroids transitioned to PO today. Ambulate with pulse ox to ensure that the patient does not require oxygen on discharge. (6) ASCVD (arteriosclerotic cardiovascular disease): Current visit: No Status: Chronic History of prior stent placement. Stable. Continue asa, statin. BB on hold. (7) Abdominal pain: Current visit: Yes Status: Acute Read discussion re spinal lesion above. (8) DVT prophylaxis: Current visit: No Status: Acute Lovenox (9) GERD (gastroesophageal reflux disease): Current visit: No Status: None Continue PPI therapy. (10) HTN (hypertension): Current visit: No Status: None Continue thiazide, ALYSSIA-I, and BB with hold parameters. (11) Discharge planning issues: Current visit: Yes Status: Acute DNR, DNI. Interested in working with pulmonary and hem/onc to find out his options. Likely discharge home tomorrow. May require oxygen. Subjective Interval history since last seen: Feels a little bit better - did not require any IV pain meds today. Excited to hear he can likely go home tomorrow. Denies dizziness, chest pain, nausea, vomiting. Breathing is ok. Epigastric pain in better. Back pain is little. Exam Narrative Exam Narrative: General: Elderly male, sitting comfortably in a chair , mildly tachypneic but seemingly unaware of it. HEENT: EOMI, wearing nasal canula Heart: RRR, no m/r/g Lungs: Diminished breath sounds B. Wheezing I hear when I am talking to the patient I can't hear on auscultation of his lungs. GI: abdomen soft, minimally tender in epigastrium, nondistended Extremities: 2+B foot and ankle edema. Purplish discoloration of RLE improves with elevation. Objective Objective Clinical Data: Abnormal lab results 07/05/18 07/05/18 Range/Units 06:30 06:30 RBC 3.68 L (4.50-6.00) m/cumm Hgb 11.1 L (13.5-17.5) g/dL Hct 34.1 L (40.0-50.0) % Absolute Lymphocytes 0.64 L (1.2-3.4) k/cumm Sodium 133 L (136-145) mmol/L BUN 30 H (7-18) mg/dL Glucose 139 H (70-100) mg/dL Vital Signs Temperature 37.1 C 07/05/18 16:01 Temperature Source Tympanic 07/05/18 16:01 Pulse 67 07/05/18 16:01 Pulse Rhythm Regular 07/05/18 15:45 Pulse 90 07/03/18 19:20 Respiratory Rate 25 H 07/05/18 16:01 Respiratory Effort Incrsd Work of Breathing 07/05/18 15:45 Respiratory Depth Shallow 07/05/18 15:45 Respiratory Pattern Tachypnea 07/05/18 15:45 Blood Pressure 129/59 L 07/05/18 16:01 Blood Pressure Mean 82 07/03/18 19:01 Blood Pressure Position Sitting 07/03/18 11:38 Pulse Oximetry 96 07/05/18 16:01 Oxygen Delivery Method Nasal Cannula 07/05/18 16:01 Oxygen Flow Rate 2 07/05/18 16:01 Pain Level 5 07/05/18 08:35 Comment 07/05/18 07:42 Intake & Output 07/04/18 07/05/18 07/05/18 23:59 11:59 23:59 Intake Total 1920 / 1920 250 / 250 600 / 600 Output Total 480 / 480 950 / 950 150 / 150 Balance 1440 / 1440 -700 / -700 450 / 450 Intake: IV 1000 / 1000 Oral 920 / 920 250 / 250 600 / 600 Output: Urine 480 / 480 950 / 950 150 / 150 Other: Urine Color Yellow Yellow Yellow Urine Appearance Clear Clear Clear Urine Odor Normal Normal None Voiding Methods Urinal Urinal Urinal Laboratory Results WBC 7.43 k/cumm (4.4-10.8) D 07/05/18 06:30 RBC 3.68 m/cumm (4.50-6.00) L 07/05/18 06:30 Hgb 11.1 g/dL (13.5-17.5) L 07/05/18 06:30 Hct 34.1 % (40.0-50.0) L 07/05/18 06:30 MCV 92.7 fL (80-95) 07/05/18 06:30 MCH 30.2 pg (27.0-33.0) 07/05/18 06:30 MCHC 32.6 g/dL (32.0-36.0) 07/05/18 06:30 RDW 13.2 % (11.8-14.1) 07/05/18 06:30 Plt Count 324 x1000/uL (130-400) 07/05/18 06:30 MPV 10.1 fL (8.0-11.0) 07/05/18 06:30 Immature Gran % 0.1 07/05/18 06:30 Neutrophils % 86.5 07/05/18 06:30 Lymphocytes % 8.6 07/05/18 06:30 Monocytes % 4.8 07/05/18 06:30 Eosinophils % 0.0 07/05/18 06:30 Basophils % 0.0 07/05/18 06:30 Absolute Neutrophils 6.43 k/cumm (1.2-6.7) 07/05/18 06:30 Absolute Lymphocytes 0.64 k/cumm (1.2-3.4) L 07/05/18 06:30 Absolute Monocytes 0.36 k/cumm (0.11-0.7) 07/05/18 06:30 Absolute Eosinophils 0.00 k/cumm (0.0-0.7) 07/05/18 06:30 Absolute Basophils 0.00 k/cumm (0.0-0.2) 07/05/18 06:30 Sodium 133 mmol/L (136-145) L 07/05/18 06:30 Potassium 4.5 mmol/L (3.5-5.1) 07/05/18 06:30 Chloride 100 mmol/L (98-107) 07/05/18 06:30 Carbon Dioxide 28.1 mmol/L (21.0-32.0) 07/05/18 06:30 Anion Gap 4.9 mmol/L (3-11) 07/05/18 06:30 BUN 30 mg/dL (7-18) H 07/05/18 06:30 Creatinine 0.87 mg/dL (0.70-1.30) 07/05/18 06:30 Estimated GFR/1.73 m2 >= 60.00 (mL/min/1.73m2) 07/05/18 06:30 Glucose 139 mg/dL (70-100) H 07/05/18 06:30 Lactate 2.8 mmol/L (0.6-1.4) H* 07/03/18 12:20 Calcium 9.6 mg/dL (8.5-10.1) 07/05/18 06:30 Magnesium 1.8 mg/dL (1.8-2.4) 07/05/18 06:30 Total Bilirubin 0.7 mg/dL (0.2-1.0) 07/03/18 12:20 AST 35 U/L (15-37) 07/03/18 12:20 ALT 33 U/L (12-78) 07/03/18 12:20 Alkaline Phosphatase 143 U/L (46-116) H 07/03/18 12:20 Troponin I 0.04 ng/mL (0.00-0.06) 07/03/18 12:20 Total Protein 8.6 g/dL (6.4-8.2) H 07/03/18 12:20 Albumin 3.6 g/dL (3.4-5.0) 07/03/18 12:20 Lipase 391 U/L (73-393) 07/03/18 12:20 Patient ABO/Rh A Negative 07/03/18 12:20 Antibody Screen Negative 07/03/18 12:20
[2018-07-05] MEDS: Furosemide 20 MG TAB PO (16:59)
[2018-07-05 18:06] VITALS: PULSE 65; PULSE 77; PULSE 80; O2SAT 82; O2SAT 89; O2SAT 93
[2018-07-05] MEDS: Atorvastatin 20 MG TAB PO (19:36)
[2018-07-05] MEDS: Senna TAB 2 TAB PO (19:37)
[2018-07-05] MEDS: predniSONE 20 MG TAB 40 MG PO (19:38)
[2018-07-05] MEDS: Enoxaparin 30 MG/0.3 ML SYR SC (19:40)
[2018-07-05 20:21] VITALS: BP 137/73; PULSE 62; RESP 24; TEMP 36.8; O2SAT 94
[2018-07-06] VITALS (8 sets, daily range): BP systolic 93–151; BP diastolic 63–80; PULSE 54–74; RESP 4–26; TEMP 36–36.5; O2SAT 93–98
[2018-07-06] MEDS: Budesonide/Formoterol 160/4.5 6 GM 60 PUFF INH IH ×2 (07:20→19:56)
[2018-07-06] MEDS: Umeclidinium 7 CAP INHALER 1 CAP IH (07:20)
[2018-07-06] MEDS: Albuterol/Ipratropium 3 ML UPD VIAL UPD ×2 (07:28→11:15)
[2018-07-06] MEDS: Aspirin E.C. 81 MG TABEC PO (08:01)
[2018-07-06] MEDS: Loratidine 10 MG TAB PO (08:01)
[2018-07-06] MEDS: Docusate Sodium 100 MG CAP PO ×3 (08:01→19:56)
[2018-07-06] MEDS: predniSONE 20 MG TAB 40 MG PO (08:01)
[2018-07-06] MEDS: Omeprazole 20 MG CAPCR 40 MG PO ×2 (08:02→19:56)
[2018-07-06] MEDS: Furosemide 20 MG TAB PO (08:02)
[2018-07-06] MEDS: Lisinopril 20 MG TAB PO (08:02)
[2018-07-06] MEDS: Metoprolol CR 100 MG TABCR PO (08:02)
[2018-07-06 09:19] LABS: Abs Immature Grans 0.07 k/cumm (0.0-0.09); Absolute Lymphocyte Count 0.92 k/cumm (1.2-3.4); Eosinophils % 0.8; HCT 41.9 % (40.0-50.0); HGB 13.7 g/dL (13.5-17.5); Immature Grans % 0.6; Lymphocytes % 7.5; Mean Corp. HGB Concentration 32.7 g/dL (32.0-36.0); Mean Corpuscular Hemoglobin 29.5 pg (27.0-33.0); Mean Corpuscular Volume 90.3 fL (80-95); Mean Platelet Volume 10.5 fL (8.0-11.0); Monocytes % 6.5; Neutrophils % 84.6; Platelet Count 284 x1000/uL (130-400); RBC 4.64 m/cumm (4.50-6.00); RBC Distribution Width 13.1 % (11.8-14.1); White Blood Cell Count 12.24 k/cumm (4.4-10.8)
[2018-07-06 09:20] LABS: Absolute Neutrophil Count 10.36 k/cumm (1.2-6.7)
--- NOTE | 2018-07-06 09:45 | PT.INTREAT ---
Date of service: 07/06/18 Time of Service: 09:45 PT Notes Inpatient Physical Therapy Treatment Note Date: 07/06/18 PRECAUTIONS:Fall precautions SUBJECTIVE: Pt reports that he is concerned and scared about his new diagnosis. He states that he is experiencing discomfort on his left side where the mass is and he even has discomfort in his left leg as well. Pt reports of back pain as well. OBJECTIVE: BED MOBILITY/TRANSFERS Sit-stand: SBA Stand-sit: SBA GAIT Assistive Device: No AD Weight bearing: Full Assist: CGA Distance: 150ft VITALS: 95% oxygen. Pt completed his ambulkation with 2L of oxygen THEREX: Pt completed UE and LE ther ex as per flow sheet while seated in the chair. ASSESSMENT: Pt tolerated today's session well. Pt was somewhat SOB and wheezing but very motivated for his session today. PLAN: Pt reports that he is going to be discharged today and his brother is picking him up to take him home. TREATMENT CODE/TIME: 9:15-9:30 (15) BEATRICE
[2018-07-06] MEDS: fentaNYL 12 MCG PATCH TD (09:52)
--- NOTE | 2018-07-06 11:19 | PGE_ITS ---
Date of Service Date of service: 07/06/18 Time of Service: 09:45 Assessment and Plan (1) Lung mass: Current visit: Yes Status: Acute Will follow up with pulmonary and Hem/onc at [facility] as outpatient. (2) Metastatic cancer to spine: Current visit: Yes Status: Acute with radiculopathy due to his vertebral met causing abdominal pain. Increase fentanyl patch today. (3) Abdominal aortic aneurysm (AAA): Current visit: No Status: Chronic Stable. Follow up as outpatient. (4) Chronic kidney disease (CKD), stage III (moderate): Current visit: No Status: Chronic BMP continues to be reported as pending this am. Will follow up. (5) Chronic obstructive pulmonary disease (COPD): Current visit: No Status: Chronic In acute exacerbation with hypoxia. As the patient ideally wants to go home without oxygen, I have increased his steroid dose today to see if we can get him over the hump. However, I told the patient that he may still require O2. Will monitor ambulatory pulse ox. (6) ASCVD (arteriosclerotic cardiovascular disease): Current visit: No Status: Chronic History of prior stent placement. Stable. Continue asa, statin. BB on hold. (7) Abdominal pain: Current visit: Yes Status: Acute Read discussion re spinal lesion above. (8) DVT prophylaxis: Current visit: No Status: Acute Lovenox (9) GERD (gastroesophageal reflux disease): Current visit: No Status: None Continue PPI therapy. (10) HTN (hypertension): Current visit: No Status: None Continue thiazide, ALYSSIA-I, and BB with hold parameters. (11) Discharge planning issues: Current visit: Yes Status: Acute DNR, DNI. Interested in working with pulmonary and hem/onc to find out his options. Probable discharge home tomorrow - with or without oxygen. Subjective Interval history since last seen: When patient ambulated with respiratory therapy this am, his oxygen saturations dropped to 83% on RA. To RT, he refused to go home on oxygen. After speaking with me, he is willing to reconsider. He remains short of breath and wheezes when he ambulates. His epigastric pain was 10/10 his am. He denies any dizziness, chest pain, nausea, vomiting. He is willing to stay in the hospital another day to see if a higher dose of steroids Exam Narrative Exam Narrative: General: Elderly male, sitting comfortably in a chair , less tachypneic at rest today, but I do still hear an audible wheeze after he speaks for a few sentences HEENT: EOMI, wearing nasal canula Heart: RRR, no m/r/g Lungs: Diminished breath sounds B. Slight expiratory wheezing best heard on the R. GI: abdomen soft, minimally tender in epigastrium, nondistended Extremities: 2+ BLE edema Objective Objective Clinical Data: Abnormal lab results 07/06/18 Range/Units 09:00 WBC 12.24 H D (4.4-10.8) k/cumm Absolute Neutrophils 10.36 H (1.2-6.7) k/cumm Absolute Lymphocytes 0.92 L (1.2-3.4) k/cumm Absolute Monocytes 0.80 H (0.11-0.7) k/cumm Vital Signs Temperature 36.3 C L 07/06/18 07:35 Temperature Source Tympanic 07/06/18 07:35 Pulse 74 07/06/18 07:35 Pulse Rhythm Regular 07/06/18 07:28 Pulse 90 07/03/18 19:20 Respiratory Rate 20 07/06/18 07:35 Respiratory Effort Incrsd Work of Breathing 07/06/18 07:28 Respiratory Depth Shallow 07/06/18 07:28 Respiratory Pattern Tachypnea 07/06/18 07:28 Blood Pressure 151/78 H 07/06/18 07:35 Blood Pressure Mean 82 07/03/18 19:01 Blood Pressure Position Sitting 07/03/18 11:38 Pulse Oximetry 94 L 07/06/18 07:35 Oxygen Delivery Method Nasal Cannula 07/06/18 07:35 Oxygen Flow Rate 1 07/06/18 07:35 Pain Level 10 07/06/18 07:09 Comment 07/05/18 07:42 Intake & Output 07/05/18 07/05/18 07/06/18 11:59 23:59 11:59 Intake Total 250 / 250 960 / 960 490 / 490 Output Total 950 / 950 500 / 500 950 / 950 Balance -700 / -700 460 / 460 -460 / -460 Intake: Oral 250 / 250 960 / 960 490 / 490 Output: Urine 950 / 950 500 / 500 950 / 950 Other: Urine Color Yellow Yellow Yellow Urine Appearance Clear Clear Clear Urine Odor Normal None None Voiding Methods Urinal Urinal Urinal Laboratory Results WBC 12.24 k/cumm (4.4-10.8) H D 07/06/18 09:00 RBC 4.64 m/cumm (4.50-6.00) 07/06/18 09:00 Hgb 13.7 g/dL (13.5-17.5) D 07/06/18 09:00 Hct 41.9 % (40.0-50.0) D 07/06/18 09:00 MCV 90.3 fL (80-95) 07/06/18 09:00 MCH 29.5 pg (27.0-33.0) 07/06/18 09:00 MCHC 32.7 g/dL (32.0-36.0) 07/06/18 09:00 RDW 13.1 % (11.8-14.1) 07/06/18 09:00 Plt Count 284 x1000/uL (130-400) 07/06/18 09:00 MPV 10.5 fL (8.0-11.0) 07/06/18 09:00 Immature Gran % 0.6 07/06/18 09:00 Neutrophils % 84.6 07/06/18 09:00 Lymphocytes % 7.5 07/06/18 09:00 Monocytes % 6.5 07/06/18 09:00 Eosinophils % 0.8 07/06/18 09:00 Basophils % 0.0 07/06/18 09:00 Absolute Neutrophils 10.36 k/cumm (1.2-6.7) H 07/06/18 09:00 Absolute Lymphocytes 0.92 k/cumm (1.2-3.4) L 07/06/18 09:00 Absolute Monocytes 0.80 k/cumm (0.11-0.7) H 07/06/18 09:00 Absolute Eosinophils 0.10 k/cumm (0.0-0.7) 07/06/18 09:00 Absolute Basophils 0.00 k/cumm (0.0-0.2) 07/06/18 09:00 Sodium 133 mmol/L (136-145) L 07/05/18 06:30 Potassium 4.5 mmol/L (3.5-5.1) 07/05/18 06:30 Chloride 100 mmol/L (98-107) 07/05/18 06:30 Carbon Dioxide 28.1 mmol/L (21.0-32.0) 07/05/18 06:30 Anion Gap 4.9 mmol/L (3-11) 07/05/18 06:30 BUN 30 mg/dL (7-18) H 07/05/18 06:30 Creatinine 0.87 mg/dL (0.70-1.30) 07/05/18 06:30 Estimated GFR/1.73 m2 >= 60.00 (mL/min/1.73m2) 07/05/18 06:30 Glucose 139 mg/dL (70-100) H 07/05/18 06:30 Lactate 2.8 mmol/L (0.6-1.4) H* 07/03/18 12:20 Calcium 9.6 mg/dL (8.5-10.1) 07/05/18 06:30 Magnesium 1.8 mg/dL (1.8-2.4) 07/05/18 06:30 Total Bilirubin 0.7 mg/dL (0.2-1.0) 07/03/18 12:20 AST 35 U/L (15-37) 07/03/18 12:20 ALT 33 U/L (12-78) 07/03/18 12:20 Alkaline Phosphatase 143 U/L (46-116) H 07/03/18 12:20 Troponin I 0.04 ng/mL (0.00-0.06) 07/03/18 12:20 Total Protein 8.6 g/dL (6.4-8.2) H 07/03/18 12:20 Albumin 3.6 g/dL (3.4-5.0) 07/03/18 12:20 Lipase 391 U/L (73-393) 07/03/18 12:20 Patient ABO/Rh A Negative 07/03/18 12:20 Antibody Screen Negative 07/03/18 12:20
--- NOTE | 2018-07-06 13:07 | PDOC.CMPRO ---
- If Service Date Differs Date of service: 07/06/18 Time of Service: 13:07 Care Management Progress Note S/O: John is sitting up in his chair when this news writer visits this morning, he is pleasant and receptive to discussion. Per morning meeting John is requiring oxygen at home, however is refusing. Dr. Nava met with John today and he is willing to reconsider this if needed. No change in DC plan at this time. A: 73 y/o male admitted 06/23/18 with intractable pain. P: John will return home when medically cleared. ? need for home oxygen. He will have no services and will F/U with PCP, as well as [facility] at time of DC. Family to transport when ready.
[2018-07-06 13:28] LABS: Anion Gap 10.6 mmol/L (3-11); BUN 33 mg/dL (7-18); CO2 29.4 mmol/L (21.0-32.0); CREATININE 1.17 mg/dL (0.70-1.30); Calcium 9.9 mg/dL (8.5-10.1); Chloride 95 mmol/L (98-107); Glucose 139 mg/dL (70-100); Magnesium 1.8 mg/dL (1.8-2.4); Potassium 4.6 mmol/L (3.5-5.1); Sodium 135 mmol/L (136-145)
--- NOTE | 2018-07-06 13:28 | CMPROGNOTE_ITS ---
- If Service Date Differs Date of service: 07/06/18 Time of Service: 13:07 Care Management Progress Note S/O: John is sitting up in his chair when this credit underwriter visits this morning, he is pleasant and receptive to discussion. Per morning meeting John is requiring oxygen at home, however is refusing. Dr. Nava met with John today and he is willing to reconsider this if needed. No change in DC plan at this time. A: 73 y/o male admitted 06/23/18 with intractable pain. P: oJhn will return home when medically cleared. ? need for home oxygen. He will have no services and will F/U with PCP, as well as [facility] at time of DC. Family to transport when ready.
[2018-07-06] MEDS: methylPREDNISolone SUCC 125 MG VIAL 60 MG IVP (15:20)
[2018-07-06] MEDS: Milk of Magnesia 30 ML CUP PO (15:26)
[2018-07-06] MEDS: Acetaminophen 325 MG TAB PO (17:35)
[2018-07-06] MEDS: Atorvastatin 20 MG TAB PO (19:56)
[2018-07-06] MEDS: fentaNYL 25 MCG PATCH TD (19:56)
[2018-07-06] MEDS: Mylanta Suspension 30 ML CUP PO (20:09)
[2018-07-06] MEDS: Enoxaparin 30 MG/0.3 ML SYR SC (21:24)
[2018-07-06] MEDS: Normal Saline Flush 10 ML SYR IVP (21:24)
[2018-07-06] MEDS: Senna TAB 2 TAB PO (21:24)
[2018-07-07] MEDS: methylPREDNISolone SUCC 125 MG VIAL 60 MG IVP ×2 (00:16→07:44)
[2018-07-07] MEDS: Normal Saline Flush 10 ML SYR IVP ×2 (00:17→07:44)
--- NOTE | 2018-07-07 07:00 | DI.US_ITS ---
SYMPTOM/DIAGNOSIS: BILAT LOWER EXTREMITY EDEMA, ? DVT BILATERAL LOWER EXTREMITY ULTRASOUND: The deep veins of both lower extremities show normal compression, augmentation and color flow. No evidence of a deep venous thrombus is seen in either lower extremity. IMPRESSION: No evidence of a deep venous thrombus in either lower extremity.
[2018-07-07 07:02] LABS: Abs Immature Grans 0.01 k/cumm (0.0-0.09); Absolute Lymphocyte Count 0.65 k/cumm (1.2-3.4); Absolute Monocyte Count 0.28 k/cumm (0.11-0.7); Absolute Neutrophil Count 5.71 k/cumm (1.2-6.7); HGB 11.4 g/dL (13.5-17.5); Immature Grans % 0.2; Lymphocytes % 9.8; Mean Corp. HGB Concentration 32.6 g/dL (32.0-36.0); Mean Corpuscular Hemoglobin 30.2 pg (27.0-33.0); Mean Corpuscular Volume 92.8 fL (80-95); Monocytes % 4.2; Neutrophils % 85.8; Platelet Count 311 x1000/uL (130-400); RBC 3.77 m/cumm (4.50-6.00); White Blood Cell Count 6.65 k/cumm (4.4-10.8)
[2018-07-07 07:12] VITALS: RESP 24; RESP 4; O2SAT 93
[2018-07-07 07:12] LABS: Anion Gap 3.5 mmol/L (3-11); BUN 32 mg/dL (7-18); CO2 32.5 mmol/L (21.0-32.0); CREATININE 0.83 mg/dL (0.70-1.30); Calcium 9.3 mg/dL (8.5-10.1); Chloride 99 mmol/L (98-107); Glucose 132 mg/dL (70-100); Magnesium 2.2 mg/dL (1.8-2.4); Potassium 4.6 mmol/L (3.5-5.1); Sodium 135 mmol/L (136-145)
[2018-07-07] MEDS: Albuterol/Ipratropium 3 ML UPD VIAL UPD ×2 (07:12→13:45)
[2018-07-07 07:15] VITALS: O2SAT 93
[2018-07-07] MEDS: Umeclidinium 7 CAP INHALER 1 CAP IH (07:15)
[2018-07-07] MEDS: Budesonide/Formoterol 160/4.5 6 GM 60 PUFF INH IH (07:16)
[2018-07-07 07:38] VITALS: BP 129/63; PULSE 66; RESP 22; TEMP 36.5; O2SAT 96
[2018-07-07] MEDS: Docusate Sodium 100 MG CAP PO (07:43)
[2018-07-07] MEDS: Furosemide 20 MG TAB PO (07:43)
[2018-07-07] MEDS: Aspirin E.C. 81 MG TABEC PO (07:44)
[2018-07-07] MEDS: Loratidine 10 MG TAB PO (07:44)
[2018-07-07] MEDS: Acetaminophen 325 MG TAB PO ×2 (07:44→13:07)
[2018-07-07] MEDS: Omeprazole 20 MG CAPCR 40 MG PO (07:44)
[2018-07-07] MEDS: Lisinopril 20 MG TAB PO (07:44)
[2018-07-07] MEDS: Metoprolol CR 100 MG TABCR PO (07:44)
--- NOTE | 2018-07-07 09:02 | PT.INDS ---
Date of service: 07/07/18 Time of Service: 09:02 PT Notes Inpatient Physical Therapy Discharge Summary Date: 07/07/18 Dates of Service: 07/04/18-07/07/18 SUBJECTIVE: Pt sitting in chair, asking what the plan is to treat his cancer and if he is going to start chemotherapy. Agreeable to therapy session. OBJECTIVE: General Observation: 2 liters 02 NC Pain: no c/o pain- per RN premedicated prior to therapy session Bed Mobility/Transfers: Pt states he is independent into/out of bed. Sit-stand: independent with no device Stand-sit: independent Bed-chair: independent no device Chair-bed: independent no device Gait: Supervision no device 250ft, steady step through gait pattern, no loss of balance. short of breath with exertion but able to carry on conversation on 2 liters 02 NC. Pt instructed in pacing and energy conservation techniques with mobility, pt states he does not feel tired, returned to chair after session completed and performed seated therex. Stairs: up/down 5 steps with railing, independent, step over step sequence Therex: ankle pumps, LAQ, hip flexion x 20 bilaterally, instructed in sitting and supine therex to perform in room to maintain strength during admission Balance: Static Sitting: normal Dynamic Sitting: normal Static Standing: good Dynamic Standing: Fair Assessment: Pt is a 73yr old male admitted abdominal pain, lung mass and T6 vertebral body destructive lesion, in setting of chronic obstructive pulmonary disease, abdominal aortic aneurysm, arteriosclerotic cardiovascular disease, myocardial infarction, peripheral vascular disease, compression fracture, anxiety. Pt was seen for 4 PT Visits. Progressed from SBA transfers to independent, from CGA gait with no device 60ft to supervision gait with no device 250ft, able to perform 5 steps independently, independent with home exercise program. Pt has met therapy goals and is at functional level to return to home setting. Spoke with RN, recommend nursing continue to mobiilze patient in hallways 2-3x/day to maintain mobility until discharge. Goals: 1. Supine-sit: independent 2. Sit-supine: independent 3. Sit-stand: independent 4. Stand-sit: independent 5. Bed-chair: supervision 6. Chair-bed: supervision 7. Gait: supervision with no device 200ft 8. Stairs: up/down 2 steps with railing, supervision Pt met goals # 1-8 DISCHARGE RECOMMENDATIONS: Home, no DME needed TREATMENT CODE/TIME: 25 min TAx1, TP x1 G Codes in the area mobility of walking and moving around projected status GP [id number]. Discharge status (if discharging) GP [id number] -CH Sue Cm PT
[2018-07-07 11:50] VITALS: PULSE 64; PULSE 68; PULSE 74; RESP 20; RESP 24; O2SAT 90; O2SAT 95; O2SAT 96
[2018-07-07 11:55] VITALS: O2SAT 96
--- NOTE | 2018-07-07 12:36 | PDOC.CMDIS ---
- If Service Date Differs Date of service: 07/07/18 Time of Service: 12:36 LACE Index Scoring Tool - Questions: Length of Stay (in days): 4 - 6 Acuity (Admit via E.D.?): Yes Comorbidities: Any Tumor E.D. Visits: 2 - Answers: Total Score: 11 Risk of Readmission: High Risk Care Management Discharge Reason for Hospitalization: Intractable Pain Discharge Plan: John will be discharged home today with [place] [facility] [place] at 10:00 am. CM coordinated appointment with pulmonology and transportation through [facility]. John is now set up through [place] on [employer] for unlimited medical rides through the [facility] services. CM updated referral to [facility] to assist John with options counceling to assist with insurance for prescriptions and other programs he may be elig for. John will be transported home via private car with his brother at time of discharge. CM reviewed how to scheduled transportation two days prior to appointment and contact info for both [facility] and [facility]. Patient/Family Education Needs: Discharge education, limitations and follow up plan of care. Including self management, and ask me three education. Education provided how to scheduled transportation and how to contact area community resources. Services Needed at Discharge: Transportation - MH Services (Omit if N/A) Current MH Services: Other ([place] on aging and [facility] transportation. Outpatient follow up with [place]monology at [facility]
--- NOTE | 2018-07-07 12:42 | CMDISCH_ITS ---
- If Service Date Differs Date of service: 07/07/18 Time of Service: 12:36 LACE Index Scoring Tool - Questions: Length of Stay (in days): 4 - 6 Acuity (Admit via E.D.?): Yes Comorbidities: Any Tumor E.D. Visits: 2 - Answers: Total Score: 11 Risk of Readmission: High Risk Care Management Discharge Reason for Hospitalization: Intractable Pain Discharge Plan: John will be discharged home today with follow up at [facility] [place] 07/14/18 at 10:00 am. CM coordinated appointment with pulmonology and transportation through [facility]. John is now set up through [place] on [employer] for unlimited medical rides through the [facility] services. CM updated referral to [facility] to assist John with options counceling to assist with insurance for prescriptions and other programs he may be elig for. John will be transported home via private car with his brother at time of discharge. CM reviewed how to scheduled transportation two days prior to appointment and contact info for both [facility] and [facility]. Patient/Family Education Needs: Discharge education, limitations and follow up plan of care. Including self management, and ask me three education. Education provided how to scheduled transportation and how to contact area community resources. Services Needed at Discharge: Transportation - MH Services (Omit if N/A) Current MH Services: Other ([place] on aging and [facility] transportation. Outpatient follow up with pulmonology at [facility])
--- NOTE | 2018-07-07 13:11 | W.PM.DS.N ---
Date of service: 07/07/18 Time of Service: 13:11 DS: Diagnosis Discharge Diagnosis (1) Lung mass: Status: Acute (2) Metastatic cancer to spine: Status: Acute (3) Abdominal aortic aneurysm (AAA): Status: Chronic (4) Chronic kidney disease (CKD), stage III (moderate): Status: Chronic (5) Chronic obstructive pulmonary disease (COPD): Status: Chronic (6) ASCVD (arteriosclerotic cardiovascular disease): Status: Chronic (7) Abdominal pain: Status: Acute (8) GERD (gastroesophageal reflux disease): Status: None (9) HTN (hypertension): Status: None Discharge Plan Disposition Patient Disposition: HOME Condition: Serious Discharge Details Reason For Visit: INTRACTABLE PAIN Admit Date/Time: 07/03/18 17:45 Admit Provider: Bradley Lancaster Attending Provider: Bradley Lancaster Primary Care Provider: Fidelina Goodman [facility] Hospital Course: Mr Segal is a 73 year old male with PMHx of non-oxygen dependent COPD, recently treated pneumonia, CAD s/p stent, CKDIII, who was admitted to [facility] on 07/03/18 with a new diagnosis of a left upper lobe lung mass with evidence of metastatic destructive lesion of T6, which likely resulted in the patient having his back pain radiating to the epigastrium. The patient also appeared to have an acute exacerbation of COPD on this admission with a likely component of atelectasis due to the back and epigastric pain. The patient's pain was finally controlled with combination of fentanyl patches (12 mcg + 25 mcg) and oral morphine. Patient's COPD exacerbation was treated with a steroid taper. We were able to wean his oxygen requirement to room air. He is being set up with follow up at [facility] [place] on 07/14/18 for further workup of his mass, at which point his case would be referred to Hem/Onc by the pulmonary office. He is medically stable for discharge with a steroid taper, follow up with his PCP and with above specialties. Home Meds and New Rx's Prescriptions: New acetaminophen [Tylenol] 325 mg Tablet 650 mg PO Q4H PRN PRNQty: 0 RF: 0 docusate sodium [Colace] 100 mg Capsule 100 mg PO TID Qty: 90 RF: 0 furosemide 20 mg Tablet 20 mg PO DAILY Qty: 7 RF: 0 morphine 15 mg Tablet 15 mg PO TID PRN PRNQty: 15 RF: 0 sennosides [Senokot] 8.6 mg Tablet 2 tab PO HS Qty: 60 RF: 0 fentanyl 37.5 mcg/hour patch 72 hour 1 patch TD Q72H Qty: 2 RF: 0 prednisone 20 mg tablet See Label Instructions .ROUTE .COMPLEX Qty: 19 RF: 0 Continue hyoscyamine sulfate 0.125 mg tablet 0.125 - 0.25 mg PO QID PRN (Reason: dyspepsia) Qty: 90 RF: 3 aspirin [Aspir-81] 81 MG tablet,delayed release (DR/EC) 81 mg PO DAILY RF: 0 fluticasone-salmeterol [Advair Diskus] 1 EACH blister with device 1 ea Inhalation BID Qty: 3 RF: 3 albuterol sulfate [ProAir HFA] 8.5 GM HFA aerosol inhaler 1 - 2 puff Inhalation Q4-6H PRN Qty: 3 RF: 3 nitroglycerin [Nitrostat] 0.4 MG tablet, sublingual 0.4 mg Sublingual PRN Qty: 25 RF: 3 umeclidinium [Incruse Ellipta] 62.5 MCG blister with device 62.5 mcg Inhalation DAILY Qty: 3 RF: 3 lisinopril 20 MG tablet 20 mg PO DAILY Qty: 90 RF: 3 metoprolol succinate 100 MG tablet extended release 24 hr 100 mg PO DAILY Qty: 90 RF: 3 loratadine 10 MG tablet 10 mg PO DAILY Qty: 90 RF: 3 Atorvastatin Calcium 20 MG tablet 20 mg PO DAILY Qty: 90 RF: 3 omeprazole 40 mg capsule,delayed release(DR/EC) 40 mg PO BID Qty: 30 RF: 0 Discontinued hydrochlorothiazide 12.5 MG tablet 12.5 mg PO DAILY Qty: 90 RF: 3 Discharge Instructions Instructions: Prednisone (By mouth), Lung Cancer (DC), Back Pain (GEN) Additional Instructions: Finish your prednisone taper as prescribed. Return to the hospital with any fever, bleeding, chest pain, or shortness of breath. Follow up with your PCP and [facility] Pulmonary as below. Referrals: PUL[place]OLOGY,[facility] [place] - 07/14/18 10:00 am (You will be seeing Dr. Martin for a bronchoscopy initial appointment.) Fidelina Goodman NP [Primary Care Provider] - (Hospital follow up) Activity:: Activity as Tolerated Equipment/Supplies:: No Equipment Needed Diet:: Low Sodium Discharge Orders Discharge Orders: Discharge Order (Routine); Ordered 07/07/18 Ordered By: Marlena Nava Exam Narrative Exam Narrative: General: Elderly male, sitting comfortably in a chair, less tachypneic at rest today, but I do still hear an audible wheeze after he speaks for a few sentences HEENT: EOMI, wearing nasal canula Heart: RRR, no m/r/g Lungs: Diminished breath sounds B. GI: abdomen soft, minimally tender in epigastrium, nondistended Extremities: 1+ BLE edema DS: Data Vitals/I&O Vitals and I&O: Vital Signs Temperature 36.5 C 07/07/18 07:38 Temperature Source Tympanic 07/07/18 07:38 Pulse 66 07/07/18 07:38 Pulse Rhythm Regular 07/07/18 08:21 Pulse 90 07/03/18 19:20 Respiratory Rate 22 07/07/18 07:38 Respiratory Effort Incrsd Work of Breathing 07/07/18 08:21 Respiratory Depth Shallow 07/07/18 08:21 Respiratory Pattern Tachypnea 07/07/18 08:21 Blood Pressure 129/63 07/07/18 07:38 Blood Pressure Mean 82 07/03/18 19:01 Blood Pressure Position Sitting 07/03/18 11:38 Pulse Oximetry 96 07/07/18 11:55 Oxygen Delivery Method Room Air 07/07/18 11:55 Oxygen Flow Rate 0 07/07/18 11:55 Pain Level 5 07/07/18 13:07 Comment 07/05/18 07:42 Intake & Output 07/06/18 07/07/18 07/07/18 23:59 11:59 23:59 Intake Total 560 / 560 150 / 150 Output Total 500 / 500 500 / 500 Balance 60 / 60 -350 / -350 Intake: IV 30 / 30 Oral 550 / 550 120 / 120 Output: Urine 500 / 500 500 / 500 Other: Urine Color Yellow Yellow Urine Appearance Clear Clear Urine Odor Normal Stool Size Moderate Stool Characteristics Soft Brown Voiding Methods Urinal Urinal Completed studies during hospitalization [Text1]: CTA chest 07/03/18: 1. Stable abdominal aortic aneurysm with no evidence of leakage or dissection. 2. Spiculated left upper lobe perihilar lung mass highly suspicious for carcinoma with involvement of left hilar and central mediastinal nodes. 3. Apparent destructive lesion of T 6 vertebral body highly suspicious for bony metastatic disease from lung carcinoma. Venous doppler BLE's 07/07/18: IMPRESSION: No evidence of a deep venous thrombus in either lower extremity. Labs on day of discharge: Labs from last 24 hours 07/07/18 07/07/18 07/06/18 06:10 06:10 13:10 WBC 6.65 D RBC 3.77 L Hgb 11.4 L D Hct 35.0 L MCV 92.8 MCH 30.2 MCHC 32.6 RDW 13.0 Plt Count 311 MPV 10.0 Immature Gran % 0.2 Neutrophils % 85.8 Lymphocytes % 9.8 Monocytes % 4.2 Eosinophils % 0.0 Basophils % 0.0 Absolute Neutrophils 5.71 Absolute Lymphocytes 0.65 L Absolute Monocytes 0.28 Absolute Eosinophils 0.00 Absolute Basophils 0.00 Sodium 135 L 135 L Potassium 4.6 4.6 Chloride 99 95 L Carbon Dioxide 32.5 H 29.4 Anion Gap 3.5 10.6 BUN 32 H 33 H Creatinine 0.83 1.17 Estimated GFR/1.73 m2 >= 60.00 >= 60.00 Glucose 132 H 139 H Calcium 9.3 9.9 Magnesium 2.2 1.8 PFSH Lung mass (Acute) Abdominal pain (Acute) Headache HLD (hyperlipidemia) GERD (gastroesophageal reflux disease) HTN (hypertension) IBS (irritable bowel syndrome) (Chronic) ASCVD (arteriosclerotic cardiovascular disease) (Chronic 03/04/13) Essential hypertension (Chronic 03/04/13) PVD (peripheral vascular disease) (Chronic 04/08/15) Hyperlipidemia, unspecified (Chronic 03/04/13) Gastroesophageal reflux disease (Chronic 10/02/11) Compression fracture of vertebral column (Resolved 10/02/11) Chronic obstructive pulmonary disease (COPD) (Chronic 10/02/11) Chronic kidney disease (CKD), stage III (moderate) (Chronic 09/23/13) 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 Father Myocardial infarction Coronary Stent (08/05/06) Repair of inguinal hernia Trigger Finger release (05/06/16) Social History caregiver/support person: Yes household members: family housing: house marital status: single lives independently: No number of children: [facility] [place]: No current occupational status: retired well-balanced diet: about half the time high-fat food intake: 2 times daily daily servings fruits/ve-1 daily servings of milk/calcium: 2-4 eating out: rarely or never reads food labels: seldom or never during the past year weight has: decreased > 10 lbs Smoking/Tobacco Use Status: Former Tobacco Use additional social history: He lives with his brother and 97-year-old mother who has severe dementia. 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 He states he quit smoking and drinking several years ago.
--- NOTE | 2018-07-07 13:18 | DSE_ITS ---
Date of service: 07/07/18 Time of Service: 13:11 DS: Diagnosis Discharge Diagnosis (1) Lung mass: Status: Acute (2) Metastatic cancer to spine: Status: Acute (3) Abdominal aortic aneurysm (AAA): Status: Chronic (4) Chronic kidney disease (CKD), stage III (moderate): Status: Chronic (5) Chronic obstructive pulmonary disease (COPD): Status: Chronic (6) ASCVD (arteriosclerotic cardiovascular disease): Status: Chronic (7) Abdominal pain: Status: Acute (8) GERD (gastroesophageal reflux disease): Status: None (9) HTN (hypertension): Status: None Discharge Plan Disposition Patient Disposition: HOME Condition: Serious Discharge Details Reason For Visit: INTRACTABLE PAIN Admit Date/Time: 07/03/18 17:45 Admit Provider: Bradley Lancaster Attending Provider: Bradley Lancaster Primary Care Provider: Fidelina Goodman [facility] Course Hospital Course: Mr Segal is a 73 year old male with PMHx of non-oxygen dependent COPD, recently treated pneumonia, CAD s/p stent, CKDIII, who was admitted to [facility] on 07/03/18 with a new diagnosis of a left upper lobe lung mass with evidence of metastatic destructive lesion of T6, which likely resulted in the patient having his back pain radiating to the epigastrium. The patient also appeared to have an acute exacerbation of COPD on this admission with a likely component of atelectasis due to the back and epigastric pain. The patient's pain was finally controlled with combination of fentanyl patches (12 mcg + 25 mcg) and oral morphine. Patient's COPD exacerbation was treated with a steroid taper. We were able to wean his oxygen requirement to room air. He is being set up with follow [place] [facility] [place] on 07/14/18 for further workup of his mass, at which point his case would be referred to Hem/Onc by the pulmonary office. He is medically stable for discharge with a steroid taper, follow up with his PCP and with above specialties. Home Meds and New Rx's Prescriptions: New acetaminophen [Tylenol] 325 mg Tablet 650 mg PO Q4H PRN PRNQty: 0 RF: 0 docusate sodium [Colace] 100 mg Capsule 100 mg PO TID Qty: 90 RF: 0 furosemide 20 mg Tablet 20 mg PO DAILY Qty: 7 RF: 0 morphine 15 mg Tablet 15 mg PO TID PRN PRNQty: 15 RF: 0 sennosides [Senokot] 8.6 mg Tablet 2 tab PO HS Qty: 60 RF: 0 fentanyl 37.5 mcg/hour patch 72 hour 1 patch TD Q72H Qty: 2 RF: 0 prednisone 20 mg tablet See Label Instructions .ROUTE .COMPLEX Qty: 19 RF: 0 Continue hyoscyamine sulfate 0.125 mg tablet 0.125 - 0.25 mg PO QID PRN (Reason: dyspepsia) Qty: 90 RF: 3 aspirin [Aspir-81] 81 MG tablet,delayed release (DR/EC) 81 mg PO DAILY RF: 0 fluticasone-salmeterol [Advair Diskus] 1 EACH blister with device 1 ea Inhalation BID Qty: 3 RF: 3 albuterol sulfate [ProAir HFA] 8.5 GM HFA aerosol inhaler 1 - 2 puff Inhalation Q4-6H PRN Qty: 3 RF: 3 nitroglycerin [Nitrostat] 0.4 MG tablet, sublingual 0.4 mg Sublingual PRN Qty: 25 RF: 3 umeclidinium [Incruse Ellipta] 62.5 MCG blister with device 62.5 mcg Inhalation DAILY Qty: 3 RF: 3 lisinopril 20 MG tablet 20 mg PO DAILY Qty: 90 RF: 3 metoprolol succinate 100 MG tablet extended release 24 hr 100 mg PO DAILY Qty: 90 RF: 3 loratadine 10 MG tablet 10 mg PO DAILY Qty: 90 RF: 3 Atorvastatin Calcium 20 MG tablet 20 mg PO DAILY Qty: 90 RF: 3 omeprazole 40 mg capsule,delayed release(DR/EC) 40 mg PO BID Qty: 30 RF: 0 Discontinued hydrochlorothiazide 12.5 MG tablet 12.5 mg PO DAILY Qty: 90 RF: 3 Discharge Instructions Instructions: Prednisone (By mouth), Lung Cancer (DC), Back Pain (GEN) Additional Instructions: Finish your prednisone taper as prescribed. Return to the hospital with any fever, bleeding, chest pain, or shortness of breath. Follow up with your PCP and [facility] Pulmonary as below. Referrals: [place] [place] - 07/14/18 10:00 am (You will be seeing Dr. Martin for a bronchoscopy initial appointment.) Fidelina Goodman NP [Primary Care Provider] - (Hospital follow up) Activity:: Activity as Tolerated Equipment/Supplies:: No Equipment Needed Diet:: Low Sodium Discharge Orders Discharge Orders: Discharge Order (Routine); Ordered 07/07/18 Ordered By: Marlena Nava Exam Narrative Exam Narrative: General: Elderly male, sitting comfortably in a chair , less tachypneic at rest today, but I do still hear an audible wheeze after he speaks for a few sentences HEENT: EOMI, wearing nasal canula Heart: RRR, no m/r/g Lungs: Diminished breath sounds B. GI: abdomen soft, minimally tender in epigastrium, nondistended Extremities: 1+ BLE edema DS: Data Vitals/I&O Vitals and I&O: Vital Signs Temperature 36.5 C 07/07/18 07:38 Temperature Source Tympanic 07/07/18 07:38 Pulse 66 07/07/18 07:38 Pulse Rhythm Regular 07/07/18 08:21 Pulse 90 07/03/18 19:20 Respiratory Rate 22 07/07/18 07:38 Respiratory Effort Incrsd Work of Breathing 07/07/18 08:21 Respiratory Depth Shallow 07/07/18 08:21 Respiratory Pattern Tachypnea 07/07/18 08:21 Blood Pressure 129/63 07/07/18 07:38 Blood Pressure Mean 82 07/03/18 19:01 Blood Pressure Position Sitting 07/03/18 11:38 Pulse Oximetry 96 07/07/18 11:55 Oxygen Delivery Method Room Air 07/07/18 11:55 Oxygen Flow Rate 0 07/07/18 11:55 Pain Level 5 07/07/18 13:07 Comment 07/05/18 07:42 Intake & Output 07/06/18 07/07/18 07/07/18 23:59 11:59 23:59 Intake Total 560 / 560 150 / 150 Output Total 500 / 500 500 / 500 Balance 60 / 60 -350 / -350 Intake: IV 30 / 30 Oral 550 / 550 120 / 120 Output: Urine 500 / 500 500 / 500 Other: Urine Color Yellow Yellow Urine Appearance Clear Clear Urine Odor Normal Stool Size Moderate Stool Characteristics Soft Brown Voiding Methods Urinal Urinal Completed studies during hospitalization [Text1]: CTA chest 07/03/18: 1. Stable abdominal aortic aneurysm with no evidence of leakage or dissection. 2. Spiculated left upper lobe perihilar lung mass highly suspicious for carcinoma with involvement of left hilar and central mediastinal nodes. 3. Apparent destructive lesion of T 6 vertebral body highly suspicious for bony metastatic disease from lung carcinoma. Venous doppler BLE's 07/07/18: IMPRESSION: No evidence of a deep venous thrombus in either lower extremity. Labs on day of discharge: Labs from last 24 hours 07/07/18 07/07/18 07/06/18 06:10 06:10 13:10 WBC 6.65 D RBC 3.77 L Hgb 11.4 L D Hct 35.0 L MCV 92.8 MCH 30.2 MCHC 32.6 RDW 13.0 Plt Count 311 MPV 10.0 Immature Gran % 0.2 Neutrophils % 85.8 Lymphocytes % 9.8 Monocytes % 4.2 Eosinophils % 0.0 Basophils % 0.0 Absolute Neutrophils 5.71 Absolute Lymphocytes 0.65 L Absolute Monocytes 0.28 Absolute Eosinophils 0.00 Absolute Basophils 0.00 Sodium 135 L 135 L Potassium 4.6 4.6 Chloride 99 95 L Carbon Dioxide 32.5 H 29.4 Anion Gap 3.5 10.6 BUN 32 H 33 H Creatinine 0.83 1.17 Estimated GFR/1.73 m2 >= 60.00 >= 60.00 Glucose 132 H 139 H Calcium 9.3 9.9 Magnesium 2.2 1.8 PFSH Lung mass (Acute) Abdominal pain (Acute) Headache HLD (hyperlipidemia) GERD (gastroesophageal reflux disease) HTN (hypertension) IBS (irritable bowel syndrome) (Chronic) ASCVD (arteriosclerotic cardiovascular disease) (Chronic 03/04/13) Essential hypertension (Chronic 03/04/13) PVD (peripheral vascular disease) (Chronic 04/08/15) Hyperlipidemia, unspecified (Chronic 03/04/13) Gastroesophageal reflux disease (Chronic 10/02/11) Compression fracture of vertebral column (Resolved 10/02/11) Chronic obstructive pulmonary disease (COPD) (Chronic 10/02/11) Chronic kidney disease (CKD), stage III (moderate) (Chronic 09/23/13) 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 Father Myocardial infarction Coronary Stent (08/05/06) Repair of inguinal hernia Trigger Finger release (05/06/16) Social History caregiver/support person: Yes household members: family housing: house marital status: single lives independently: No number of children: 0 [facility]: No current occupational status: retired well-balanced diet: about half the time high-fat food intake: 2 times daily daily servings fruits/ve-1 daily servings of milk/calcium: 2-4 eating out: rarely or never reads food labels: seldom or never during the past year weight has: decreased > 10 lbs Smoking/Tobacco Use Status: Former Tobacco Use additional social history: He lives with his brother and 97-year-old mother who has severe dementia. 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 He states he quit smoking and drinking several years ago.
[2018-07-07 13:45] VITALS: RESP 4
--- NOTE | 2018-07-08 09:58 | PDOC.CMPRO ---
- If Service Date Differs Date of service: 07/08/18 Time of Service: 09:58 Care Management Progress Note CM contacted by John r/manav sanuders ([facility]) not having the fentanyl patch on hand. CM contacted [facility] in [place] they do have the medication in stock. Provider will send a new electronic prescription to the pharmacy in [place]. CM contacted John and provided the information and location to citrus picker his medication. SHANAE also provided education as to when the patch needs to be changed, and instructed patient to remove the old patch before replacing the new one. John is able to restate the directions to SHANAE over the phone and reports he understands. He will have his Brother citrus picker his medications at the pharmacy.
--- NOTE | 2018-07-08 10:04 | CMPROGNOTE_ITS ---
- If Service Date Differs Date of service: 07/08/18 Time of Service: 09:58 Care Management Progress Note CM contacted by John r/manav saunders ([facility]) not having the fentanyl patch on hand. CM contacted [facility] in [place] they do have the medication in stock. Provider will send a new electronic prescription to the pharmacy in [place]. 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 SHANAE also provided education as to when the patch needs to be changed, and instructed patient to remove the old patch before replacing the new one. John is able to restate the directions to SHANAE over the phone and reports he understands. He will have his Brother picked edge sewing machine operator his medications at the pharmacy.
== END 2018-07-07 15:10 | disposition home or self-care (01) | DRG 945 ==
LOC: ER 19:16 → MS 19:58
PROVIDERS: Internal Medicine; Admitting Provider Internal Medicine; Emergency Provider Student in an Organized Health Care Education/Training Program; PCP Nurse Practitioner Family; Visit Provider Internal Medicine
DX: G89.3 Neoplasm related pain (acute) (chronic); J44.1 Chronic obstructive pulmonary disease with (acute) exacerbation; I12.9 Hypertensive chronic kidney disease with stage 1 through stage 4 chronic kidney disease, or unspecified chronic kidney disease; N18.3 Chronic kidney disease, stage 3 (moderate); Z87.891 Personal history of nicotine dependence; K21.9 Gastro-esophageal reflux disease without esophagitis; I25.10 Atherosclerotic heart disease of native coronary artery without angina pectoris; Z95.5 Presence of coronary angioplasty implant and graft; E78.5 Hyperlipidemia, unspecified; Z71.89 Other specified counseling; Z51.5 Encounter for palliative care; Z02.9 Encounter for administrative examinations, unspecified; C34.12 Malignant neoplasm of upper lobe, left bronchus or lung; C79.51 Secondary malignant neoplasm of bone
CPT/HCPCS: 36415; 74177; 80048; 80053; 83690; 86850; 86900; 86901; 93005; 94618; 94640; 96361; 96374; 96376; 97110; 97161; 97530; 99222; 99232; 99239; 99255; 99285; 83605; 83735; 84484; 85025; 93010; 93970; J1650; J2930; J3490; J7512; J7620

== ENCOUNTER 2018-07-20 15:37 | Emergency (ER) | payer MEDICARE, SELFPAY ==
[2018-07-20] VITALS (32 sets, daily range): BP systolic 142–160; BP diastolic 76–127; PULSE 81–112; RESP 16–29; TEMP 36.5; O2SAT 91–99
--- NOTE | 2018-07-20 16:04 | DI.CT_ITS ---
SYMPTOMS/DIAGNOSIS: ABD PAIN, UPPER ABD TENDER TO PALPATION, AAA, METS CA CTA ABDOMINAL AND PELVIS: CT angiography was performed with multi slice acquisition and multi planar and 3D reconstruction. CTA of the abdomen and pelvis was performed following the uneventful administration of intravenous contrast material. Comparison 07/03/18. No acute findings are seen in the lung bases. The liver, spleen, pancreas, gallbladder, bile ducts and adrenal glands are unremarkable. The kidneys show normal and symmetric enhancement. No evidence of obstructive uropathy is seen. The urinary bladder is intact. The reproductive organs are unremarkable. There is again seen aneurysmal dilatation of the abdominal aorta measuring up to 4.3 cm in diameter. This is unchanged. No significant abdominal or pelvic adenopathy, ascites or pneumoperitoneum is seen. The bowel shows no evidence of obstruction or inflammation. No findings to suggest an acute appendicitis are present. Degenerative changes are seen in the spine. IMPRESSION: Stable abdominal aortic aneurysm without evidence of rupture. No evidence of an acute abdomen.
--- NOTE | 2018-07-20 16:22 | ED.GENADUL_ITS ---
Discharge Plan Disposition Patient Disposition: HOME Discharge Details Chief Complaint: Chest Pain Clinical Impression: Abdominal pain Reason For Visit: abd pain Primary Care Provider: Fidelina Goodman ED Provider: Marco Antonio Gutierrez Home Meds and New Rx's Prescriptions: No Action hyoscyamine sulfate 0.125 mg tablet 0.125 - 0.25 mg PO QID PRN (Reason: dyspepsia) Qty: 90 RF: 3 clonazepam 0.5 mg tablet 0.5 mg PO BID Qty: 30 RF: 0 fentanyl 37.5 mcg/hour patch 72 hour 1 patch TD Q72H MDD 1 patch Qty: 5 RF: 0 aspirin [Aspir-81] 81 MG tablet,delayed release (DR/EC) 81 mg PO DAILY RF: 0 Advair Diskus 1 EACH blister with device 1 ea Inhalation BID Qty: 3 RF: 3 ProAir HFA 8.5 GM HFA aerosol inhaler 1 - 2 puff Inhalation Q4-6H PRN Qty: 3 RF: 3 nitroglycerin [Nitrostat] 0.4 MG tablet, sublingual 0.4 mg Sublingual PRN Qty: 25 RF: 3 Incruse Ellipta 62.5 MCG blister with device 62.5 mcg Inhalation DAILY Qty: 3 RF: 3 lisinopril 20 MG tablet 20 mg PO DAILY Qty: 90 RF: 3 metoprolol succinate 100 MG tablet extended release 24 hr 100 mg PO DAILY Qty: 90 RF: 3 loratadine 10 MG tablet 10 mg PO DAILY Qty: 90 RF: 3 Atorvastatin Calcium 20 MG tablet 20 mg PO DAILY Qty: 90 RF: 3 furosemide 20 mg tablet 20 mg PO DAILY Qty: 14 RF: 0 Narcan 4 mg/actuation spray,non-aerosol 1 spray KIMBERLY ONCE PRN (Reason: opioid overdose) Qty: 2 RF: 0 morphine concentrate 20 mg/mL syringe 5 - 20 mg SL .Q1-4H MDD 480 mg PRN (Reason: moderate to severe pain or SOB) Qty: 30 RF: 0 omeprazole 40 mg capsule,delayed release(DR/EC) 40 mg PO BID Qty: 30 RF: 0 acetaminophen [Tylenol] 325 mg Tablet 650 mg PO Q4H PRN PRNQty: 0 RF: 0 docusate sodium [Colace] 100 mg Capsule 100 mg PO TID Qty: 90 RF: 0 sennosides [Senokot] 8.6 mg Tablet 2 tab PO HS Qty: 60 RF: 0 morphine 15 mg tablet 15 mg PO TID Qty: 42 RF: 0 Discharge Instructions Instructions: Abdominal Pain (ED) Additional Instructions: Please follow-up with your primary care physician and oncologist. Please contact your primary care physician to arrange follow-up. Return to the ER for any worsening or new concerning symptoms. 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 Consider ruptured AAA, consider ischemic colitis, consider pain related to destructive T6 metastatic lesion. Plan for a CT of the abdomen pelvis to assess for acute surgical pathology. Dilaudid IV for pain. Pepcid IV. 19:33 -- Labs reviewed and nondiagnostic. CTA of the abdomen and pelvis interpreted by radiology: Aneurysmal dilatation of the mid abdominal aorta measuring 4.3 cm in greatest diameter unchanged from prior exam. No significant interval change. Patient reassessed and pain improved. Neb treatment given for COPD. Plan for discharge. Disposition decision was made weighing the risks and benefits of hospitalization versus outpatient treatment, the risk for further decompensation, and the patient's wishes. The patient was stable. Prior to discharge, my usual and customary return precautions were reviewed with the patient - this included follow-up instructions and reason to return to the emergency department if condition worsens, does not improve as expected, or other new concerns arise. Plan for close outpatient followup. HPI General Mode of arrival: wheelchair . Date/Time Provider Initiated Documentation: 07/20/18 15:51 . Limitations to Documentation: no limitations . Information obtained by: EMS . HPI Narrative: 73-year-old male with multiple medical problems including history of non-oxygen dependent COPD, coronary artery disease status post stent, chronic kidney disease, recently diagnosed left upper lobe lung mass with evidence of metastatic destructive lesion of T6, AAA, here with chief complaint of abdominal pain. Patient states that he developed pain in his abdomen described as a burning pain that has been persistent, waxing and waning over the past 1 week. Pain is currently 10/10. No modifiers. He has no associated nausea or vomiting. No fever. Related Data Home Medications Medication Instructions Recorded Confirmed aspirin [Aspir-81] 81 mg PO DAILY tab-cap 12/12/15 07/03/18 Advair Diskus 1 ea INHALATION BID #3 inhaler 08/12/17 07/24/18 ProAir HFA 1 - 2 puff INHALATION Q4-6H PRN #3 09/06/17 07/24/18 inhaler Incruse Ellipta 62.5 mcg INHALATION DAILY #3 11/26/17 07/24/18 inhaler nitroglycerin [Nitrostat] 0.4 mg SUBLINGUAL PRN #25 tab 11/26/17 07/03/18 lisinopril 20 mg PO DAILY #90 tab 12/19/17 07/03/18 loratadine 10 mg PO DAILY #90 tab-cap 12/19/17 07/03/18 metoprolol succinate 100 mg PO DAILY #90 tab 12/19/17 07/03/18 omeprazole 40 mg PO BID #30 cap 06/19/18 07/24/18 hyoscyamine sulfate 0.125 mg tablet 0.125 - 0.25 mg PO QID PRN #90 07/03/18 tab-cap acetaminophen [Tylenol] 650 mg PO Q4H PRN PRN #0 tab 07/07/18 07/24/18 docusate sodium [Colace] 100 mg PO TID #90 cap 07/07/18 sennosides [Senokot] 2 tab PO HS #60 tab 07/07/18 07/24/18 furosemide 20 mg tablet 20 mg PO DAILY #14 tab 07/10/18 morphine 15 mg PO TID #42 tab 07/21/18 07/24/18 clonazepam 0.5 mg tablet 0.5 mg PO BID #30 tab 07/22/18 07/24/18 fentanyl 37.5 mcg/hour transdermal 1 patch TD Q72H #5 each MDD 1 patch 07/22/18 07/24/18 patch naloxone 4 mg/actuation nasal spray 1 spray KIMBERLY ONCE PRN #2 each 07/23/18 morphine concentrate 20 mg/mL oral 5 - 20 mg SL .Q1-4H PRN #30 ml MDD 07/24/18 07/24/18 syringe (FOR ORAL USE ONLY) 480 mg Previous Rx's Medication Instructions Recorded Advair Diskus 1 ea INHALATION BID #3 inhaler 08/12/17 ProAir HFA 1 - 2 puff INHALATION Q4-6H PRN #3 09/06/17 inhaler Incruse Ellipta 62.5 mcg INHALATION DAILY #3 11/26/17 inhaler nitroglycerin [Nitrostat] 0.4 mg SUBLINGUAL PRN #25 tab 11/26/17 lisinopril 20 mg PO DAILY #90 tab 12/19/17 loratadine 10 mg PO DAILY #90 tab-cap 12/19/17 metoprolol succinate 100 mg PO DAILY #90 tab 12/19/17 omeprazole 40 mg PO BID #30 cap 06/19/18 hyoscyamine sulfate 0.125 mg tablet 0.125 - 0.25 mg PO QID PRN #90 07/03/18 tab-cap acetaminophen [Tylenol] 650 mg PO Q4H PRN PRN #0 tab 07/07/18 docusate sodium [Colace] 100 mg PO TID #90 cap 07/07/18 sennosides [Senokot] 2 tab PO HS #60 tab 07/07/18 furosemide 20 mg tablet 20 mg PO DAILY #14 tab 07/10/18 morphine 15 mg PO TID #42 tab 07/21/18 clonazepam 0.5 mg tablet 0.5 mg PO BID #30 tab 07/22/18 fentanyl 37.5 mcg/hour transdermal 1 patch TD Q72H #5 each MDD 1 patch 07/22/18 patch naloxone 4 mg/actuation nasal spray 1 spray KIMBERLY ONCE PRN #2 each 07/23/18 morphine concentrate 20 mg/mL oral 5 - 20 mg SL .Q1-4H PRN #30 ml MDD 07/24/18 syringe (FOR ORAL USE ONLY) 480 mg Allergies Allergy/AdvReac Type Severity Reaction Status Date / Time benazepril Allergy Mild unknown Unverified 07/21/18 09:43 ezetimibe Allergy Mild NO Unverified 07/21/18 09:43 REACTION NOTED pravastatin Allergy Mild NO Unverified 07/21/18 09:43 REACTION NOTED erythromycin base AdvReac Mild GI SYMPTOMS Unverified 07/21/18 09:43 fenofibrate AdvReac Mild ABDOMINAL Unverified 07/21/18 09:43 PAIN niacin AdvReac Mild FLUSHING Unverified 07/21/18 09:43 REDNESS nortriptyline AdvReac Mild NAUSEA Unverified 07/21/18 09:43 omeprazole AdvReac Mild BACK PAIN Unverified 07/21/18 09:43 General Stated Complaint: Chest Pain LUIS: 2 Review of Systems Review of Systems All systems reviewed & are unremarkable except as noted in HPI and below Cardiovascular Denies chest pain and Reports dyspnea (intermittent chronic) Respiratory Reports dyspnea (intermittent chronic) Musculoskeletal Reports back pain PFSH Medical History Lung mass (Acute) Abdominal pain (Acute) Headache HLD (hyperlipidemia) GERD (gastroesophageal reflux disease) HTN (hypertension) IBS (irritable bowel syndrome) (Chronic) ASCVD (arteriosclerotic cardiovascular disease) (Chronic 03/04/13) Essential hypertension (Chronic 03/04/13) PVD (peripheral vascular disease) (Chronic 04/08/15) Hyperlipidemia, unspecified (Chronic 03/04/13) Gastroesophageal reflux disease (Chronic 10/02/11) Compression fracture of vertebral column (Resolved 10/02/11) Chronic obstructive pulmonary disease (COPD) (Chronic 10/02/11) Chronic kidney disease (CKD), stage III (moderate) (Chronic 09/23/13) 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) Anxiety (Chronic 10/02/11) Abdominal aortic aneurysm (AAA) (Chronic 10/02/11) Cancer related pain (Acute) Dyspnea (Acute) Encounter for hospice care discussion (Acute) Fear of (Acute) Hypoxia (Acute) Hypercalcemia (Resolved 07/19/16) 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) Surgical History Coronary Stent (08/05/06) Repair of inguinal hernia Trigger Finger release (05/06/16) Family History Mother Dementia Father Myocardial infarction Social History caregiver/support person: Yes household members: family housing: house lives independently: No number of children: 0 skilled nursing: No current occupational status: retired well-balanced diet: about half the time high-fat food intake: 2 times daily daily servings fruits/ve-1 daily servings of milk/calcium: 2-4 eating out: rarely or never reads food labels: seldom or never during the past year weight has: decreased > 10 lbs Smoking/Tobacco Use Status: Former Tobacco Use additional social history: He lives with his brother and 97-year-old mother who has severe dementia. 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 He states he quit smoking and drinking several years ago. Exam Const General: cooperative and well developed Orientation: alert and awake [facility] Head: normocephalic and atraumatic Mouth: moist mucous membranes Eyes Conjunctivae: normal conjunctivae Sclera: normal sclerae Resp Auscultation: clear to auscultation bilaterally, no rales, no rhonchi and no wheezes Cardio Jugular venous pressure: no JVD Rate: regular rate and not tachycardic Rhythm: regular rhythm GI Palpation: soft, not firm, no guarding, no masses, not rigid and tender in the epigastrum, in the LUQ and in the RUQ Skin General skin exam: no rashes or lesions noted Neuro General: alert, awake, oriented x3 and tone normal Extrem General: no edema Psych Appearance: grossly normal Mental Status: mental status grossly normal Speech and Movement: speech and movement normal Course Vital Signs Temperature 36.5 C 07/20/18 15:48 Pulse 103 H 07/20/18 15:48 Respiratory Rate 16 07/20/18 15:48 Blood Pressure 152/85 H 07/20/18 15:48 Pulse Oximetry 95 07/20/18 15:48 Temperature 36.5 C 07/20/18 15:48 Temperature Source Temporal Artery Scan 07/20/18 15:48 Pulse 103 H 07/20/18 15:48 Respiratory Rate 16 07/20/18 15:48 Respiratory Effort 07/20/18 15:51 Blood Pressure 152/85 H 07/20/18 15:48 Pulse Oximetry 95 07/20/18 15:48 Oxygen Delivery Method Room Air 07/20/18 15:48 Oxygen Flow Rate 0 07/20/18 15:48 Pain Level 10 07/20/18 15:48
[2018-07-20 17:17] LABS: Abs Immature Grans 0.05 k/cumm (0.0-0.09); Absolute Basophil Count 0.01 k/cumm (0.0-0.2); Absolute Lymphocyte Count 0.92 k/cumm (1.2-3.4); Absolute Monocyte Count 0.35 k/cumm (0.11-0.7); Absolute Neutrophil Count 10.45 k/cumm (1.2-6.7); Basophils % 0.1; HCT 43.4 % (40.0-50.0); HGB 14.5 g/dL (13.5-17.5); Immature Grans % 0.4; Lymphocytes % 7.8; Mean Corp. HGB Concentration 33.4 g/dL (32.0-36.0); Mean Corpuscular Hemoglobin 30.1 pg (27.0-33.0); Mean Platelet Volume 9.5 fL (8.0-11.0); Neutrophils % 88.7; Platelet Count 235 x1000/uL (130-400); RBC 4.82 m/cumm (4.50-6.00); RBC Distribution Width 14.5 % (11.8-14.1); White Blood Cell Count 11.78 k/cumm (4.4-10.8)
[2018-07-20 17:40] LABS: ALT 32 U/L (12-78); AST 26 U/L (15-37); Albumin 3.6 g/dL (3.4-5.0); Alkaline Phosphatase 162 U/L (46-116); Anion Gap 9.4 mmol/L (3-11); BUN 29 mg/dL (7-18); Bilirubin, Total 0.8 mg/dL (0.2-1.0); CO2 31.6 mmol/L (21.0-32.0); CREATININE 1.21 mg/dL (0.70-1.30); Calcium 10.2 mg/dL (8.5-10.1); Chloride 93 mmol/L (98-107); Estimated GFR 58.95 (mL/min/1.73m2); Glucose 139 mg/dL (70-100); Potassium 3.6 mmol/L (3.5-5.1); Sodium 134 mmol/L (136-145); Total Protein 7.5 g/dL (6.4-8.2); Troponin I 0.05 ng/mL (0.00-0.06)
[2018-07-20] MEDS: HYDROmorphone 2 MG/ML VIAL 0.5 MG IVP ×2 (17:42→18:55)
[2018-07-20] MEDS: Omnipaque 350 MG/ML 100 ML BTL IJ (18:15)
[2018-07-20] MEDS: FAMOTIDINE 20 MG/50 ML BAG 200 MG IVPB (18:55)
[2018-07-20] MEDS: Normal Saline 500 ML IV (18:56)
--- NOTE | 2018-07-20 19:08 | DI.VRAD_ITS ---
EXAM: CT Angiography Abdomen and Pelvis With Contrast EXAM DATE/TIME: 07/20/2018 4:18 PM CLINICAL HISTORY: 73 years old, male; Pain; Abdominal pain; Other: Abdonimal pain; Upper abd ttp, aaa, metastaic CA TECHNIQUE: Axial computed tomographic angiography images of the abdomen and pelvis with intravenous contrast material, including non-contrast images if performed. MIP and/or 3D reconstructed images were created and reviewed. All CT scans at this facility use at least one of these dose optimization techniques: automated exposure control; mA and/or kV adjustment per patient size (includes targeted exams where dose is matched to clinical indication); or iterative reconstruction. MIP reconstructed images were created and reviewed. CONTRAST: 100 ml of omnipaque 350 administered intravenously. COMPARISON: CT ABDOMEN PELVIS WO 06/16/2018 12:56 PM FINDINGS: Aneurysmal dilatation of the mid abdominal aorta measuring 4.3 cm in greatest dimension unchanged from the prior exam. No other significant change. No focal inflammatory process. No significant free fluid. No bowel obstruction. Mild prominence of the right intrarenal collecting system unchanged. No other evidence of obstructive uropathy. Degenerative changes of the spine again noted. IMPRESSION: No significant interval change with mild/moderate abdominal aortic aneurysm without rupture. Dictated and Authenticated by: Robbi Lackey MD. Ordering:ALBER Bernard MD
[2018-07-20] MEDS: Albuterol/Ipratropium 3 ML UPD VIAL UPD (19:46)
[2018-07-20 19:59] LABS: Lipase 384 U/L (73-393)
== END 2018-07-20 19:20 | disposition home or self-care (01) ==
PROVIDERS: Emergency Provider Student in an Organized Health Care Education/Training Program; PCP Nurse Practitioner Family
DX: R10.9 Unspecified abdominal pain (principal); I71.4 Abdominal aortic aneurysm, without rupture; J44.9 Chronic obstructive pulmonary disease, unspecified
CPT/HCPCS: 36415; 80053; 83690; 86850; 86900; 86901; 96361; 96374; 96375; 99285; 74174; 83605; 84484; 85025; 99284; J3490; J7620

== ENCOUNTER 2018-07-21 09:32 | Emergency (ER) | payer MEDICARE, SELFPAY ==
[2018-07-21] VITALS (55 sets, daily range): BP systolic 124–170; BP diastolic 60–102; PULSE 75–110; RESP 11–30; TEMP 36.6; O2SAT 90–99
--- NOTE | 2018-07-21 09:48 | NUR.NOTE ---
Nursing Note: pt refuses to position for ekg-will attempt again
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
[2018-07-21] MEDS: Pantoprazole 40 MG VIAL IVP (10:39)
[2018-07-21] MEDS: Albuterol/Ipratropium 3 ML UPD VIAL UPD (10:39)
[2018-07-21] MEDS: HYDROmorphone 2 MG/ML VIAL 0.5 MG IVP ×2 (10:40)
[2018-07-21 10:43] LABS: Abs Immature Grans 0.06 k/cumm (0.0-0.09); Absolute Eosinophil Count 0.01 k/cumm (0.0-0.7); Absolute Monocyte Count 0.83 k/cumm (0.11-0.7); Absolute Neutrophil Count 11.26 k/cumm (1.2-6.7); Eosinophils % 0.1; HCT 39.1 % (40.0-50.0); HGB 12.8 g/dL (13.5-17.5); Immature Grans % 0.4; Lymphocytes % 11.8; Mean Corp. HGB Concentration 32.7 g/dL (32.0-36.0); Mean Corpuscular Hemoglobin 30.3 pg (27.0-33.0); Mean Corpuscular Volume 92.7 fL (80-95); Mean Platelet Volume 9.7 fL (8.0-11.0); Neutrophils % 81.7; Platelet Count 214 x1000/uL (130-400); RBC 4.22 m/cumm (4.50-6.00); RBC Distribution Width 14.6 % (11.8-14.1); White Blood Cell Count 13.78 k/cumm (4.4-10.8)
--- NOTE | 2018-07-21 10:43 | NUR.NOTE ---
pt has abdominal pain. RN had PT yesterday PT describes pain exactly the same as previous visit Nursing Note:
[2018-07-21 10:46] LABS: Absolute Lymphocyte Count 1.63 k/cumm (1.2-3.4)
[2018-07-21 11:08] LABS: ALT 29 U/L (12-78); AST 27 U/L (15-37); Albumin 3.3 g/dL (3.4-5.0); Alkaline Phosphatase 150 U/L (46-116); Anion Gap 10.6 mmol/L (3-11); BUN 28 mg/dL (7-18); CO2 32.4 mmol/L (21.0-32.0); CREATININE 1.12 mg/dL (0.70-1.30); Chloride 96 mmol/L (98-107); Glucose 136 mg/dL (70-100); Lipase 338 U/L (73-393); Potassium 3.6 mmol/L (3.5-5.1); Sodium 139 mmol/L (136-145); Total Protein 6.5 g/dL (6.4-8.2); Troponin I 0.05 ng/mL (0.00-0.06)
[2018-07-21 11:59] LABS: D-Dimer 3473 ng/mlFEU (<500)
[2018-07-21] MEDS: HYDROmorphone 2 MG/ML VIAL 1 MG IVP (12:52)
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
== END 2018-07-21 16:23 | disposition home or self-care (01) ==
PROVIDERS: Emergency Provider Student in an Organized Health Care Education/Training Program; PCP Nurse Practitioner Family
DX: R10.13 Epigastric pain (principal); R10.12 Left upper quadrant pain; I71.4 Abdominal aortic aneurysm, without rupture; I25.2 Old myocardial infarction; I25.10 Atherosclerotic heart disease of native coronary artery without angina pectoris; I12.9 Hypertensive chronic kidney disease with stage 1 through stage 4 chronic kidney disease, or unspecified chronic kidney disease; C79.51 Secondary malignant neoplasm of bone; N18.3 Chronic kidney disease, stage 3 (moderate); J44.9 Chronic obstructive pulmonary disease, unspecified; Z87.891 Personal history of nicotine dependence
CPT/HCPCS: 36415; 80053; 83690; 93005; 94640; 96374; 96375; 96376; 99284; 84484; 85025; 85379; 93010; J7620